=== PATIENT | female | born 1985 | race Caucasian/White ===

== ENCOUNTER 2022-01-31 08:45 | Emergency (ER) | payer BC, SELFPAY ==
[2022-01-31 08:49] VITALS: BP 120/82; PULSE 72; RESP 18; TEMP 36.4; O2SAT 99; BMI 32.9
--- NOTE | 2022-01-31 09:10 | CRLHL7_ITS ---
For Patients: As a result of the Century Cures Act, medical imaging exams and procedure reports are released immediately into your electronic medical record. You may view this report before your referring provider. If you have questions, please contact your health care provider. INDICATION: Chest pain no MV TECHNIQUE: Two view chest. FINDINGS: The lungs are clear. The heart, mediastinum and pulmonary vessels are of normal size. There is no evidence of pleural disease. IMPRESSION: Negative chest. Dictated by Prabha Trinidad MD @ 01/31/2022 10:35:56 AM (Electronically Signed)
--- OUTSIDE RECORDS SUMMARY | 2022-01-31 09:17 | XMS_ITS ---
:1985 Author Care Team Providers Name Role Phone MARGUERITE GONZALEZ Primary Care Provider [phone] Allergies Code Code System Name Reaction Severity Status Onset NKDA ? Medications Name Status Start Date Stop Date ? ? amitriptyline 25 mg tablet Active ? Not a vailable TAKE ONE TABLET BY MOUTH AT BEDTIME amoxicillin 875 mg tablet Active ? Not av ailable TAKE ONE TABLET BY MOUTH TWICE DAILY azithromycin 250 mg tablet Active ? Not a vailable TAKE 2 TABLETS BY MOUTH ON DAY 1, THEN TAKE 1 TABLET ONCE DAILY ON DAYS 2 THROUGH 5 azithromycin 500 mg tablet Completed ? 07/07 cefuroxime axetil 250 mg tablet Active ? Not available TAKE ONE TABLET BY MOUTH TWICE DAILY clobetasol 0.05 % topical cream Active ? Not available APPLY SMALL AMOUNT TOPICALLY TO AFFECTE D AREA TWICE DAILY FOR 2 WEEKS NEEDED. doxycycline monohydrate 100 mg capsule Completed ? 07/07/2020 TAKE 1 CAPSULE BY MOUTH TWICE DAILY FOR 14 DAYS fluconazole 100 mg tablet Completed ? 2020 TAKE 1 TABLET BY MOUTH DAILY. fluconazole 150 mg tablet Active ? Not av ailable TAKE 1 TABLET BY MOUTH, MAY REPEAT IN 3-4 DAYS fluticasone propionate 50 mcg/actuation nasal spray,suspension A ctive ? Not available instill 2 SPRAYs into EACH NOSTR DAILY hydrocortisone 2.5 % topical ointment Completed ? 07/07/2020 APPLY TO AFFECTED AREA(S) topically twice daily levofloxacin 500 mg tablet Completed ? 07/07 TAKE 1 TABLET BY MOUTH DAILY for 7 days metronidazole 0.75 % (37.5 mg/5 gram) vaginal gel Active ? Not available Insert 1 applicatorful vaginally at bedtime for 5 nights. nitrofurantoin monohydrate/macrocrystals 100 mg capsule Complete d ? 07/07/2020 TAKE ONE CAPSULE BY MOUTH TWICE DAILY oseltamivir 75 mg capsule Active ? Not av ailable TAKE 1 CAPSULE BY MOUTH TWICE DAILY FOR 5 DAYS phenazopyridine 200 mg tablet Completed ? TAKE ONE TABLET BY MOUTH TWICE DAILY prednisone 20 mg tablet Active ? Not avai lable TAKE ONE TABLET BY MOUTH TWICE DAILY sucralfate 1 gram tablet Active ? Not alyssa ilable take 1 tablet by mouth 4 times daily tamsulosin 0.4 mg capsule Active ? Not av ailable TAKE ONE CAPSULE BY MOUTH DAILY terbinafine HCl 250 mg tablet Completed ? TAKE ONE TABLET BY MOUTH DAILY triamcinolone acetonide 0.1 % topical cream Active ? Not available APPLY TO AFFECTED AREA(S) TOPICALLY TWICE A DAY valacyclovir 500 mg tablet Active ? Not a vailable TAKE 1 TABLET BY MOUTH TWICE DAILY Problems None recorded. Procedures Date Name Performed by ? 06/13/2020 CT, Urogram Information not avai lable Notes: NONE Results Lab Results Date Name Specimen Result Interpretation Description Value Range Status Address ? 07/07/2020 Urinalysis, Dipstick Urine ? Color-Status Yellow ? Urine ? Glucose-Status Negative ? Urine ? Bilirubin-Status Negative ? Urine ? Ketones-Status Negative ? Urine ? Nitrates-Status negative ? Urine ? Blood-Status Moderate ? Urine ? Leuko-Status Negative ? ? 07/07/2020 Urinalysis, Dipstick ? No observation ? ? ? recorded. 07/07/2020 Urinalysis, Dipstick ? No observation ? ? ? recorded. 06/16/2020 Bladder Scan (PROC) ? No observation ? ? ? recorded. 06/16/2020 Urinalysis, Dipstick ? No observation ? ? ? recorded. 06/13/2020 Urinalysis, Dipstick ? No observation ? ? ? recorded. Past Encounters None recorded. Social History Tobacco Smoking Status Never Smoker Vaccine List Notes: NONE Plan of Care Reminders Provider Appointments None recorded. ? ? Lab None recorded. ? ? Referral None recorded. ? ? Procedures None recorded. ? ? Surgeries None recorded. ? ? Imaging None recorded. ? ? Vitals 07/07/2020 01:30PM ESTABLISHED 10 Height Weight BMI 5 ft 2 in 170 lbs 31.1 kg/m2 06/13/2020 01:00PM NEW PATIENT 20 Height Weight BMI 5 ft 2 in 170 lbs 31.1 kg/m2
[2022-01-31] MEDS: 0.9 % SODIUM CHLORIDE 1000 ml 1,000 ML IV (09:50)
[2022-01-31 10:01] LABS: Basophils Absolute Auto 0.02 K/uL (0.00-0.30); Basophils Percent Auto 0.4 % (0.0-3.0); Eosinophils Absolute Auto 0.12 K/uL (0.00-0.50); Eosinophils Percent Auto 2.2 % (0.0-7.0); Hematocrit 38.3 % (33.0-51.0); Hemoglobin* 12.7 gm/dL (12.0-16.0); Immature Granulocytes Abs Auto 0.02 K/uL (0.00-0.30); Lymphocytes Absolute Auto 1.83 K/uL (0.90-2.90); Lymphocytes Percent Auto 32.9 % (20-44); Mean Corpuscular HGB Conc 33 gm/dL (32-36); Mean Corpuscular Hemoglobin 31 pg (26-34); Mean Corpuscular Volume 93 fL (80-100); Monocytes Percent Auto 6.7 % (0.0-11.0); Neutrophils Percent Auto 57.4 % (42.0-72.0); Platelet Count* 290 K/uL (140-440); Red Blood Count 4.11 m/uL (4.00-5.20); White Blood Count* 5.56 K/uL (4.50-11.00)
[2022-01-31] MEDS: GI COCKTAIL (VISC LIDO/ANTACID) 30 ML PO (10:07)
[2022-01-31] MEDS: ASPIRIN 81 MG TAB.CHEW 162 MG PO (10:07)
[2022-01-31] MEDS: KETOROLAC 30 MG/ML inj IVP (10:08)
[2022-01-31] MEDS: PANTOPRAZOLE SODIUM 40 MG INJ IVP (10:09)
[2022-01-31 10:13] LABS: Slide Review Reflex No
[2022-01-31 10:15] LABS: Chloride* 106 mmol/L (96-114); Potassium* 3.9 mmol/L (3.6-5.1); Sodium* 139 mmol/L (135-149)
[2022-01-31 10:18] LABS: Blood Urea Nitrogen* 11 mg/dL (5-24); Carbon Dioxide* 26 mmol/L (20-32); Creatinine* 0.6 mg/dL (0.5-1.5); D Dimer Quantitative* 0.67 ug/ml (0.00-0.50); Est. Creatinine Clearance* 102.52; Estimated Glomerular Filt Rate 119 ml/min; Glucose* 81 mg/dL (60-115)
[2022-01-31 10:19] LABS: Calcium* 8.8 mg/dL (8.4-10.6)
[2022-01-31 10:28] LABS: NT Pro B Type NatriureticPept* 123 PG/mL (0-125)
[2022-01-31 10:35] LABS: C Reactive Protein* < 0.5 mg/dL (0.5-1.0)
--- NOTE | 2022-01-31 10:53 | CRLHL7_ITS ---
For Patients: As a result of the Century Cures Act, medical imaging exams and procedure reports are released immediately into your electronic medical record. You may view this report before your referring provider. If you have questions, please contact your health care provider. Indication: Shortness of breath Technique: Contrast CT PE Comparison: No comparison Findings: Normal caliber thoracic aorta. No pulmonary emboli. No pericardial effusion. Heart size is normal. Lungs appear clear. Impression: 1. No pulmonary emboli. Lungs appear clear. Please note that all CT scans at this facility use dose modulation, iterative reconstruction, and/or weight-based dosing when appropriate to reduce radiation dose to as low as reasonably achievable. Dictated by Prabha Trinidad MD @ 01/31/2022 12:16:08 PM (Electronically Signed)
[2022-01-31 11:00] VITALS: BP 112/84; PULSE 61; RESP 12; O2SAT 100
--- NOTE | 2022-01-31 11:18 | ED_ITS ---
HPI - Chest Pain General Date Seen: 01/31/22 Chief Complaint: Chest Pain Stated Complaint: Chest pain Time Seen by Provider: 01/31/22 08:56 Source: patient Mode of arrival: ambulatory Limitations: no limitations History of Present Illness HPI narrative: 36-year-old female presents here with chest pain she has had now for 3-4 days. She describes pain in the center of her chest radiating across more of a burning (like she smoked 2000 cigarettes) there is no radiation to her back, neck, shoulders, associated with this. She describes it at rest as well as movement. Maybe a little bit more with pressure over her chest region. Denies any rashes associated with this, no burping, no relation to foods, and has not tried anything at home. She does have a history of SVTs in the past, since she was really on but this is different, she does not have a rapid heart rate. This worried her, and she want to come in and get checked. complaint: chest pain Onset (ago): day(s) Timing of current episode: episodic Prior episodes: No Onset: during rest Pain location: substernal and parasternal Pain radiation: none Severity: moderate Relieving factors: nothing Exacerbating factors: nothing Treatment prior to arrival: none Risk Factors Coronary artery disease risk factors: none Thoracic aortic dissection risk factors: none Related Data On Oral Contraceptives: Yes Home Medications Medication Instructions Recorded Confirmed levonorgestrel 20 mcg/24 hours (8 1 device intrauterine ONCE 10/13/21 01/31/22 yrs) 52 mg intrauterine device qyhutyonmbjq-Ed-bmqp-minerals 1 tab PO QDAY 10/13/21 01/31/22 tamsulosin 0.4 mg capsule 0.4 mg PO .Daily as needed PRN 10/13/21 11/12/21 triamcinolone acetonide 0.1 % 1 applic topical BID 10/13/21 01/31/22 topical cream valacyclovir 500 mg tablet 500 mg PO BID 10/14/21 11/12/21 Allergies Allergy/AdvReac Type Severity Reaction Status Date / Time No Known Allergies Allergy Unknown Verified 01/31/22 08:54 Review of Systems Status of ROS Reports: 10 or more systems reviewed and unremarkable except as noted in History and below [facility] Medical History (Updated 01/31/22 @ 12:25 by Stewart Pringle MD) Delivery normal Herpes simplex History of supraventricular tachycardia Supraventricular tachycardia Surgical History (Updated 10/12/21 @ 10:23 by Hardik Chavarria) History of colonoscopy Family History (Updated 10/12/21 @ 10:24 by Hardik Chavarria) Mother Breast cancer Diabetes Maternal Grandmother Breast cancer Father Stroke Social History (Updated 10/12/21 @ 10:24 by Hardik Chavarria) Narrative: does not use illicit drugs IUD (intrauterine device) in place nonsmoker Smoking Status: Never smoker Exam Narrative Exam Narrative: Patient is seen in room 3 in no apparent distress her pupils are equal round reactive to light there is no scleral icterus or redness or TMs are normal her oropharynx is normal, cranial nerves 3-12 are normal, JVP is flat, carotid upstrokes are equal, absence of meningismus is noted. Chest is good air entry bilaterally with absence of wheezes or crackles, easy respirations with no signs of respiratory distress, she is mildly tender over her chest on palpation, on the costochondral areas. S1-S2 is normal there is no S3-S4 clicks murmurs or gallops noted, abdomen is soft there is no guarding no hepato splenomegaly, bowel sounds are normal, extremities are all normal with no edema, moves all extremities independently and well. Neurologically intact in her upper lower extremities, Const Vital Signs, click to edit/add: Vital Signs - 24 hr 01/31/22 08:49 01/31/22 11:00 01/31/22 12:00 Temperature 97.5 F L Pulse Rate [Right Pulse Oximeter] 72 61 64 Respiratory Rate 18 12 12 Blood Pressure [Right Upper Arm] 120/82 112/84 130/95 H Pulse Oximetry 99 100 99 Oxygen Delivery Method Room Air 01/31/22 12:30 01/31/22 12:43 Temperature 97.5 F L Pulse Rate [Right Pulse Oximeter] 61 61 Respiratory Rate 12 12 Blood Pressure [Right Upper Arm] 123/88 123/88 Pulse Oximetry 99 Oxygen Delivery Method Course Course Hospital Course: I went back in and discussed with Radha, her CT scan shows no evidence of a blood clot, her EKG was normal her troponin is normal, her D-dimer was slightly elevated but that was the reason we did the CT scan, her pain is atypical for cardiac disease and I do not think this is related to a PE, I do not think she is having dissection I think this is more likely there mechanical from the chest wall or possibly GI. I think a little bit of prep result would be helpful. Vital Signs Vital signs: Initial Vital Signs Temperature 97.5 F L 01/31/22 08:49 Temperature Source Temporal Artery Scan 01/31/22 08:49 Pulse Rate 72 01/31/22 08:49 Respiratory Rate 18 01/31/22 08:49 Blood Pressure 120/82 01/31/22 08:49 Blood Pressure Mean 94 01/31/22 08:49 Blood Pressure Position Sitting 01/31/22 08:49 Pulse Oximetry 99 01/31/22 08:49 Oxygen Delivery Method 01/31/22 08:49 Vital Signs Temperature 97.5 F L 01/31/22 08:49 Pulse Rate 72 01/31/22 08:49 Respiratory Rate 18 01/31/22 08:49 Blood Pressure 120/82 01/31/22 08:49 Pulse Oximetry 99 01/31/22 08:49 Oxygen Delivery Method 01/31/22 08:49 Temperature 97.5 F L 01/31/22 12:43 Pulse Rate 61 01/31/22 12:43 Respiratory Rate 12 01/31/22 12:43 Blood Pressure 123/88 01/31/22 12:43 Pulse Oximetry 99 01/31/22 12:30 Oxygen Delivery Method 01/31/22 08:49 MDM - Chest Pain MDM Narrative Medical decision making narrative: During the evaluation of this patient I considered multiple differential diagnosis is. The life-threatening differential diagnosis include coronary disease/MA, pulmonary embolism, pneumothorax, pneumonia, and aortic dissection. Other differential diagnosis included but were not limited to pericarditis, myocarditis, chest wall pain, GERD, esophageal rupture, rib fracture contusion, pleurisy, as well as other etiologies. Medical Records Data Attestation: I reviewed the patient's medical records. Lab Data Attestation: I reviewed the patient's lab results. Lab results narrative: Review of her lab test did show her D-dimer was elevated, in the setting of chest pain along with her use of oral contraceptives I discussed with her getting a CT of her chest, which she agreed too. We will go ahead and get this done. To rule out pulmonary embolism. Labs: Lab Results 10/30/22 10/30/22 10/30/22 Range/Units 09:50 09:50 09:50 WBC 5.56 (4.50-11.00) K/uL RBC 4.11 (4.00-5.20) m/uL Hgb 12.7 (12.0-16.0) gm/dL Hct 38.3 (33.0-51.0) % MCV 93 (80-100) fL MCH 31 (26-34) pg MCHC 33 (32-36) gm/dL RDW Coeff of Larry 12.0 (11.5-15.5) % Plt Count 290 (140-440) K/uL Neut % (Auto) 57.4 (42.0-72.0) % Lymph % (Auto) 32.9 (20-44) % Thomas % (Auto) 6.7 (0.0-11.0) % Eos % (Auto) 2.2 (0.0-7.0) % Baso % (Auto) 0.4 (0.0-3.0) % Neut # (Auto) 3.20 (1.7-7.0) K/uL Lymph # (Auto) 1.83 (0.90-2.90) K/uL Thomas # (Auto) 0.40 (0.00-0.90) K/UL Eos # (Auto) 0.12 (0.00-0.50) K/uL Baso # (Auto) 0.02 (0.00-0.30) K/uL Abs Immat Gran (auto) 0.02 (0.00-0.30) K/uL D-Dimer Quant (PE/DVT) 0.67 H (0.00-0.50) ug/ml Sodium 139 (135-149) mmol/L Potassium 3.9 (3.6-5.1) mmol/L Chloride 106 (96-114) mmol/L Carbon Dioxide 26 (20-32) mmol/L BUN 11 (5-24) mg/dL Creatinine 0.6 (0.5-1.5) mg/dL Estimated Creat Clear 102.52 Estimated GFR 119 ml/min Glucose 81 (60-115) mg/dL Calcium 8.8 (8.4-10.6) mg/dL C-Reactive Protein < 0.5 L (0.5-1.0) mg/dL NT-Pro-B Natriuret Pep 123 (0-125) PG/mL POC Troponin I (0.01-0.04) ng/ml 01/31/22 Range/Units 09:50 WBC (4.50-11.00) K/uL RBC (4.00-5.20) m/uL Hgb (12.0-16.0) gm/dL Hct (33.0-51.0) % MCV (80-100) fL MCH (26-34) pg MCHC (32-36) gm/dL RDW Coeff of Larry (11.5-15.5) % Plt Count (140-440) K/uL Neut % (Auto) (42.0-72.0) % Lymph % (Auto) (20-44) % Thomas % (Auto) (0.0-11.0) % Eos % (Auto) (0.0-7.0) % Baso % (Auto) (0.0-3.0) % Neut # (Auto) (1.7-7.0) K/uL Lymph # (Auto) (0.90-2.90) K/uL Thomas # (Auto) (0.00-0.90) K/UL Eos # (Auto) (0.00-0.50) K/uL Baso # (Auto) (0.00-0.30) K/uL Abs Immat Gran (auto) (0.00-0.30) K/uL D-Dimer Quant (PE/DVT) (0.00-0.50) ug/ml Sodium (135-149) mmol/L Potassium (3.6-5.1) mmol/L Chloride (96-114) mmol/L Carbon Dioxide (20-32) mmol/L BUN (5-24) mg/dL Creatinine (0.5-1.5) mg/dL Estimated Creat Clear Estimated GFR ml/min Glucose (60-115) mg/dL Calcium (8.4-10.6) mg/dL C-Reactive Protein (0.5-1.0) mg/dL NT-Pro-B Natriuret Pep (0-125) PG/mL POC Troponin I 0.00 L (0.01-0.04) ng/ml ECG Data Attestation: I personally reviewed and interpreted this ECG as follows: ECG interpretation date: 01/31/22 Prior ECG tracings: available for review Interpretation: EKG shows normal sinus rhythm, with mild sinus arrhythmia, with the ventricular rate is 63, no acute ST wave changes. Discharge Plan Discharge Clinical Impression: Chest pain Patient Disposition: Home, Self-Care Condition: Stable Instructions: Chest Pain (DC) Additional Instructions: Home, rest. use of Tylenol for the discomfort in her chest, I would also suggest using Prilosec 20 mg a day for the next 3-4 weeks, this is best purchased at [employer] or [employer] as it is the cheapest there. Follow-up with primary care if ongoing signs and symptoms, consideration of other testing such as upper endoscopy if this continues and the Prilosec does not help. The good news is the heart and lungs all tested out normal. Prescriptions: No Action tamsulosin 0.4 mg capsule 0.4 mg PO .Daily as needed PRN pqsbtyjoraoc-Gh-ygmh-minerals Tablet 1 tab PO QDAY levonorgestrel 20 mcg/24 hours (7 yrs) 52 mg intrauterine device 1 device intrauterine ONCE Rx Instructions: as a single dose triamcinolone acetonide 0.1 % cream 1 applic topical BID valacyclovir 500 mg tablet 500 mg PO BID Follow Up/Referrals: Malena Aguayo PA-C [Primary Care Provider] - Stand Alone Forms: [employer] Info Instructions
[2022-01-31] MEDS: ACETAMINOPHEN 500 MG TABLET 1000 MG PO (11:54)
[2022-01-31 12:00] VITALS: BP 130/95; PULSE 64; RESP 12; O2SAT 99
[2022-01-31 12:30] VITALS: BP 123/88; PULSE 61; RESP 12; O2SAT 99
[2022-01-31 12:43] VITALS: BP 123/88; PULSE 61; RESP 12; TEMP 36.4
== END 2022-01-31 12:44 | disposition home or self-care (01) ==
PROVIDERS: Emergency Provider Family Medicine; PCP Physician Assistant Medical
DX: R07.9 Chest pain, unspecified (principal)
CPT/HCPCS: 36415; 71046; 71260; 80048; 83880; 85025; 85379; 86140; 93005; 96374; 96375; 99284; 99285; A9270; C9113; J1885; J7030; Q9967

== ENCOUNTER 2022-06-30 14:20 | Outpatient (CLI) | payer BC, SELFPAY | END 2022-06-30 14:21 | disposition home or self-care (01) | PROVIDERS: PCP Physician Assistant Medical; Visit Provider Physician Assistant Medical | DX: R10.9 Unspecified abdominal pain (principal) | CPT/HCPCS: 80076; 83690 ==

== ENCOUNTER 2023-01-26 09:36 | Emergency (ER) | payer BC, SELFPAY ==
[2023-01-26 09:58] VITALS: BP 142/86; PULSE 77; RESP 18; TEMP 36.1; O2SAT 98; BMI 32.0
[2023-01-26 10:31] VITALS: O2SAT 99
--- NOTE | 2023-01-26 10:32 | ED_ITS ---
HPI - General Adult General Chief complaint: Arrhythmia/Palpitations Stated complaint: irregular heartbeat Time Seen by Provider: 01/26/23 10:27 History of Present Illness HPI narrative: Patient is a 37 year white female has had history of ?tachycardia?, but for the last 3 days has had regular pounding-type heart rate. She has not been sick has not had a fever chills cough. She has not had any bleeding or clotting problems. Her chart was reviewed she has a history of alcohol use although denies that anxiety GE reflux pleuradynia. Patient reports she has had occasional transient shortness of breath from the heart palpitation. She has worn a hot heart monitor recently and no evidence was found of any arrhythmia. Denies any history of chest pain or cardiac procedures. Not on any home meds, no allergies Related Data Home Medications Medication Instructions Recorded Confirmed levonorgestrel 21 mcg/24 hours (8 1 device intrauterine ONCE 10/13/21 12/16/22 yrs) 52 mg intrauterine device ymqmuahpblue-Te-zpnj-minerals 1 tab PO QDAY 10/13/21 12/16/22 valacyclovir 500 mg tablet 500 mg PO QDAY PRN 12/16/22 12/16/22 Allergies Allergy/AdvReac Type Severity Reaction Status Date / Time No Known Allergies Allergy Unknown Verified 12/16/22 13:37 Review of Systems Status of ROS: Reports: 10 or more systems reviewed and unremarkable except as noted in History and below PFSH [facility] Medical History Urinary tract infection ?N39.0 - Urinary tract infection, site not specified (ICD-10) Herpes simplex ?B00.9 - Herpesviral infection, unspecified (ICD-10) Supraventricular tachycardia ?I47.1 - Supraventricular tachycardia (ICD-10) History of supraventricular tachycardia ?Z86.79 - Personal history of other diseases of the circulatory system (ICD-10) Delivery normal ?O80 - Encounter for full-term uncomplicated delivery (ICD-10) Surgical History History of colonoscopy ?Z98.890 - Other specified postprocedural states (ICD-10) Family History Mother Breast cancer Diabetes Maternal Grandmother Breast cancer Father Stroke Social History Narrative: does not use illicit drugs IUD (intrauterine device) in place nonsmoker Smoking Status: Never smoker Exam Narrative: Exam Narrative: Objective: Vital signs are unremarkable, pulse is 77 and regular HEENT is unremarkable, patient is alert oriented Neck is supple Chest is clear Heart rhythm regular with occasional ectopic beat noted, no murmur Extremities are no edema, neurologic nonfocal Const: Vital Signs, click to edit/add: Vital Signs - 24 hr 01/26/23 09:58 01/26/23 10:31 01/26/23 11:35 Temperature 97.0 F L Pulse Rate 73 Pulse Rate [Right Pulse Oximeter] 77 Respiratory Rate 18 18 Blood Pressure 123/90 H Blood Pressure [Ri ght Upper Arm] 142/86 H Pulse Oximetry 98 99 Oxygen Delivery Me thod Room Air Course Vital Signs Vital signs: Initial Vital Signs Temperature 97.0 F L 01/26/23 09:58 Temperature Source Temporal Artery Scan 01/26/23 09:58 Pulse Rate 77 01/26/23 09:58 Respiratory Rate 18 01/26/23 09:58 Blood Pressure 142/86 H 01/26/23 09:58 Blood Pressure Mean 104 01/26/23 09:58 Blood Pressure Position Sitting 01/26/23 09:58 Pulse Oximetry 98 01/26/23 09:58 Oxygen Delivery Method Room Air 01/26/23 09:58 Vital Signs Temperature 97.0 F L 01/26/23 09:58 Pulse Rate 77 01/26/23 09:58 Respiratory Rate 18 01/26/23 09:58 Blood Pressure 142/86 H 01/26/23 09:58 Pulse Oximetry 98 01/26/23 09:58 Oxygen Delivery Method Room Air 01/26/23 09:58 Temperature 97.0 F L 01/26/23 09:58 Pulse Rate 73 01/26/23 11:35 Respiratory Rate 18 01/26/23 11:35 Blood Pressure 123/90 H 01/26/23 11:35 Pulse Oximetry 99 01/26/23 10:31 Oxygen Delivery Method Room Air 01/26/23 09:58 Medical Decision Making [facility] Narrative Medical decision making narrative: 37-year-old female with history of palpitations, history of ?tachycardia?, with now episodes of hard heartbeats intermittently or 3 days. Think be appropriate to do lab studies thyroid profile, point of care troponin, electrolytes, IV fluid to be given, patient will leave with a Holter monitor. She did describe what looked like a hard heart beat and a transient paused and looked like a PAC on her telemetry. Will make sure electrolytes are normal. She denies any illicit drug use or medications that she has taken recently Addendum 1:28 p.m.: Patient's white count hemoglobin are normal, D-dimer was elevated 0.[address] angiogram of the chest is negative for PE or pneumonia. She has 2 very small pulmonary nodules that by definition and risk stratification look like they do not need follow-up, would have her talk about this with regular doctor, some people repeat a CT in about 12 months. ER profile is unremarkable CRP is negative point of care troponin is negative, EKG looks unremarkable. At this point I think a Holter be a good idea and follow up with primary care to discuss both her CT findings and her Holter monitor results. She could schedule this within the next 4-5 days. Return sooner as needed. Lab Data Labs: Lab Results 01/26/23 01/26/23 Range/Units 10:32 10:45 WBC 6.78 (4.50-11.00) K/uL RBC 4.36 (4.00-5.20) m/uL Hgb 13.7 (12.0-16.0) gm/dL Hct 42.1 (33.0-51.0) % MCV 97 (80-100) fL MCH 31 (26-34) pg MCHC 33 (32-36) gm/dL RDW Coeff of Larry 11.8 (11.5-15.5) % Plt Count 373 (140-440) K/uL Neut % (Auto) 57.7 (42.0-72.0) % Lymph % (Auto) 33.9 (20-44) % Williams % (Auto) 5.9 (0.0-11.0) % Eos % (Auto) 1.8 (0.0-7.0) % Baso % (Auto) 0.4 (0.0-3.0) % Neut # (Auto) 3.91 (1.7-7.0) K/uL Lymph # (Auto) 2.30 (0.90-2.90) K/uL Williams # (Auto) 0.40 (0.00-0.90) K/UL Eos # (Auto) 0.12 (0.00-0.50) K/uL Baso # (Auto) 0.03 (0.00-0.30) K/uL Abs Immat Gran (auto) 0.02 (0.00-0.30) K/uL Imm/Tot Granulo (auto) 0.3 % D-Dimer Quant (PE/DVT) 0.60 H (0.00-0.50) ug/ml Sodium 139 (135-149) mmol/L Potassium 4.1 (3.6-5.1) mmol/L Chloride 106 (96-114) mmol/L Carbon Dioxide 23 (20-32) mmol/L Anion Gap 10 (7-15) mEq/L BUN 14 (5-24) mg/dL Creatinine 0.6 (0.5-1.5) mg/dL Estimated Creat Clear 101.53 Estimated GFR 118 ml/min Glucose 75 (60-115) mg/dL Calcium 9.1 (8.4-10.6) mg/dL C-Reactive Protein < 0.5 L (0.5-1.0) mg/dL TSH 1.420 (0.270-4.20) uIU/mL HCG, Qual Negative (Negative) POC Troponin I 0.00 L (0.01-0.04) ng/ml Discharge Plan Discharge Clinical Impression: Heart palpitations Patient Disposition: Home, Self-Care Condition: Stable Additional Instructions: With a Holter monitor, you have 2 very tiny lung nodules that basically probably do not need recheck but you could talk about this with her regular doctor. Would recommend normal activity and avoid caffeine, recommend discussing with in the next 4-5 days with your regular doctor your CT report as well as your Holter monitor results. Return to ED sooner problems or concerns. Activity Level: No Restrictions Discharge Diet: Regular Prescriptions: No Action valacyclovir 500 mg tablet 500 mg PO QDAY PRN vqogrxgrcjju-Wg-vcly-minerals Tablet 1 tab PO QDAY levonorgestrel 20 mcg/24 hours (7 yrs) 52 mg intrauterine device 1 device intrauterine ONCE Rx Instructions: as a single dose Follow Up/Referrals: Malena Aguayo PA-C [Primary Care Provider] - Stand Alone Forms: [employer] Info Instructions
[2023-01-26] MEDS: 0.9 % SODIUM CHLORIDE 1000 ml 1,000 ML 6000 ML IV (10:54)
[2023-01-26 10:59] LABS: Basophils Absolute Auto 0.03 K/uL (0.00-0.30); Basophils Percent Auto 0.4 % (0.0-3.0); Eosinophils Absolute Auto 0.12 K/uL (0.00-0.50); Eosinophils Percent Auto 1.8 % (0.0-7.0); Hematocrit 42.1 % (33.0-51.0); Hemoglobin* 13.7 gm/dL (12.0-16.0); Immature Granulocytes Abs Auto 0.02 K/uL (0.00-0.30); Immature Granulocytes Pct Auto 0.3 %; Lymphocytes Percent Auto 33.9 % (20-44); Mean Corpuscular HGB Conc 33 gm/dL (32-36); Mean Corpuscular Hemoglobin 31 pg (26-34); Mean Corpuscular Volume 97 fL (80-100); Monocytes Percent Auto 5.9 % (0.0-11.0); Neutrophils Absolute Auto 3.91 K/uL (1.7-7.0); Neutrophils Percent Auto 57.7 % (42.0-72.0); Platelet Count* 373 K/uL (140-440); RDW Coefficient of Variation % 11.8 % (11.5-15.5); Red Blood Count 4.36 m/uL (4.00-5.20); White Blood Count* 6.78 K/uL (4.50-11.00)
[2023-01-26 11:14] LABS: Chloride* 106 mmol/L (96-114); Slide Review Reflex No
[2023-01-26 11:15] LABS: Potassium* 4.1 mmol/L (3.6-5.1); Sodium* 139 mmol/L (135-149)
[2023-01-26 11:17] LABS: Anion Gap 10 mEq/L (7-15); Carbon Dioxide* 23 mmol/L (20-32); Creatinine* 0.6 mg/dL (0.5-1.5); Est. Creatinine Clearance* 101.53; Estimated Glomerular Filt Rate 118 ml/min
[2023-01-26 11:18] LABS: Blood Urea Nitrogen* 14 mg/dL (5-24); Calcium* 9.1 mg/dL (8.4-10.6); Glucose* 75 mg/dL (60-115)
[2023-01-26 11:21] LABS: C Reactive Protein* < 0.5 mg/dL (0.5-1.0)
[2023-01-26 11:35] VITALS: BP 123/90; PULSE 73; RESP 18
--- NOTE | 2023-01-26 11:35 | CRLHL7_ITS ---
For Patients: As a result of the Century Cures Act, medical imaging exams and procedure reports are released immediately into your electronic medical record. You may view this report before your referring provider. If you have questions, please contact your health care provider. INDICATION: Shortness of breath, chest pain. COMPARISON: CT chest 01/31/2022. TECHNIQUE: CT chest angiogram PE protocol acquired with 95 cc of Isovue 370 IV contrast. Coronal and sagittal reconstructions. 2D and 3D MIP images for post processing were performed and interpreted on an independent workstation, and 3D images were permanently archived. FINDINGS: Normal heart size. Normal caliber thoracic aorta and central pulmonary arteries. No acute pulmonary embolism identified. No pericardial effusion. No thoracic lymphadenopathy. The imaged thyroid gland is normal in appearance. No focal consolidation, pleural effusion, or pneumothorax. Minimal bibasilar atelectasis. Stable 4 mm noncalcified pulmonary nodule in the right middle lobe (series 5, image 101). Stable 5 mm noncalcified pulmonary nodule along the left major fissure (image 75). No central endobronchial lesion or significant bronchial wall thickening. The visualized upper abdomen is unremarkable. The bones are within normal limits. IMPRESSION: 1. Negative for acute pulmonary embolism. No other acute findings in the chest. 2. Two stable noncalcified pulmonary nodules measuring up to 5 mm. Please see follow-up guidelines below. [employer] GUID[employer] - SOLID NODULES: : MULTIPLE LOW RISK - nodule less than 6 mm: No routine follow-up. - nodule 6-8 mm: CT at 3-6 months, then consider CT at 18-24 months. - nodule greater than 8 mm: CT at 3-6 months, then consider CT at 18-24 months. MULTIPLE HIGH RISK - nodule less than 6 mm: Optional CT at 12 months. - nodule 6-8 mm: CT at 3-6 months, then at 18-24 months. - nodule greater than 8 mm: CT at 3-6 months, then at 18-24 months. Please note that all CT scans at this facility use dose modulation, iterative reconstruction, and/or weight-based dosing when appropriate to reduce radiation dose to as low as reasonably achievable. Dictated by Rita Bush MD @ 01/26/2023 1:08:41 PM (Electronically Signed)
[2023-01-26 12:36] LABS: HCG Qualitative Serum* Negative (Negative)
== END 2023-01-26 13:44 | disposition home or self-care (01) ==
PROVIDERS: Emergency Provider Family Medicine; PCP Physician Assistant Medical
DX: R00.2 Palpitations (principal)
CPT/HCPCS: 36415; 71275; 80048; 84443; 84484; 84703; 85025; 85379; 86140; 93005; 93225; 93226; 94761; 99284; 99285; J7030; Q9967

== ENCOUNTER 2023-03-11 13:53 | Outpatient (CLI) | payer BC, SELFPAY | END 2023-03-11 13:54 | disposition home or self-care (01) | LOC: RAD 13:55 | PROVIDERS: PCP Physician Assistant Medical; Visit Provider Physician Assistant Medical | DX: R00.2 Palpitations (principal) | CPT/HCPCS: 93306 ==

== ENCOUNTER 2023-05-12 07:32 | Emergency (ER) | payer MEDICAID, SELFPAY ==
[2023-05-12 07:37] VITALS: BP 125/82; PULSE 78; RESP 16; TEMP 36.4; O2SAT 98; BMI 32.9
[2023-05-12 07:55] LABS: Appearance Urine Clear (Clear); Bilirubin Urine Negative (Negative); Blood Urine 3+ (Negative); Color Urine Yellow (Yellow); Glucose Urine Negative (Negative); Ketones Urine Negative (Negative); Leukocyte Esterase Urine Negative (Negative); Nitrite Urine Negative (Negative); Protein Urine Negative (Negative); Specific Gravity Urine >= 1.030 (1.000-1.030); Urobilinogen Urine 0.2 (0.2-1.0)
[2023-05-12 08:25] LABS: Basophils Absolute Auto 0.03 K/uL (0.00-0.30); Basophils Percent Auto 0.4 % (0.0-3.0); Eosinophils Percent Auto 1.3 % (0.0-7.0); Hematocrit 39.9 % (33.0-51.0); Hemoglobin* 13.1 gm/dL (12.0-16.0); Immature Granulocytes Abs Auto 0.03 K/uL (0.00-0.30); Immature Granulocytes Pct Auto 0.4 %; Lymphocytes Absolute Auto 1.57 K/uL (0.90-2.90); Lymphocytes Percent Auto 21.2 % (20-44); Mean Corpuscular HGB Conc 33 gm/dL (32-36); Mean Corpuscular Hemoglobin 31 pg (26-34); Mean Corpuscular Volume 95 fL (80-100); Monocytes Percent Auto 6.5 % (0.0-11.0); Neutrophils Percent Auto 70.2 % (42.0-72.0); Platelet Count* 327 K/uL (140-440); RDW Coefficient of Variation % 12.3 % (11.5-15.5); White Blood Count* 7.41 K/uL (4.50-11.00)
[2023-05-12 08:26] LABS: Bacteria Urine Few; RBC Urine 0-2 (0-2); Squamous Epithelial Cell Urine Few (None-Few); WBC Urine 0-2 (0-5)
--- NOTE | 2023-05-12 08:26 | ED_ITS ---
HPI - General Adult General Chief complaint: Abdominal Pain Stated complaint: abdominal pain Time Seen by Provider: 05/12/23 07:54 Source: patient Mode of arrival: ambulatory Limitations: no limitations History of Present Illness HPI narrative: 37-year-old female coming in today complaining of abdominal pain for 1 week. Pain started on the left upper quadrant then radiated down the left side of the abdomen into the left lower quadrant where it remained for a couple of days. Then it radiated across the lower abdomen into the right lower quadrant, followed by radiation into the right upper quadrant. The pain on the left side is now completely gone. The right upper quadrant remains, and now she feels it in the epigastric region. She describes it as a burning sensation over the last 1 day. No nausea or vomiting. Normal appetite. No diarrhea or constipation, states that she has been going regularly. No urinary symptoms such as frequency, urgency or dysuria. No fevers or chills. She denies any increased or new physical activity. Patient is on control, partner has had a vasectomy. Patient is wondering if there are any blood test that can be done to rule out cancer. Related Data Home Medications Medication Instructions Recorded Confirmed levonorgestrel 21 mcg/24 hours (8 1 device intrauterine ONCE 10/13/21 05/12/23 yrs) 52 mg intrauterine device khbqqatrmaoi-De-vfwf-minerals 1 tab PO QDAY 10/13/21 05/12/23 valacyclovir 500 mg tablet 500 mg PO QDAY PRN 12/16/22 05/12/23 Previous Rx's Medication Instructions Recorded metoprolol succinate 25 mg 50 mg (2 x 25 mg) PO QDAY #180 tabs 04/11/23 tablet,extended release 24 hr Allergies Allergy/AdvReac Type Severity Reaction Status Date / Time No Known Allergies Allergy Unknown Verified 05/12/23 07:44 Review of Systems Status of ROS: Reports: 10 or more systems reviewed and unremarkable except as noted in History and below [facility] Medical History Normal echocardiogram (~03/11/23) 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 Alert and oriented. Answers questions appropriately. Mood and affect are appropriate. Thoughts are goal oriented and rational. No tangential or magical thinking noted. Patient speaks in full sentences without needing to catch her breath. HEENT: Normocephalic atraumatic. Pupils are equally round reactive to light. Extraocular muscles are intact. Conjunctivae are moist without any icterus noted. Moist mucous membranes. Neck is soft. Cardiovascular: Heart is regular rate and rhythm S1 and S2 are present without any murmurs. Lungs: Clear to auscultation bilaterally no wheezes rhonchi or rales are appreciated. Patient takes deep breaths without any discomfort. Abdomen: Soft and nontender nondistended with normal bowel sounds. No guarding or rebound. No masses or organomegaly appreciated. Extremities: Bilateral lower extremities are without edema. Normal DP and PT pulses. Skin: Well perfused without any obvious rashes. Const: Vital Signs, click to edit/add: Vital Signs - 24 hr 05/12/23 07:37 Temperature 97.6 F Pulse Rate [Pulse Oximeter] 78 Respiratory Rate 16 Blood Pressure [Ri ght Upper Arm] 125/82 Pulse Oximetry 98 Oxygen Delivery Me thod Room Air Course Course ED Course: Differential diagnosis at this times include musculoskeletal pain, excess gas, constipation. Given the description of her pain and her exam today, I do not feel that she has any life-threatening intra-abdominal pathology going on including cholecystitis, pancreatitis, ischemic bowel, appendicitis, aortic aneurysm, pyelonephritis or ectopic . We discussed that there are no blood test specific for generalized cancer. Patient would like to proceed with blood test to rule out infection, inflammation and organ function. CBCs entirely normal. UA does state 3+ blood, however, only 0-2 RBCs. Patient states that blood in her urine is not new. Chemistries, LFTs, CRP, lipase all normal. Urine test is negative. Vital Signs Vital signs: Initial Vital Signs Temperature 97.6 F 05/12/23 07:37 Temperature Source Temporal Artery Scan 05/12/23 07:37 Pulse Rate 78 05/12/23 07:37 Respiratory Rate 16 05/12/23 07:37 Blood Pressure 125/82 05/12/23 07:37 Blood Pressure Mean 96 05/12/23 07:37 Blood Pressure Position Sitting 05/12/23 07:37 Pulse Oximetry 98 05/12/23 07:37 Oxygen Delivery Method Room Air 05/12/23 07:37 Vital Signs Temperature 97.6 F 05/12/23 07:37 Pulse Rate 78 05/12/23 07:37 Respiratory Rate 16 05/12/23 07:37 Blood Pressure 125/82 05/12/23 07:37 Pulse Oximetry 98 05/12/23 07:37 Oxygen Delivery Method Room Air 05/12/23 07:37 Temperature 97.6 F 05/12/23 07:37 Pulse Rate 78 05/12/23 07:37 Respiratory Rate 16 05/12/23 07:37 Blood Pressure 125/82 05/12/23 07:37 Pulse Oximetry 98 05/12/23 07:37 Oxygen Delivery Method Room Air 05/12/23 07:37 Medical Decision Making MDM Narrative Medical decision making narrative: 37-year-old female with nonspecific abdominal pain. Workup unremarkable. Patient reassured. We discussed increased fluids, MiraLax and reasons for follow-up. Medical Records Medical records reviewed: Yes I reviewed the patient's medical records Lab Data Lab results reviewed: Yes I reviewed the patient's lab results Labs: Lab Results 05/12/23 05/12/23 05/12/23 Range/Units 07:45 08:15 08:15 WBC 7.41 (4.50-11.00) K/uL RBC 4.20 (4.00-5.20) m/uL Hgb 13.1 (12.0-16.0) gm/dL Hct 39.9 (33.0-51.0) % MCV 95 (80-100) fL MCH 31 (26-34) pg MCHC 33 (32-36) gm/dL RDW Coeff of Larry 12.3 (11.5-15.5) % Plt Count 327 (140-440) K/uL Neut % (Auto) 70.2 (42.0-72.0) % Lymph % (Auto) 21.2 (20-44) % [place] % (Auto) 6.5 (0.0-11.0) % Eos % (Auto) 1.3 (0.0-7.0) % Baso % (Auto) 0.4 (0.0-3.0) % Neut # (Auto) 5.20 (1.7-7.0) K/uL Lymph # (Auto) 1.57 (0.90-2.90) K/uL [place] # (Auto) 0.50 (0.00-0.90) K/UL Eos # (Auto) 0.10 (0.00-0.50) K/uL Baso # (Auto) 0.03 (0.00-0.30) K/uL Abs Immat Gran (auto) 0.03 (0.00-0.30) K/uL Imm/Tot Granulo (auto) 0.4 % Sodium Cancelled 141 Potassium Cancelled Chloride Carbon Dioxide Anion Gap BUN Creatinine Estimated Creat Clear Estimated GFR Glucose Calcium Total Bilirubin (0.1-1.5) mg/dL Direct Bilirubin (0.0-0.5) mg/dL AST (12-35) U/L ALT (4-35) U/L Alkaline Phosphatase (40-150) U/L C-Reactive Protein (0.5-1.0) mg/dL Total Protein (6.0-8.3) g/dL Albumin (3.3-5.0) g/dL Lipase (23-300) U/L Urine Color Yellow (Yellow) Urine Appearance Clear (Clear) Urine pH 6.0 (5.0-8.5) Ur Specific [place] >= 1.030 (1.000-1.030) Urine Protein Negative (Negative) Urine Glucose (UA) Negative (Negative) Urine Ketones Negative (Negative) Urine Blood 3+ A (Negative) Urine Nitrite Negative (Negative) Urine Bilirubin Negative (Negative) Urine Urobilinogen 0.2 (0.2-1.0) Ur Leukocyte Esterase Negative (Negative) Urine RBC 0-2 (0-2) Urine WBC 0-2 (0-5) Ur Squamous Epith Cells Few (None-Few) Urine Bacteria Few A (None) Urine Mucus Few A (None) 05/12/23 05/12/23 05/12/23 Range/Units 08:15 08:15 08:15 WBC (4.50-11.00) K/uL RBC (4.00-5.20) m/uL Hgb (12.0-16.0) gm/dL Hct (33.0-51.0) % MCV (80-100) fL MCH (26-34) pg MCHC (32-36) gm/dL RDW Coeff of Larry (11.5-15.5) % Plt Count (140-440) K/uL Neut % (Auto) (42.0-72.0) % Lymph % (Auto) (20-44) % [place] % (Auto) (0.0-11.0) % Eos % (Auto) (0.0-7.0) % Baso % (Auto) (0.0-3.0) % Neut # (Auto) (1.7-7.0) K/uL Lymph # (Auto) (0.90-2.90) K/uL [place] # (Auto) (0.00-0.90) K/UL Eos # (Auto) (0.00-0.50) K/uL Baso # (Auto) (0.00-0.30) K/uL Abs Immat Gran (auto) (0.00-0.30) K/uL Imm/Tot Granulo (auto) % Sodium Potassium 4.3 Chloride Cancelled 107 Carbon Dioxide Cancelled 25 Anion Gap Cancelled BUN Creatinine Estimated Creat Clear Estimated GFR Glucose Calcium Total Bilirubin (0.1-1.5) mg/dL Direct Bilirubin (0.0-0.5) mg/dL AST (12-35) U/L ALT (4-35) U/L Alkaline Phosphatase (40-150) U/L C-Reactive Protein (0.5-1.0) mg/dL Total Protein (6.0-8.3) g/dL Albumin (3.3-5.0) g/dL Lipase (23-300) U/L Urine Color (Yellow) Urine Appearance (Clear) Urine pH (5.0-8.5) Ur Specific [place] (1.000-1.030) Urine Protein (Negative) Urine Glucose (UA) (Negative) Urine Ketones (Negative) Urine Blood (Negative) Urine Nitrite (Negative) Urine Bilirubin (Negative) Urine Urobilinogen (0.2-1.0) Ur Leukocyte Esterase (Negative) Urine RBC (0-2) Urine WBC (0-5) Ur Squamous Epith Cells (None-Few) Urine Bacteria (None) Urine Mucus (None) 05/12/23 05/12/23 05/12/23 Range/Units 08:15 08:15 08:15 WBC (4.50-11.00) K/uL RBC (4.00-5.20) m/uL Hgb (12.0-16.0) gm/dL Hct (33.0-51.0) % MCV (80-100) fL MCH (26-34) pg MCHC (32-36) gm/dL RDW Coeff of Larry (11.5-15.5) % Plt Count (140-440) K/uL Neut % (Auto) (42.0-72.0) % Lymph % (Auto) (20-44) % [place] % (Auto) (0.0-11.0) % Eos % (Auto) (0.0-7.0) % Baso % (Auto) (0.0-3.0) % Neut # (Auto) (1.7-7.0) K/uL Lymph # (Auto) (0.90-2.90) K/uL [place] # (Auto) (0.00-0.90) K/UL Eos # (Auto) (0.00-0.50) K/uL Baso # (Auto) (0.00-0.30) K/uL Abs Immat Gran (auto) (0.00-0.30) K/uL Imm/Tot Granulo (auto) % Sodium Potassium Chloride Carbon Dioxide Anion Gap 9 BUN Cancelled 11 Creatinine Cancelled 0.6 Estimated Creat Clear Cancelled Estimated GFR Glucose Calcium Total Bilirubin (0.1-1.5) mg/dL Direct Bilirubin (0.0-0.5) mg/dL AST (12-35) U/L ALT (4-35) U/L Alkaline Phosphatase (40-150) U/L C-Reactive Protein (0.5-1.0) mg/dL Total Protein (6.0-8.3) g/dL Albumin (3.3-5.0) g/dL Lipase (23-300) U/L Urine Color (Yellow) Urine Appearance (Clear) Urine pH (5.0-8.5) Ur Specific [place] (1.000-1.030) Urine Protein (Negative) Urine Glucose (UA) (Negative) Urine Ketones (Negative) Urine Blood (Negative) Urine Nitrite (Negative) Urine Bilirubin (Negative) Urine Urobilinogen (0.2-1.0) Ur Leukocyte Esterase (Negative) Urine RBC (0-2) Urine WBC (0-5) Ur Squamous Epith Cells (None-Few) Urine Bacteria (None) Urine Mucus (None) 05/12/23 05/12/23 05/12/23 Range/Units 08:15 08:15 08:15 WBC (4.50-11.00) K/uL RBC (4.00-5.20) m/uL Hgb (12.0-16.0) gm/dL Hct (33.0-51.0) % MCV (80-100) fL MCH (26-34) pg MCHC (32-36) gm/dL RDW Coeff of Larry (11.5-15.5) % Plt Count (140-440) K/uL Neut % (Auto) (42.0-72.0) % Lymph % (Auto) (20-44) % [place] % (Auto) (0.0-11.0) % Eos % (Auto) (0.0-7.0) % Baso % (Auto) (0.0-3.0) % Neut # (Auto) (1.7-7.0) K/uL Lymph # (Auto) (0.90-2.90) K/uL [place] # (Auto) (0.00-0.90) K/UL Eos # (Auto) (0.00-0.50) K/uL Baso # (Auto) (0.00-0.30) K/uL Abs Immat Gran (auto) (0.00-0.30) K/uL Imm/Tot Granulo (auto) % Sodium Potassium Chloride Carbon Dioxide Anion Gap BUN Creatinine Estimated Creat Clear 101.53 Estimated GFR Cancelled 118 Glucose Cancelled 104 Calcium Cancelled Total Bilirubin (0.1-1.5) mg/dL Direct Bilirubin (0.0-0.5) mg/dL AST (12-35) U/L ALT (4-35) U/L Alkaline Phosphatase (40-150) U/L C-Reactive Protein (0.5-1.0) mg/dL Total Protein (6.0-8.3) g/dL Albumin (3.3-5.0) g/dL Lipase (23-300) U/L Urine Color (Yellow) Urine Appearance (Clear) Urine pH (5.0-8.5) Ur Specific [place] (1.000-1.030) Urine Protein (Negative) Urine Glucose (UA) (Negative) Urine Ketones (Negative) Urine Blood (Negative) Urine Nitrite (Negative) Urine Bilirubin (Negative) Urine Urobilinogen (0.2-1.0) Ur Leukocyte Esterase (Negative) Urine RBC (0-2) Urine WBC (0-5) Ur Squamous Epith Cells (None-Few) Urine Bacteria (None) Urine Mucus (None) 05/12/23 Range/Units 08:15 WBC (4.50-11.00) K/uL RBC (4.00-5.20) m/uL Hgb (12.0-16.0) gm/dL Hct (33.0-51.0) % MCV (80-100) fL MCH (26-34) pg MCHC (32-36) gm/dL RDW Coeff of [place] (11.5-15.5) % Plt Count (140-440) K/uL Neut % (Auto) (42.0-72.0) % Lymph % (Auto) (20-44) % [place] % (Auto) (0.0-11.0) % Eos % (Auto) (0.0-7.0) % Baso % (Auto) (0.0-3.0) % Neut # (Auto) (1.7-7.0) K/uL Lymph # (Auto) (0.90-2.90) K/uL [place] # (Auto) (0.00-0.90) K/UL Eos # (Auto) (0.00-0.50) K/uL Baso # (Auto) (0.00-0.30) K/uL Abs Immat Gran (auto) (0.00-0.30) K/uL Imm/Tot Granulo (auto) % Sodium Potassium Chloride Carbon Dioxide Anion Gap BUN Creatinine Estimated Creat Clear Estimated GFR Glucose Calcium 9.2 Total Bilirubin 0.7 (0.1-1.5) mg/dL Direct Bilirubin 0.1 (0.0-0.5) mg/dL AST 22 (12-35) U/L ALT 17 (4-35) U/L Alkaline Phosphatase 66 (40-150) U/L C-Reactive Protein 0.7 (0.5-1.0) mg/dL Total Protein 7.6 (6.0-8.3) g/dL Albumin 4.6 (3.3-5.0) g/dL Lipase 101 (23-300) U/L Urine Color (Yellow) Urine Appearance (Clear) Urine pH (5.0-8.5) Ur Specific [place] (1.000-1.030) Urine Protein (Negative) Urine Glucose (UA) (Negative) Urine Ketones (Negative) Urine Blood (Negative) Urine Nitrite (Negative) Urine Bilirubin (Negative) Urine Urobilinogen (0.2-1.0) Ur Leukocyte Esterase (Negative) Urine RBC (0-2) Urine WBC (0-5) Ur Squamous Epith Cells (None-Few) Urine Bacteria (None) Urine Mucus (None) Discharge Plan Discharge Clinical Impression: Abdominal pain Patient Disposition: Home, Self-Care Condition: Stable Additional Instructions: Nothing specific was found as the reason for your abdominal pain today. Potential causes of discomfort include mild constipation, increased gas or muscle pain. Recommend you increase your daily fluid intake, can start taking daily MiraLax to see if this helps symptoms. Follow-up with your primary care provider as needed. Prescriptions: No Action valacyclovir 500 mg tablet 500 mg PO QDAY PRN qazorgfcwafw-Vu-jvqr-minerals Tablet 1 tab PO QDAY levonorgestrel 20 mcg/24 hours (7 yrs) 52 mg intrauterine device 1 device intrauterine ONCE Rx Instructions: as a single dose metoprolol succinate 25 mg tablet extended release 24 hr 50 mg PO QDAY Qty: 180 1RF Rx Instructions: 2 tablets daily for palpitations and Blood pressure Follow Up/Referrals: Malena Aguayo PA-C [Primary Care Provider] - Stand Alone Forms: [employer] Info Instructions
[2023-05-12 08:27] LABS: Mucus Urine Few
[2023-05-12 08:27] LABS: Slide Review Reflex No
--- OUTSIDE RECORDS SUMMARY | 2023-05-12 08:31 | XMS_ITS | Clinical Summary ---
Author Name Unknown Organization [facility] Address [place], [place] [address] Care Team Providers Care Dosimetrist Name Role Phone Malena Serrano PA-C Primary Care Provider Allergies No known active allergies Medications Medication Sig Dispensed Refills Start Date End Date Status metoprolol succinate (TOPROL XL) 25 mg Sustained-Release tablet TAKE ONE TABLET BY MOUTH DAILY for palpitations and blood pressure* 0 02/02/2023 Active Encounters Date Type Department Care Team Description 03/11/2023 2:00 PM ROTARY DERRICK OPERATOR Orders Only [facility] [place] [facility] [address] [place] [address] 2 scans: (2-Ord) ECHO TTE COMPLETE WO CONTRAST ([id number]) from Last 3 Months Social History Tobacco Use Types Packs/Day Years Used Date Smoking Tobacco: Never Smokeless Tobacco: Never Tobacco Cessation:Counseling Given: Not Answered Alcohol Use Standard Drinks/Week Comments Yes 3 (1 standard drink = 0.6 oz pur e alcohol) Social Connections Answer Date Recorded Frequency of Communication with Friends and Fami ly Not on file 04/16/2022 Sex and Gender Information Value Date Recorded Sex Assigned at Not on file Gender Identity Not on file Sexual Orientation Not on file Obstetrics History Last Filed Vital Signs Vital Sign Reading Time Taken Comments Blood Pressure 104/60 02/08/2023 12:46 PM ROTARY DERRICK OPERATOR Pulse 77 02/08/2023 12:46 PM ROTARY DERRICK OPERATOR Temperature - - Respiratory Rate - - Oxygen Saturation 98% 02/08/2023 12:46 PM ROTARY DERRICK OPERATOR Inhaled Oxygen Concentration - - Weight 79.8 kg (176 lb) 02/08/2023 12:46 PM ROTARY DERRICK OPERATOR Height 157.5 cm (5' 2) 02/08/2023 12:46 PM ROTARY DERRICK OPERATOR Body Mass Index 32.19 02/08/2023 12:46 PM ROTARY DERRICK OPERATOR Plan of Treatment Health Maintenance Due Date Last Done Comments COVID-19 vaccine series (#1) 02/19/1986 Tdap 1996 Depression screening for age 12+ 1997 HIV for age 15-65 2000 Hepatitis C screening for age 18-79 08/20/2003 Tetanus booster 2005 Pap test for age 21-65 05/15/2022 , 05/15/2019, 10/13/2017, Additional history exists Influenza for age 9-49 12/03/2022 BMI (ht and wt on same day) for age 18+ 02/09/2024 02/08/2023 Pneumococcal series for age 6-64 Aged Out No longer eligible based on patient's age to complete this topic Procedures Procedure Name Priority Date/Time Associated Diagnosis Comments ECHO TTE COMPLETE WO CONTRAST Routine 03/11/2023 2:39 PM ROTARY DERRICK OPERATOR Palpitations from Last 3 Months Results * ECHO TTE COMPLETE WO CONTRAST (03/11/2023 2:39 PM ROTARY DERRICK OPERATOR) AORTIC VALVE MEAN PG 3 mmHg EJECTION FRACTION 59 % PEAK TR VELOCITY 2.1 m/s LVEDD 4.9 cm EJECTION FRACTION 55 - 60% Anatomical Region Laterality Modality Ultrasound 03/11/2023 2:10 PM ROTARY DERRICK OPERATOR Narrative 03/11/2023 3:09 PM ROTARY DERRICK OPERATOR ECHOCARDIOGRAM PAUL FITCH ? Accession#: ?? [id number] : ?1985 37 years Study Date: ?? 03/11/2023 2:10:08 PM Gender: F ?BP: ? 118/77 mmHg Height: 157.00 cm ?BSA: ?1.81 m? ? ? Weight: 80.00 kg ? Tech: ? MCK ? Referring MD: MALENA SERRANO Site: ? [facility] Reading Location: Mobile-OP Patient Location: Outpatient. Procedure: 2D, Color Doppler and Spectral Doppler. Indication for study: Palpitations Cardiac Rhythm: Regular.Study quality: Fair. Final Impressions: 1. Normal LV size, normal wall thickness, normal function with an estimated EF of 55 - 60%. 2. Right ventricular cavity size is normal, global systolic RV function is normal. 3. No significant valve disease detected. Comparison There are no prior studies on this patient for comparison purposes. Chamber Sizes and Function Normal left ventricular size, normal wall thickness, normal global systolic function with an estimated EF of 55 - 60%. Left atrial size is normal. Left atrial pressure is normal. Right ventricular cavity size is normal, global systolic RV function is normal. RV wall thickness is normal. The right atrium is normal. Right atrial volume index is 14 ml/m? ? ?. Right atrial area is 13 cm? ? ?. The pulmonary artery is of normal size and origin. The sinus of Valsalva is normal sized. The ascending aorta is normal sized. Valves, RV Pressures and Diastolic Function The aortic valve is normal in structure and trileaflet, no stenosis and no regurgitation. The mitral valve is normal in structure, no mitral regurgitation. Normal diastolic function. The tricuspid valve is normal in structure. Tricuspid regurgitation is trace regurgitation. The tricuspid regurgitant velocity is 2.1 m/s, the estimated right ventricular systolic pressure is 17 mmHg plus right atrial pressure. The pulmonic valve is normal. Trace pulmonary regurgitation. Pulmonary veins show a normal flow pattern. Masses, Effusion, Shunts There is no pericardial effusion. The inferior vena cava is normal sized, respiratory size variation greater than 50%. No left to right shunting was detected by limited color flow Doppler interrogation of the interatrial septum. No masses or clots seen. MEASUREMENTS AND CALCULATIONS 2-D Measurements and LV Function: LVID (d) 4.9 cm LV FS% (2D) ?? 29 % LVID (s) 3.5 cm LVOT diameter 2.2 cm IVS (d) ??0.9 cm HR ?59 bpm LVPW (d) 1.0 cm LA Vol index ??14 ml/m2 Ao Sinus 2.9 cm RA Vol index ??14 ml/m2 Asc Ao ?? 2.8 cm RA area ? 13 cm? ? ? LA ? 3.1 cm RV Max 4C (d) 3.8 cm Diastology: Mitral ?Tissue Doppler E Peak 0.8 m/s ??e', Septum ? 0.09 m/s A Peak 0.7 m/s ??e', Lateral ?0.12 m/s E/A ?1.1 ?E/e' Average ?? 7.66 DT ? 261 msec Aortic Valve: Vmax ? 1.3 m/s ??JUAN DIEGO (V) ?? 3.22 cm? ? ? VTI ?0.27 m ?? JUAN DIEGO (I) ?? 2.77 cm? ? ? LVOT V max 1.0 m/s ??Max PG ?6 mmHg LVOT VTI ?? 0.19 m ?? Mean PG ?? 3 mmHg SV ? 76 ml ?Dim Index 0.70 SV index ?? 42 ml/m? ? ? CO ?4.5 l/min ?CI ?2.5 l/min/m? ? ? Mitral Valve: MVA ?2.9 cm? ? ? MV P 1/2 76 msec Tricuspid Valve and estimated PA pressures: TR Vmax 2.1 m/s TAPSE 2.8 cm TR maxG 17 mmHg . This study was interpreted by an [facility] accredited facility. CC: HIM (med records) [facility]. ??Final ?? Procedure Note Bobby Murphy MD - 03/11/2023 ECHOCARDIOGRAM PAUL FITCH : 1985 37 years Study Date: 03/11/2023 2:10:08 PM Gender: F BP: 118/77 mmHg Height: 157.00 cm BSA: 1.81 m? ? ? Weight: 80.00 kg Tech: [facility] Referring MD: MALENA SERRANO Site: [facility] Reading Location: Mobile-OP Patient Location: Outpatient. Procedure: 2D, Color Doppler and Spectral Doppler. Indication for study: Palpitations Cardiac Rhythm: Regular.Study quality: Fair. Final Impressions: 1. Normal LV size, normal wall thickness, normal function with anestimated EF of 55 - 60%. 2. Right ventricular cavity size is normal, global systolic RV functionis normal. 3. No significant valve disease detected. Comparison There are no prior studies on this patient for comparison purposes. Chamber Sizes and Function Normal left ventricular size, normal wall thickness, normal globalsystolic function with an estimated EF of 55 - 60%. Left atrial size isnormal. Left atrial pressure is normal. Right ventricular cavity size isnormal, global systolic RV function is normal. RV wall thickness isnormal. The right atrium is normal. Right atrial volume index is 14ml/m? ? ?. Right atrial area is 13 cm? ? ?. The pulmonary artery is of normalsize and origin. The sinus of Valsalva is normal sized. The ascendingaorta is normal sized. Valves, RV Pressures and Diastolic Function The aortic valve is normal in structure and trileaflet, no stenosis and noregurgitation. The mitral valve is normal in structure, no mitralregurgitation. Normal diastolic function. The tricuspid valve is normal instructure. Tricuspid regurgitation is trace regurgitation. The tricuspidregurgitant velocity is 2.1 m/s, the estimated right ventricular systolicpressure is 17 mmHg plus right atrial pressure. The pulmonic valve isnormal. Trace pulmonary regurgitation. Pulmonary veins show a normal flowpattern. Masses, Effusion, Shunts There is no pericardial effusion. The inferior vena cava is normal sized,respiratory size variation greater than 50%. No left to right shunting wasdetected by limited color flow Doppler interrogation of the interatrialseptum. No masses or clots seen. MEASUREMENTS AND CALCULATIONS 2-D Measurements and LV Function: LVID (d) 4.9 cm LV FS% (2D) 29 % LVID (s) 3.5 cm LVOT diameter 2.2 cm IVS (d) 0.9 cm HR 59 bpm LVPW (d) 1.0 cm LA Vol index 14 ml/m2 Ao Sinus 2.9 cm RA Vol index 14 ml/m2 Asc Ao 2.8 cm RA area 13 cm? ? ? LA 3.1 cm RV Max 4C (d) 3.8 cm Diastology: Mitral Tissue Doppler E Peak 0.8 m/s e', Septum 0.09 m/s A Peak 0.7 m/s e', Lateral 0.12 m/s E/A 1.1 E/e' Average 7.66 DT 261 msec Aortic Valve: Vmax 1.3 m/s JUAN DIEGO (V) 3.22 cm? ? ? VTI 0.27 m JUAN DIEGO (I) 2.77 cm? ? ? LVOT V max 1.0 m/s Max PG 6 mmHg LVOT VTI 0.19 m Mean PG 3 mmHg SV 76 ml Dim Index 0.70 SV index 42 ml/m? ? ? CO 4.5 l/min CI 2.5 l/min/m? ? ? Mitral Valve: MVA 2.9 cm? ? ? MV P 1/2 76 msec Tricuspid Valve and estimated PA pressures: TR Vmax 2.1 m/s TAPSE 2.8 cm TR maxG 17 mmHg . This study was interpreted by an [facility] accredited facility. CC: [facility] ([facility]) [facility]. Final Malena Serrano PA-C ECHO ORD from Last 3 Months Care Teams Dosimetrist Relationship Specialty Start Date End Date Malena Serrano PA-C [address] [place] [address] PCP - General Emergency Medicine 04/09/22
--- OUTSIDE RECORDS SUMMARY | 2023-05-12 08:31 | XMS_ITS | Data Portability ---
Author Name Unknown Address [address] [place] [address] Phone [phone] Organization [facility] Address [address] [place] [address] Care Team Providers Care Sales Account Coordinator Name Role Phone MARGUERITE GONZALEZ Primary Care Provider [phone] Assessment No assessment recorded. Plan of Treatment Reminders Order Date Submit Date Provider Last Modified By Organization Details Last Modified Time Details Appointments None recorded. Lab urinalysis , dipstick 2020 021 [email or web address] Not available 14:46:28 urinalysis , dipstick 2020 021 CLAUDE Not available 09:37:36 Referral None recorded. Procedures bladder scan (PROC) 2020 021 CLAUDE Not available 09:37:11 Surgeries None recorded. Imaging None recorded. Medication Orders tamsulosin 0.4 mg capsule 2020 021 INTERFACE [id number], [id number], [place], [address], 14:32:49 Patient TargetsNo targets recorded. Patient Instructions Encounter Date Encounter Id Patient Instructions Last Modified By Organization Details Last Modified Time 07/07/2020 [id number] doing well with tamsulosin, will continue on this until refills gone, rtc if still sx's at that point. [email or web address] Not available 07/07/2020 15:10:27 06/13/2020 [id number] will send urine for pathnostic, try tamsulosin for the urethral sx's.plan recheck in one month/ with CT urogram [email or web address] Not available 06/13/2020 14:35:06 Reason for Referral None Reported. Results Created Date Observation Date Name Description Value Unit Range Abnormal Flag LastModifiedBy Organization Detail LastModifiedTime 07/08/19 21 07/07/2020 urina lysis , dipst ick Color-Status Yellow Not Available [facility] [address], [place], [address], 07/07/2020 14:45:09 07/08/19 21 07/07/2020 urina lysis , dipst ick Glucose-Stat us Negati ve Not Available [facility] [address], [place], [address], 07/07/2020 14:45:09 07/08/19 21 07/07/2020 urina lysis , dipst ick Bilirubin-St atus Negati ve Not Available [facility] [address], [place], [address], 07/07/2020 14:45:09 07/08/19 21 07/07/2020 urina lysis , dipst ick Ketones-Stat us Negati ve Not Available [facility] [address], [place], [address], 07/07/2020 14:45:09 07/08/19 21 07/07/2020 urina lysis , dipst ick Nitrates-Sta tus negati ve Not Available [facility] [address], [place], [address], 07/07/2020 14:45:09 07/08/19 21 07/07/2020 urina lysis , dipst ick Blood-Status Modera te Not Available [facility] [address], [place], [address], 07/07/2020 14:45:09 07/08/19 21 07/07/2020 urina lysis , dipst ick Leuko-Status Negati ve Not Available [facility] [address], [place], [address], 07/07/2020 14:45:09 06/18/19 21 06/13/2020 bladd er scan (PROC ) No observ ation record ed. BARCODE Not Available 06/17/2020 10:21:32 07/08/19 21 07/07/2020 bladd er scan (PROC ) No observ ation record ed. BARCODE Not Available 07/07/2020 17:56:51 07/09/19 21 07/07/2020 bladd er scan (PROC ) No observ ation record ed. BARCODE Not Available 07/08/2020 14:28:33 07/10/19 21 07/07/2020 CT, urogr am No observ ation record ed. [email or web address] Not Available 07/09/2020 16:07:42 Result Notes None recorded. Procedures Surgical History Date Name Laterality Status Provider Name and Address Organization Details Recorded Time Bladder Scan completed [facility] 07/07/2020 14:45:03 Imaging Results Imaging Date Name Status LastModified by Organiz ation Details LastModified Time 06/13/2020 bladder scan (PROC) completed BARCODE Information not available 06/17/2020 10:21:32 07/07/2020 bladder scan (PROC) completed BARCODE Information not available 07/07/2020 17:56:51 07/07/2020 bladder scan (PROC) completed BARCODE Information not available 07/08/2020 14:28:33 07/07/2020 CT, urogram completed [email or web address] Information n ot available 07/09/2020 16:07:42 Procedure Notes None recorded. Medical Equipment None Reported. Allergies No known drug allergies Medications Name Sig Start Date Stop Date Status Note LastModified by Organization Details LastModified Time fluconazole 100 mg tablet TAKE 1 TABLET BY MOUTH DAILY. 07/07 completed Not Available Not Available Not Available cefuroxime axetil 250 mg tablet TAKE ONE TABLET BY MOUTH TWICE DAILY active Not Available Not Available No t Available azithromyci n 250 mg tablet TAKE 2 TABLETS BY MOUTH ON DAY 1, THEN TAKE 1 TABLET ONCE DAILY ON DAYS 2 THROUGH 5 active Not Available Not Available No t Available fluconazole 150 mg tablet TAKE 1 TABLET BY MOUTH, MAY REPEAT IN 3-4 DAYS active Not Available Not Available No t Available sucralfate 1 gram tablet take 1 tablet by mouth 4 times daily active Not Available Not Available No t Available phenazopyri dine 200 mg tablet TAKE ONE TABLET BY MOUTH TWICE DAILY 07/07 completed Not Available Not Available Not Available metronidazo le 0.75 % (37.5 mg/5 gram) vaginal gel Insert 1 applicato rful vaginally at bedtime for 5 nights. active Not Available Not Available No t Available prednisone 20 mg tablet TAKE ONE TABLET BY MOUTH TWICE DAILY active Not Available Not Available No t Available clobetasol 0.05 % topical cream APPLY SMALL AMOUNT TOPICALLY TO AFFECTED AREA TWICE DAILY FOR 2 WEEKS NEEDED. active Not Available Not Available No t Available valacyclovi r 500 mg tablet TAKE 1 TABLET BY MOUTH TWICE DAILY active Not Available Not Available No t Available triamcinolo ne acetonide 0.1 % topical cream APPLY TO AFFECTED AREA(S) TOPICALLY TWICE A DAY active Not Available Not Available No t Available terbinafine HCl 250 mg tablet TAKE ONE TABLET BY MOUTH DAILY 07/07 completed Not Available Not Available Not Available amoxicillin 875 mg tablet TAKE ONE TABLET BY MOUTH TWICE DAILY active Not Available Not Available No t Available amitriptyli ne 25 mg tablet TAKE ONE TABLET BY MOUTH AT BEDTIME active Not Available Not Available No t Available tamsulosin 0.4 mg capsule TAKE ONE CAPSULE BY MOUTH DAILY active Not Available Not Available No t Available doxycycline monohydrate 100 mg capsule TAKE 1 CAPSULE BY MOUTH TWICE DAILY FOR 14 DAYS 07/07 completed Not Available Not Available Not Available oseltamivir 75 mg capsule TAKE 1 CAPSULE BY MOUTH TWICE DAILY FOR 5 DAYS active Not Available Not Available No t Available levofloxaci n 500 mg tablet TAKE 1 TABLET BY MOUTH DAILY for 7 days 07/07 completed Not Available Not Available Not Available hydrocortis one 2.5 % topical ointment APPLY TO AFFECTED AREA(S) topically twice daily 07/07 completed Not Available Not Available Not Available fluticasone propionate 50 mcg/actuati on nasal spray,suspe nsion instill 2 SPRAYs into EACH NOSTR DAILY active Not Available Not Available No t Available azithromyci n 500 mg tablet TAKE 2 TABLETS BY MOUTH DAILY 07/07 completed Not Available Not Available Not Available nitrofurant oin monohydrate /macrocryst als 100 mg capsule TAKE ONE CAPSULE BY MOUTH TWICE DAILY 07/07 completed Not Available Not Available Not Available Vitals Date Recorded Body height Body mass index (BMI) Body weight Provider Name and Address Organization Details Last Updated DateTime 06/13/2020 157.48 cm 31.1 kg/m2 86476.7 g [facility] 06/13/2020 14:02:26 Date Recorded Body height Body mass index (BMI) Body weight Provider Name and Address Organization Details Last Updated DateTime 07/07/2020 157.48 cm 31.1 kg/m2 89787.7 g Margarito Phelps [facility] 07/07/2020 14:35:32 Social History Question Answer Notes LastModified by Organizat ion Details LastModified Time Tobacco Smoking Status Never Smoker [facility] 06/13/2020 14:03:50 What Is Your Level Of Alcohol Consumption? None [email or web address] Information not available 06/13/2020 What Is Your Level Of Caffeine Consumption? None Information not available 06/13/2020 How Much Tobacco Do You Chew? None [email or web address] Information not available 07/07/2020 Recreational Drug Use No Information not available 06/13/2020 Marital Status Single [email or web address] Informatio n not available 06/13/2020 What Was The Date Of Your Most Recent Tobacco Screening? 06/13/2020 [email or web address] Information not available 06/13/2020 Are You Sexually Active? No Information not available 06/13/2020 Sex: Female Functional Status None recorded. Mental Status None recorded. Family History Relationship Description Onset Age of this Age Resolved Age Notes Father No current problems or disability Mother No current problems or disability Medical History Condition Response Sexually Transmitted Infection N Diabetes N Other N Bleeding Disorder N High Blood Pressure N Kidney Stones N High Cholesterol N GERD/Acid Reflux N Heart Disease N Cancer N Lung Disease N Depression N Gynecological History Statement/Question Response Irregular periods N Leaking urine with intercourse N Hormone Therapy N Heavy periods N Pain with intercourse N Sexually Active? N Obstetrics History GPAL:G 3 P 0 0 0 3 Type Value Living 3 Total 3 Past Encounters Encounter ID Performer Location Encounter Start Date Encounter Closed Date Diagnosis/Indication [id number] Sebastián Clayton MD [facility] [address] [place] [address] 06/13/2020 13:45:12 06/16/2020 09:45:32 Microscopic hematuria Recurrent urinary tract infection Urinary tract infectious disease [id number] Sebastián Clayton MD [facility] [address] [place] [address] 07/07/2020 14:22:53 07/08/2020 14:53:32 Recurrent urinary tract infection Polypoid urethritis Health Concerns Section Related Observation LastModified by Organization Detai ls LastModified Time None Recorded Concern Status LastModified by Organization Details LastModified Time None Recorded Advance Directives Directive None Recorded Payers Encounter Date Sequence Insurance Name Policy Number Policy Rojas Covered Member ID Rojas Member ID Guarantor Name 07/07/2020 1 [facility] (MEDICAID REPLACEMENT - HMO) [facility] Hanna L Leubner [id number] Hanna L Leubner 06/13/2020 1 [facility] (MEDICAID REPLACEMENT - HMO) [facility] Hanna L Leubner [id number] Hanna L Leubner Notes Date Note Type Note Provider Name and Address Organization Details Recorded Time 06/13/2020 text/html HPI Notes: sent for eval of microhematuria, UTI, UTI like sx's, recently finished doxycycline and sx's persisting so started amitriptylline and that has helped some. still felling lot of urethral discomfort, post void cramping. . PVR 24ml today. had CT last fall with no stones/obstruction. mom has kidney stones. Sebastián Clayton MD [address], [place], [address], [facility] 06/13/2020 15:37:29 07/07/2020 text/html HPI Notes: follo w up UTI and urethritis. taking tamsulosin and tolerates it well, helping a lot with her voiding sx's. Had CT urogram today. looks OK on first view, will review formal read when available. Sebastián Clayton MD [address] [place] [address],[address], [place], [address], [facility] 07/07/2020 15:10:50 OBGyn Episode No OBEpisode recorded.
[2023-05-12 08:50] LABS: Albumin* 4.6 g/dL (3.3-5.0); Chloride* 107 mmol/L (96-114); Sodium* 141 mmol/L (135-149)
[2023-05-12 08:51] LABS: Potassium* 4.3 mmol/L (3.6-5.1)
[2023-05-12 08:52] LABS: Creatinine* 0.6 mg/dL (0.5-1.5); Est. Creatinine Clearance* 101.53; Estimated Glomerular Filt Rate 118 ml/min
[2023-05-12 08:53] LABS: Alkaline Phosphatase* 66 U/L (40-150); Anion Gap 9 mEq/L (7-15); Aspartate Amino Transferase* 22 U/L (12-35); Bilirubin Direct* 0.1 mg/dL (0.0-0.5); Bilirubin Total* 0.7 mg/dL (0.1-1.5); Blood Urea Nitrogen* 11 mg/dL (5-24); Calcium* 9.2 mg/dL (8.4-10.6); Carbon Dioxide* 25 mmol/L (20-32); Glucose* 104 mg/dL (60-115); Lipase* 101 U/L (23-300); Total Protein* 7.6 g/dL (6.0-8.3)
[2023-05-12 08:54] LABS: Alanine Aminotransferase* 17 U/L (4-35)
[2023-05-12 08:56] LABS: C Reactive Protein* 0.7 mg/dL (0.5-1.0)
[2023-05-12 09:12] LABS: Ur HCG Qualitative* Negative (Negative)
== END 2023-05-12 09:15 | disposition home or self-care (01) ==
PROVIDERS: Emergency Provider Family Medicine; PCP Physician Assistant Medical
DX: R10.9 Unspecified abdominal pain (principal)
CPT/HCPCS: 36415; 80048; 80076; 81001; 81003; 81015; 81025; 83690; 85025; 86140; 87086; 99283; 99284

== ENCOUNTER 2023-09-10 00:51 | Emergency (ER) | payer BC, SELFPAY ==
[2023-09-10 00:57] VITALS: BP 145/84; PULSE 75; RESP 18; TEMP 36.7; O2SAT 99; BMI 32.0
--- NOTE | 2023-09-10 01:00 | ED_ITS ---
HPI - General Adult General Chief complaint: Chest Pain Stated complaint: Sharp shooting pain in chest Time Seen by Provider: 09/10/23 01:00 History of Present Illness HPI narrative: CC: Left Chest Pain pt. with left chests pain for over 1 week. worse tonight. some shortness of breath associated with it. denies n/ v, diarrhea, fevers. 38-year-old woman presenting to the emergency department with complaint of left- sided chest pain. Has been ongoing over the last week or so but escalating tonight. Feels a sense of shortness of breath with it. No rashes. No fevers. No cough. No trauma. Does not smoke. Related Data Home Medications ?Medication ?Instructions ?Recorded ?Confirmed levonorgestrel 21 mcg/24 hr (up to 1 device intrauterine ONCE 10/13/21 09/10/23 8 years) 52 mg intrauterine device guaygewvjpez-Oo-lykz-minerals 1 tab PO QDAY 10/13/21 09/10/23 valacyclovir 500 mg tablet 500 mg PO QDAY PRN 12/16/22 09/10/23 Previous Rx's ?Medication ?Instructions ?Recorded metoprolol succinate 25 mg 50 mg (2 x 25 mg) PO QDAY #180 tabs 04/11/23 tablet,extended release 24 hr Allergies Allergy/AdvReac Type Severity Reaction Status Date / Time No Known Allergies Allergy Unknown Verified 09/10/23 00:59 Review of Systems Status of ROS: Reports: 6 or more systems reviewed and unremarkable except as noted in History and below [facility] Medical History Normal echocardiogram (~03/11/23) 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 - Generalized skin eruption due to drugs and medicaments taken internally (ICD-10) History of supraventricular tachycardia ?Z86.79 - Personal history of other diseases of the circulatory system (ICD- 10) Surgical History History of colonoscopy ?Z98.890 - Other specified postprocedural states (ICD-10) Family History Mother Breast cancer Diabetes Maternal Grandmother Breast cancer Father Stroke Social History Narrative: does not use illicit drugs IUD (intrauterine device) in place nonsmoker Smoking Status: Never smoker Second hand tobacco smoke exposure: No How often do you have a drink containing alcohol: never AUDIT-C Alcohol total score: 0 Non-prescribed substance use: denies use Exam Narrative: Exam Narrative: Pleasant. NAD though appears a little worried. Skin is warm and dry. Mild erythema in area where she has been rubbing her chest. Having difficulty reproducing the pain exactly but is somewhat reproducibly sore on the chest wall. Worse when lying down? Heart in regular rate and rhythm. No murmur rub or gallop. Lungs are clear. Equal expansion excursion. There is no supraclavicular crepitus. Neck is supple. Const: Vital Signs, click to edit/add: Vital Signs - 24 hr 09/10/23 00:57 09/10/23 02:16 09/10/23 02:16 Temperature 98.0 F 98.0 F 98.0 F Pulse Rate [Right Pulse Oximeter] 75 79 79 Respiratory Rate 18 18 18 Blood Pressure [Ri t Upper Arm] 145/84 H 135/78 135/78 Pulse Oximetry 99 99 Oxygen Delivery Me thod Room Air Room Air Documenting provider has reviewed patient's vital signs: yes Course Vital Signs Vital signs: Initial Vital Signs Temperature 98.0 F 09/10/23 00:57 Temperature Source Temporal Artery Scan 09/10/23 00:57 Pulse Rate 75 09/10/23 00:57 Pulse Rhythm Regular 09/10/23 00:57 Pulse Strength 3+ Normal 09/10/23 00:57 Respiratory Rate 18 09/10/23 00:57 Blood Pressure 145/84 H 09/10/23 00:57 Blood Pressure Mean 104 09/10/23 00:57 Blood Pressure Position Sitting 09/10/23 00:57 Pulse Oximetry 99 09/10/23 00:57 Oxygen Delivery Method Room Air 09/10/23 00:57 Vital Signs Temperature 98.0 F 09/10/23 00:57 Pulse Rate 75 09/10/23 00:57 Respiratory Rate 18 09/10/23 00:57 Blood Pressure 145/84 H 09/10/23 00:57 Pulse Oximetry 99 09/10/23 00:57 Oxygen Delivery Method Room Air 09/10/23 00:57 Temperature 98.0 F 09/10/23 02:16 Pulse Rate 79 09/10/23 02:16 Respiratory Rate 18 09/10/23 02:16 Blood Pressure 135/78 09/10/23 02:16 Pulse Oximetry 99 09/10/23 02:16 Oxygen Delivery Method Room Air 09/10/23 02:16 Medications Administered Medications: Discontinued Medications Generic Name Dose Route Start Last Admin Trade Name Freq PRN Reason Stop Dose Admin Promethazine HCl 12.5 mg 09/10/23 01:03 09/10/23 01:13 Promethazine 25 Mg/Ml Inj IVP 09/10/23 01:04 Not Given ONCE ONE Medical Decision Making MDM Narrative Medical decision making narrative: Differential includes atypical angina, pneumothorax, costochondritis, discomfort referred from the back perhaps, pneumonia, atypical chest pain, pericarditis Chest x-ray reviewed by me looks unremarkable. Labs are reassuring. No evidence of pericarditis on EKG. See below. Unclear etiology discomfort. Overall well otherwise during time in the emergency department. Given the reproducibility, pleuritic somewhat in nature and may be palpable, this may be benefiting from some NSAIDs. See patient discharge plan for further discussion Lab Data Lab results reviewed: Yes I reviewed the patient's lab results Labs: Lab Results 09/10/23 Range/Units 01:15 WBC 10.88 (4.50-11.00) K/uL RBC 4.30 (4.00-5.20) m/uL Hgb 13.2 (12.0-16.0) gm/dL Hct 40.2 (33.0-51.0) % MCV 94 (80-100) fL MCH 31 (26-34) pg MCHC 33 (32-36) gm/dL RDW Coeff of Larry 12.1 (11.5-15.5) % Plt Count 320 (140-440) K/uL Neut % (Auto) 58.4 (42.0-72.0) % Lymph % (Auto) 31.0 (20-44) % Charlotte % (Auto) 8.2 (0.0-11.0) % Eos % (Auto) 1.7 (0.0-7.0) % Baso % (Auto) 0.3 (0.0-3.0) % Neut # (Auto) 6.37 (1.7-7.0) K/uL Lymph # (Auto) 3.37 H (0.90-2.90) K/uL Charlotte # (Auto) 0.90 (0.00-0.90) K/UL Eos # (Auto) 0.18 (0.00-0.50) K/uL Baso # (Auto) 0.03 (0.00-0.30) K/uL Abs Immat Gran (auto) 0.04 (0.00-0.30) K/uL Imm/Tot Granulo (auto) 0.4 % D-Dimer Quant (PE/DVT) 0.44 (0.00-0.50) ug/ml Sodium 139 (135-149) mmol/L Potassium 3.7 (3.6-5.1) mmol/L Chloride 104 (96-114) mmol/L Carbon Dioxide 28 (20-32) mmol/L Anion Gap 7 (7-15) mEq/L BUN 18 (5-24) mg/dL Creatinine 0.7 (0.5-1.5) mg/dL Estimated Creat Clear 86.18 Estimated GFR 113 ml/min Glucose 89 (60-115) mg/dL Calcium 8.7 (8.4-10.6) mg/dL C-Reactive Protein < 0.5 L (0.5-1.0) mg/dL ECG Data Attestation: I personally reviewed and interpreted this ECG as follows: (Normal sinus rhythm at a rate of 69. No ischemic changes ) Discharge Plan Discharge Clinical Impression: Atypical chest pain Patient Disposition: Home w/ Parent or Adult Condition: Stable Additional Instructions: Just to say that this does not appear to be cardiac. Everything is reassuring in the testing particularly in that regard. Stay well-hydrated Consider taking 400-600 mg of ibuprofen 3 times daily over the next 4-5 days or maybe 375 mg of naproxen 2 times daily over the next 5 days. Return for marked increase in pain, particularly accompanied by shortness of breath, nausea. Prescriptions: No Action valacyclovir 500 mg tablet 500 mg PO QDAY PRN mmijpgmvjgcg-Yz-udle-minerals Tablet 1 tab PO QDAY levonorgestrel 20 mcg/24 hours (7 yrs) 52 mg intrauterine device 1 device intrauterine ONCE Rx Instructions: as a single dose metoprolol succinate 25 mg tablet extended release 24 hr 50 mg PO QDAY Qty: 180 1RF Rx Instructions: 2 tablets daily for palpitations and Blood pressure Follow Up/Referrals: Malena Aguayo PA-C [Primary Care Provider] - Stand Alone Forms: [employer] Info Instructions
--- NOTE | 2023-09-10 01:09 | CRLHL7_ITS ---
For Patients: As a result of the Century Cures Act, medical imaging exams and procedure reports are released immediately into your electronic medical record. You may view this report before your referring provider. If you have questions, please contact your health care provider. INDICATION: Chest pain. TECHNIQUE: Chest 1 view. COMPARISON: None. FINDINGS: Cardiovascular and mediastinum: Heart size and vasculature are normal in caliber and appearance. Lungs and pleural spaces: Lungs are clear. No sign of infiltrate or mass. No sign of pleural effusion. No pneumothorax. Bones and soft tissues: Unremarkable for age. IMPRESSION: No evidence of an acute pulmonary process. Dictated by Rafy Ponce MD @ 09/10/2023 1:32:48 AM (Electronically Signed)
[2023-09-10 01:24] LABS: Basophils Absolute Auto 0.03 K/uL (0.00-0.30); Basophils Percent Auto 0.3 % (0.0-3.0); Eosinophils Absolute Auto 0.18 K/uL (0.00-0.50); Eosinophils Percent Auto 1.7 % (0.0-7.0); Hematocrit 40.2 % (33.0-51.0); Hemoglobin* 13.2 gm/dL (12.0-16.0); Immature Granulocytes Abs Auto 0.04 K/uL (0.00-0.30); Immature Granulocytes Pct Auto 0.4 %; Lymphocytes Absolute Auto 3.37 K/uL (0.90-2.90); Mean Corpuscular HGB Conc 33 gm/dL (32-36); Mean Corpuscular Hemoglobin 31 pg (26-34); Mean Corpuscular Volume 94 fL (80-100); Monocytes Percent Auto 8.2 % (0.0-11.0); Neutrophils Absolute Auto 6.37 K/uL (1.7-7.0); Neutrophils Percent Auto 58.4 % (42.0-72.0); Platelet Count* 320 K/uL (140-440); RDW Coefficient of Variation % 12.1 % (11.5-15.5); White Blood Count* 10.88 K/uL (4.50-11.00)
[2023-09-10 01:28] LABS: Slide Review Reflex No
--- OUTSIDE RECORDS SUMMARY | 2023-09-10 01:33 | XMS_ITS | Clinical Summary ---
Author Organization [facility] Address [place], [place] [address] Care Team Providers Care Social Work Msw Name Role Phone Malena Aguayo PA-C Primary Care Provider [phone] Allergies No known active allergies Medications Medication Sig Dispensed Refills Start Date End Date Status metoprolol succinate (TOPROL XL) 25 mg Sustained-Release tablet TAKE ONE TABLET BY MOUTH DAILY for palpitations and blood pressure* 02/02/2023 Active Social History Tobacco Use Types Packs/Day Years [...] Comments Blood Pressure 104/60 02/08/2023 12:46 PM PREPARATION SUPERVISOR Pulse 77 02/08/2023 12:46 PM PREPARATION SUPERVISOR Temperature - - Respiratory Rate - - Oxygen Saturation 98% 02/08/2023 12:46 PM PREPARATION SUPERVISOR Inhaled Oxygen Concentration - - Weight 79.8 kg (176 lb) 02/08/2023 12:46 PM PREPARATION SUPERVISOR Height 157.5 cm (5' 2) 02/08/2023 12:46 PM PREPARATION SUPERVISOR Body Mass Index 32.19 02/08/2023 12:46 PM PREPARATION SUPERVISOR Plan of Treatment Health Maintenance Due Date Last Done Comments Tdap 1996 Depression screening for age 12+ 1997 HIV for age 15-65 2000 Hepatitis C screening for age 18-79 08/20/2003 Tetanus booster 2005 Pap test for age 21-65 05/15/2022 0, 05/15/2019, 10/13/2017, Additional history exists COVID-19 vaccine series ( season) 2022 Influenza for age 9-49 12/04/2023 BMI (ht and wt on same day) for age 18+ 02/09/2024 02/08/2023 Pneumococcal series for age 6-64 Aged Out No longer eligible based on patient's age to complete this topic Procedures Procedure Name Priority Date/Time Associated Diagnosis Comments BAG MACHINE TENDER THIN PREP PAP SCREEN IMAGED Routine 05/15/2019 3:00 PM PREPARATION SUPERVISOR from Last 3 Months or Most Recently Relevant to Health Maintenance Results * BAG MACHINE TENDER THIN PREP PAP SCREEN IMAGED (05/15/2019 3:00 PM PREPARATION SUPERVISOR) Case Report Gynecologic Cytology Report ? Case: [id number] ? Authorizing Provider: ??Unknown, Doctor ?Collected: ? 05/15/2019 1500 ? Ordering Location: ? [facility] ?Received: ?05/16/2019 1638 ? First Screen: ?Cate Suarez ? Specimen: ?BAG MACHINE TENDER ThinPrep Vial Screening, Cervical/Vaginal ? 05/29/2019 12:38 PM [facility] INTERPRETATION/ RESULT NEGATIVE FOR INTRAEPITHELIAL LESION OR MALIGNANCY (NIL) (none) 05/29/2019 12:38 PM [facility] IMEN ADEQUACY Satisfactory for evaluation Endocervical component present Scant cellularity 05/29/2019 12:38 PM [facility] HPV REQUEST HPV and PAP 05/29/2019 12:38 PM [facility] Date of LMP 05/29/2019 12:38 PM [facility] Comment:unknown Last Pap Date 10/13/2017 05/29/2019 12:38 PM [facility] Last Pap Result NIL 0 12:38 PM [facility] Additional Information 05/29/2019 12:38 PM [facility] Comment: Interpreted at [facility], Central Laboratory - [address] [address] Automated Review Successful 05/29/2019 12:38 PM [facility] Comment:Specimen processed s uccessfully by automated rn er device, ThinPrep Imaging System, [employer] ANCILLARY TESTING BAG MACHINE TENDER HPV Ordered, Please see separate report 05/29/2019 12:38 PM [facility] Note The pap test is a screening technique, not a diagnostic procedure. It is used primarily to screen for squamous cancers and precursor lesions. Published studies have shown that it is subject to both false negative and false positive results. The pap test should not be used as the sole means to diagnose or exclude pre-malignant and malignant lesions. 05/29/2019 12:38 PM [facility] Other (Cervical/Vagina l) 05/15/2019 3:00 PM PREPARATION SUPERVISOR 05/16/2019 4:38 PM PREPARATION SUPERVISOR Doctor Unknown PATHOLOGY/CYTOLOGY [facility] [address] [place] [address], from Last 3 Months or Most Recently Relevant to Health Maintenance Care Teams Social Work Msw Relationship Specialty Start Date End Date Malena Aguayo PA-C [address] [place] [address] PCP - General Emergency Medicine 04/09/22
--- OUTSIDE RECORDS SUMMARY | 2023-09-10 01:33 | XMS_ITS | Data Portability ---
Author Organization [facility], [facility] Address [address] [place] [address] Care Team Providers Care Barrel Turner Name Role Phone MARGUERITE GONZALEZ Primary Care Provider [phone] Assessment No assessment recorded. Plan of Treatment [...] tamsulosin 0.4 mg capsule 2020 021 INTERFACE [id number], [id number], [place], [address], 14:32:49 Patient TargetsNo targets recorded. Patient Instructions Encounter Date Encounter Id Patient Instructions Last Modified By Organization Details Last Modified Time 07/07/2020 [id number] doing well with tamsulosin, will continue on this until refills gone, rtc if still sx's at that point. [email or web address] Not available 07/07/2020 15:10:27 06/13/2020 [id number] will send urine for pathnostic, try tamsulosin for the urethral sx's.plan recheck in one month/ with CT urogram [email or web address] Not available 06/13/2020 14:35:06 Reason for Referral None Reported. Results Created Date Observation Date Name Description Value Unit Range Abnormal Flag LastModifiedBy Organization Detail LastModifiedTime 07/08/19 21 07/07/2020 urina lysis , dipst ick Color-Status Yellow Not Available [facility] [address], [place], [address], 07/07/2020 14:45:09 07/08/19 21 07/07/2020 urina lysis , dipst ick Glucose-Stat us Negati ve Not Available [facility] [address], [place], [address], 07/07/2020 14:45:09 07/08/19 21 07/07/2020 urina lysis , dipst ick Bilirubin-St atus Negati ve Not Available [facility] [address], [place], [address], 07/07/2020 14:45:09 07/08/19 21 07/07/2020 urina lysis , dipst ick Ketones-Stat us Negati ve Not Available [facility] [address], [place], [address], 07/07/2020 14:45:09 07/08/19 21 07/07/2020 urina lysis , dipst ick Nitrates-Sta tus negati ve Not Available [facility] [address], [place], [address], 07/07/2020 14:45:09 07/08/19 21 07/07/2020 urina lysis , dipst ick Blood-Status Modera te Not Available [facility] [address], [place], [address], 07/07/2020 14:45:09 07/08/19 07/07/2020 urina lysis , dipst ick Leuko-Status Negati ve Not Available [facility] [address], [place], [address], 07/07/2020 14:45:09 06/18/19 21 06/13/2020 bladd er [...] [email or web address] am No observ ation record ed. Not Available 07/09/2020 16:07:42 Result Notes None recorded. Procedures Surgical History Date Name Laterality Status Provider Name and Address Organization Details Recorded Time Bladder Scan completed Lam Le[facility] 07/07/2020 14:45:03 Imaging Results Imaging Date Name Status LastModified by Organiz ation Details LastModified Time 06/13/2020 bladder scan (PROC) completed [facility] Information not available 06/17/2020 10:21:32 07/07/2020 bladder scan (PROC) completed [facility] Information not available 07/07/2020 17:56:51 07/07/2020 bladder scan (PROC) completed [facility] Information not available 07/08/2020 14:28:33 07/07/2020 CT, urogram completed [email or web address] Information n ot available 07/09/2020 16:07:42 Procedure [...] Updated DateTime 06/13/2020 157.48 cm 31.1 kg/m2 91549.7 g Alec Woo [facility] 06/13/2020 14:02:26 Date Recorded Body height Body mass index (BMI) Body weight Provider Name and Address Organization Details Last Updated DateTime 07/07/2020 157.48 cm 31.1 kg/m2 45963.7 g Margarito Phelps [facility] 07/07/2020 14:35:32 Social History Question Answer Notes LastModified by Organizat ion Details LastModified Time Tobacco Smoking Status [facility]oker [facility] 06/13/2020 14:03:50 What Is Your Level Of Alcohol Consumption? None [email or web address] Information not available 06/13/2020 What Is Your Level Of Caffeine Consumption? None [email or web address] Information not available 06/13/2020 How Much Tobacco Do You Chew? None [email or web address] Information not available 07/07/2020 Recreational Drug Use No Information not available 06/13/2020 Marital Status Single [email or web address] Informatio n not available 06/13/2020 What Was The Date Of Your Most Recent Tobacco Screening? 06/13/2020 [email or web address] Information not available 06/13/2020 Are You Sexually Active? No [email or web address] Information not available 06/13/2020 Sex: Female Functional Status None recorded. Mental Status None recorded. Family History Relationship Description Onset Age of this Age Resolved Age Notes Father No current problems or disability Mother No current problems or disability Medical History Condition Response Diabetes N Sexually Transmitted Infection N Other N Bleeding Disorder N High Blood Pressure N Kidney Stones N Cancer N Lung Disease N Depression N High Cholesterol N GERD/Acid Reflux N Heart Disease N Gynecological History Statement/Question Response Irregular periods N Leaking urine with intercourse N Hormone Therapy N Heavy periods N Pain with intercourse N Sexually Active? N Obstetrics History GPAL:G 3 P 0 0 0 3 Type Value Living 3 Total 3 Past Encounters Encounter ID Performer Location Encounter Start Date Encounter Closed Date Diagnosis/Indication Diagnosis SNOMED-CT Code [id number] MD GENET [facility] [address] [place] [address] 06/13/2020 13:45:12 06/16/2020 09:45:32 Microscopic hematuria Recurrent urinary tract infection Urinary tr act infectious disease [id number] MD GENET [facility] 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 [address] Health Concerns Section Related Observation LastModified by Organization Detai ls LastModified Time None Recorded Concern Status LastModified by Organization Details LastModified Time None Recorded Advance Directives Directive None Recorded Payers Encounter Date Sequence Insurance Name Policy Number Policy Rojas Covered Member ID Rojas Member ID Guarantor Name 07/07/2020 1 [facility] (MEDICAID REPLACEMENT - H[facility] Leub[facility] [id number] Hanna L Leubner 06/13/2020 1 [facility] (MEDICAID REPLACEMENT - HMO) [facility] Leub[facility] [id number] Hanna L Leubner Notes Date Note [...] has kidney stones. Sebastián Clayton MD [address], [place], [address], [facility] 06/13/2020 15:37:29 07/07/2020 text/html HPI Notes: follo w up UTI and urethritis. taking tamsulosin and tolerates it well, helping a lot with her voiding sx's. Had CT urogram today. looks OK on first view, will review formal read when available. Sebastián Clayton MD [address], [place], [address], [facility] 07/07/2020 15:10:50 OBGyn Episode No OBEpisode recorded.
[2023-09-10 01:37] LABS: Chloride* 104 mmol/L (96-114); Potassium* 3.7 mmol/L (3.6-5.1); Sodium* 139 mmol/L (135-149)
[2023-09-10 01:40] LABS: Creatinine* 0.7 mg/dL (0.5-1.5); Est. Creatinine Clearance* 86.18; Estimated Glomerular Filt Rate 113 ml/min
[2023-09-10 01:41] LABS: Anion Gap 7 mEq/L (7-15); Blood Urea Nitrogen* 18 mg/dL (5-24); Calcium* 8.7 mg/dL (8.4-10.6); Carbon Dioxide* 28 mmol/L (20-32); D Dimer Quantitative* 0.44 ug/ml (0.00-0.50); Glucose* 89 mg/dL (60-115)
[2023-09-10 01:44] LABS: C Reactive Protein* < 0.5 mg/dL (0.5-1.0)
[2023-09-10 02:16] VITALS: BP 135/78; PULSE 79; RESP 18; TEMP 36.7; O2SAT 99
== END 2023-09-10 02:17 | disposition home or self-care (01) ==
PROVIDERS: Emergency Provider Family Medicine; PCP Physician Assistant Medical
DX: R07.9 Chest pain, unspecified (principal)
CPT/HCPCS: 36415; 71045; 80048; 85025; 85379; 86140; 93005; 99284

== ENCOUNTER 2023-11-03 10:34 | Outpatient (CLI) | payer BC, SELFPAY ==
--- OUTSIDE RECORDS SUMMARY | 2023-11-03 10:36 | XMS_ITS | Clinical Summary ---
Author Organization [facility] Address [place], [place] [address] Care Team Providers Care Rn Telephonic Name Role Phone Malena Aguayo PA-C Primary Care Provider [phone] Allergies No known active allergies Medications Medication [...] Comments Blood Pressure 104/60 02/08/2023 12:46 PM NANOTECHNICIAN Pulse 77 02/08/2023 12:46 PM NANOTECHNICIAN Temperature - - Respiratory Rate - - Oxygen Saturation 98% 02/08/2023 12:46 PM NANOTECHNICIAN Inhaled Oxygen Concentration - - Weight 79.8 kg (176 lb) 02/08/2023 12:46 PM NANOTECHNICIAN Height 157.5 cm (5' 2) 02/08/2023 12:46 PM NANOTECHNICIAN Body Mass Index 32.19 02/08/2023 12:46 PM NANOTECHNICIAN Plan of Treatment Health Maintenance Due Date [...] Procedure Name Priority Date/Time Associated Diagnosis Comments CHIP SILO TENDER THIN PREP PAP SCREEN IMAGED Routine 05/15/2019 3:00 PM NANOTECHNICIAN from Last 3 Months or Most Recently Relevant to Health Maintenance Results * CHIP SILO TENDER THIN PREP PAP SCREEN IMAGED (05/15/2019 3:00 PM NANOTECHNICIAN) Case Report Gynecologic Cytology Report ? Case: [id number] ? Authorizing Provider: ??Unknown, Doctor ?Collected: ? 05/15/2019 1500 ? Ordering Location: ? [facility] ?Received: ?05/16/2019 1638 ? First Screen: ?Cate Suarez ? Specimen: ?CHIP SILO TENDER ThinPrep Vial Screening, Cervical/Vaginal ? 05/29/2019 12:38 PM [facility] INTERPRETATION/ RESULT NEGATIVE FOR INTRAEPITHELIAL LESION OR MALIGNANCY (NIL) (none) 05/29/2019 12:38 PM [facility] IMEN ADEQUACY Satisfactory for evaluation Endocervical component present Scant cellularity 05/29/2019 12:38 PM [facility] HPV REQUEST HPV and PAP 05/29/2019 12:38 PM [facility] Date of LMP 05/29/2019 12:38 PM [facility] Comment:unknown Last Pap Date 10/13/2017 05/29/2019 12:38 PM [facility] Last Pap Result NIL 0 12:38 PM [facility] Additional Information 05/29/2019 12:38 PM [facility] Comment: Interpreted at [facility], Central Laboratory - [address], [place] [address] Automated Review Successful 05/29/2019 12:38 PM [facility] Comment:Specimen processed s uccessfully by automated military logistics specialist device, ThinPrep Imaging System, [employer] ANCILLARY TESTING CHIP SILO TENDER HPV Ordered, Please see separate report 05/29/2019 12:38 PM [facility] Note The pap test is a screening technique, not a diagnostic procedure. It is used primarily to screen for squamous cancers and precursor lesions. Published studies have shown that it is subject to both false negative and false positive results. The pap test should not be used as the sole means to diagnose or exclude pre-malignant and malignant lesions. 05/29/2019 12:38 PM [facility] Other (Cervical/Vagina l) 05/15/2019 3:00 PM NANOTECHNICIAN 05/16/2019 4:38 PM NANOTECHNICIAN Doctor Unknown PATHOLOGY/CYTOLOGY [facility] [address] [place] [address], from Last 3 Months or Most Recently Relevant to Health Maintenance Care Teams Rn Telephonic Relationship Specialty Start Date End Date Malena Aguayo PA-C [address] [place] [address] PCP - General Emergency Medicine 04/09/22
--- OUTSIDE RECORDS SUMMARY | 2023-11-03 10:37 | XMS_ITS | Data Portability ---
Author Organization [facility], [facility] Address [address] [place] [address] Care Team Providers Care Stoker Erector Name Role Phone MARGUERITE GONZALEZ Primary Care Provider Assessment No assessment recorded. Plan of Treatment Reminders Order Date Submit Date Provider Last Modified By Organization Details Last Modified Time Details Appointments None recorded. Lab urinalysis , dipstick 2020 021 CLAUDE Not available 09:37:36 urinalysis , dipstick 2020 021 [email or web address] Not available 14:46:28 Referral None recorded. Procedures bladder scan (PROC) 2020 021 CLAUDE Not available 09:37:11 Surgeries None recorded. Imaging None recorded. Medication Orders tamsulosin 0.4 mg capsule 2020 021 INTERFACE [id number], [id number], [place], [address], 14:32:49 Patient TargetsNo targets recorded. Patient Instructions Encounter Date Encounter Id Patient Instructions Last Modified By Organization Details Last Modified Time 06/13/2020 [id number] will send urine for pathnostic, try tamsulosin for the urethral sx's.plan recheck in one month/ with CT urogram [email or web address] Not available 06/13/2020 14:35:06 07/07/2020 [id number] doing well with tamsulosin, will continue on this until refills gone, rtc if still sx's at that point. [email or web address] Not available 07/07/2020 15:10:27 Reason for Referral None Reported. Results Created Date Observation Date Name Description Value Unit Range Abnormal Flag LastModifiedBy Organization Detail LastModifiedTime 07/08/19 21 07/07/2020 urina lysis , dipst ick Color-Status Yellow Not Available [facility] [address], [place], [address], 07/07/2020 14:45:09 07/08/19 21 07/07/2020 urina lysis , dipst ick Glucose-Stat us Negati ve Not Available [facility] [address], [place], [address], 07/07/2020 14:45:09 07/08/19 21 07/07/2020 urina lysis , dipst ick Bilirubin-St atus Negati ve Not Available [facility] [address], [place], [address], 07/07/2020 14:45:09 07/08/19 21 07/07/2020 urina lysis , dipst ick Ketones-Stat us Negati ve Not Available [facility] [address], [place], [address], 07/07/2020 14:45:09 07/08/19 21 07/07/2020 urina lysis , dipst ick Nitrates-Sta tus negati ve Not Available [facility] [address], [place], [address], 07/07/2020 14:45:09 07/08/19 21 07/07/2020 urina lysis , dipst ick Blood-Status Modera te Not Available [facility] [address], [place], [address], 07/07/2020 14:45:09 07/08/19 07/07/2020 urina lysis , dipst ick Leuko-Status Negati ve Not Available [facility] [address], [place], [address], 07/07/2020 14:45:09 06/18/19 21 06/13/2020 bladd er [...] urogr am No observ ation record ed. [email or web address] Not Available 07/09/2020 16:07:42 Result Notes None recorded. Procedures Surgical History Date Name Laterality Status Provider Name and Address Organization Details Recorded Time Bladder Scan completed Lam Leal [facility] 07/07/2020 14:45:03 Imaging Results Imaging Date Name Status LastModified by Organiz ation Details LastModified Time 06/13/2020 bladder scan (PROC) completed BARCODE Information not available 06/17/2020 10:21:32 07/07/2020 bladder scan (PROC) completed BARCODE Information not available 07/07/2020 17:56:51 07/07/2020 bladder scan (PROC) completed BARCODE Information not available 07/08/2020 14:28:33 07/07/2020 CT, urogram completed [email or web address] Information n ot available 07/09/2020 16:07:42 Procedure [...] Updated DateTime 06/13/2020 157.48 cm 31.1 kg/m2 18356.7 g Alec Woo [facility] 06/13/2020 14:02:26 Date Recorded Body height Body mass index (BMI) Body weight Provider Name and Address Organization Details Last Updated DateTime 07/07/2020 157.48 cm 31.1 kg/m2 74368.7 g Margarito Phelps [facility] 07/07/2020 14:35:32 Social History Question Answer Notes LastModified by Organizat ion Details LastModified Time Tobacco Smoking Status [facility]2020 14:03:50 What Is Your Level Of Alcohol Consumption? None [email or web address] Information not available 06/13/2020 What Is Your Level Of Caffeine Consumption? None [email or web address] Information not available 06/13/2020 How Much Tobacco Do You Chew? None [email or web address] Information not available 07/07/2020 Recreational Drug Use No [email or web address] Information not available 06/13/2020 Marital Status Single [email or web address] Informatio n not available 06/13/2020 What Was The Date Of Your Most Recent Tobacco Screening? 06/13/2020 [email or web address] Information not available 06/13/2020 Are You Sexually Active? No [email or web address] Information not available 06/13/2020 Sex: Unknown Functional Status None recorded. Mental Status None [...] Encounter Closed Date Diagnosis/Indication Diagnosis SNOMED-CT Code [id number] MD GENET [facility] [address] [place] [id number] 06/13/2020 13:45:12 06/16/2020 09:45:32 Microscopic hematuria Recurrent urinary tract infection Urinary tr act infectious disease [id number] MD GENET [facility] 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 51186 Health Concerns Section Related Observation LastModified by Organization Detai ls LastModified Time None Recorded Concern Status LastModified by Organization Details LastModified Time None Recorded Advance Directives Directive None Recorded Payers Encounter Date Sequence Insurance Name Policy Number Policy Rojas Covered Member ID Rojas Member ID Guarantor Name 06/13/2020 1 [facility] (MEDICAID REPLACEMENT - H[facility]) [facility] Leubner [id number] Hanna L Leubner 07/07/2020 1 [facility] (MEDICAID REPLACEMENT - HMO) [facility] H[facility] L Leubner [id number] Hanna L Leubner Notes Date Note [...] has kidney stones. Sebastián Clayton MD [address], [place], [address], [facility] 06/13/2020 15:37:29 07/07/2020 text/html HPI Notes: follo w up UTI and urethritis. taking tamsulosin and tolerates it well, helping a lot with her voiding sx's. Had CT urogram today. looks OK on first view, will review formal read when available. Sebastián Clayton MD [address], [place], [address], [facility] 07/07/2020 15:10:50 OBGyn Episode No OBEpisode recorded.
[2023-11-03 23:08] LABS: Chlamydia DNA Amplified* NOT DETECTED (No Detected); GC DNA Amplified* NOT DETECTED (No Detected)
== END 2023-11-03 10:35 | disposition home or self-care (01) ==
LOC: LKVREF 10:35
PROVIDERS: PCP Physician Assistant Medical; Visit Provider Physician Assistant Medical
DX: Z00.00 Encounter for general adult medical examination without abnormal findings (principal); Z11.3 Encounter for screening for infections with a predominantly sexual mode of transmission
CPT/HCPCS: 87491; 87591

== ENCOUNTER 2023-11-24 10:36 | Outpatient (CLI) | payer BC, SELFPAY ==
--- OUTSIDE RECORDS SUMMARY | 2023-11-24 10:38 | XMS_ITS | Data Portability ---
Author Organization [facility], [facility] Address [address] [place] [address] Care Team Providers Care Dehairer Name Role Phone MARGUERITE GONZALEZ Primary Care Provider [phone] Assessment No assessment recorded. Plan of Treatment [...] tamsulosin 0.4 mg capsule 2020 021 INTERFACE [id number], [address], [place], [address], 14:32:49 Patient TargetsNo targets recorded. Patient Instructions Encounter Date Encounter Id Patient Instructions Last Modified By Organization Details Last Modified Time 06/13/2020 [id number] will send urine for pathnostic, try tamsulosin for the urethral sx's.plan recheck in one month/ with CT urogram [email or web address] Not available 06/13/2020 14:35:06 07/07/2020 [id number] doing well with tamsulosin, will continue on this until refills gone, rtc if still sx's at that point. [email or web address] Not available 07/07/2020 15:10:27 Reason for Referral None Reported. Results Created Date Observation Date Name Description Value Unit Range Abnormal Flag LastModifiedBy Organization Detail LastModifiedTime 07/08/19 21 07/07/2020 urina lysis , dipst ick Color-Status Yellow Not Available [facility] [address], [place], [address], 07/07/2020 14:45:09 07/08/19 21 07/07/2020 urina lysis , dipst ick Glucose-Stat us Negati ve Not Available [facility] [address], [place], [address], 07/07/2020 14:45:09 07/08/19 21 07/07/2020 urina lysis , dipst ick Bilirubin-St atus Negati ve Not Available [facility] [address], [place], [address], 07/07/2020 14:45:09 07/08/19 21 07/07/2020 urina lysis , dipst ick Ketones-Stat us Negati ve Not Available [facility] [address], [place], [address], 07/07/2020 14:45:09 07/08/19 21 07/07/2020 urina lysis , dipst ick Nitrates-Sta tus negati ve Not Available [facility] [address], [place], [address], 07/07/2020 14:45:09 07/08/19 21 07/07/2020 urina lysis , dipst ick Blood-Status Modera te Not Available [facility] [address], [place], [address], 07/07/2020 14:45:09 07/08/19 07/07/2020 urina lysis , dipst ick Leuko-Status Negati ve Not Available [facility] [address], [place], [address], 07/07/2020 14:45:09 06/18/19 21 06/13/2020 bladd er [...] Recorded Time Bladder Scan completed Lam Leal [facility] 07/07/2020 14:45:03 Imaging Results Imaging Date Name Status LastModified by Organiz ation Details LastModified Time 06/13/2020 bladder scan (PROC) completed [facility] Information not available 06/17/2020 10:21:32 07/07/2020 bladder scan (PROC) completed [facility] Information not available 07/07/2020 17:56:51 07/07/2020 bladder scan (PROC) completed [facility] Information not available 07/08/2020 14:28:33 07/07/2020 CT, urogram completed Information n ot available 07/09/2020 16:07:42 Procedure [...] Updated DateTime 06/13/2020 157.48 cm 31.1 kg/m2 12196.7 g Alec Woo [facility] 06/13/2020 14:02:26 Date Recorded Body height Body mass index (BMI) Body weight Provider Name and Address Organization Details Last Updated DateTime 07/07/2020 157.48 cm 31.1 kg/m2 84410.7 g Margarito Phelps [facility] 07/07/2020 14:35:32 Social History Question Answer Notes LastModified by Organizat ion Details LastModified Time Tobacco Smoking Status [facility]/13[facility]2020 14:03:50 What Is Your Level Of Alcohol Consumption? None [email or web address] Information not available 06/13/2020 What Is Your Level Of Caffeine Consumption? None [email or web address] Information not available 06/13/2020 How Much Tobacco Do You Chew? None [email or web address] Information not available 07/07/2020 Recreational Drug Use No [email or web address] Information not available 06/13/2020 Marital Status Single [email or web address] Informatio n not available 06/13/2020 What Was The Date Of Your Most Recent Tobacco Screening? 06/13/2020 [email or web address] Information not available 06/13/2020 Are You Sexually Active? No [email or web address] Information not available 06/13/2020 Sex: Unknown Functional Status None recorded. Mental Status None recorded. Family History Relationship Description Onset Age of this Age Resolved Age Notes Father No current problems or disability Mother No current problems or disability Medical History Condition Response Diabetes N Sexually Transmitted Infection N Bleeding Disorder N Other N High Blood Pressure N Kidney Stones [...] Encounter Closed Date Diagnosis/Indication Diagnosis SNOMED-CT Code [id number] MD GENET [facility] [address] [place] [address] 06/13/2020 13:45:12 06/16/2020 09:45:32 Microscopic hematuria Recurrent urinary tract infection Urinary tr act infectious disease [id number] MD GENET [facility] [address] [place] [address] 07/07/2020 14:22:53 07/08/2020 14:53:32 Recurrent urinary tract infection Polypoid urethritis 7071 40564 Health Concerns Section Related Observation LastModified by Organization Detai ls LastModified Time None Recorded Concern Status LastModified by Organization Details LastModified Time None Recorded Advance Directives Directive None Recorded Payers Encounter Date Sequence Insurance Name Policy Number Policy Rojas Covered Member ID Rojas Member ID Guarantor Name 06/13/2020 1 [facility] (MEDICAID REPLACEMENT - HMO) [facility] H[facility] L Leubner [id number] Hanna L Leubner 07/07/2020 1 [facility] (MEDICAID REPLACEMENT - HMO) [facility] Hanna L Leubner [id number] Hanna L Leubner Notes Date Note [...] has kidney stones. Sebastián Clayton MD [address], [place], [address], [facility] 06/13/2020 15:37:29 07/07/2020 text/html HPI Notes: follo w up UTI and urethritis. taking tamsulosin and tolerates it well, helping a lot with her voiding sx's. Had CT urogram today. looks OK on first view, will review formal read when available. Sebastián Clayton MD [address], [place], [address], [facility] 07/07/2020 15:10:50 OBGyn Episode No OBEpisode recorded.
--- OUTSIDE RECORDS SUMMARY | 2023-11-24 10:38 | XMS_ITS | Clinical Summary ---
Author Organization [facility] Address [place], [place] [address] Care Team Providers Care Door Captain Name Role Phone Malena Aguayo PA-C Primary Care Provider [phone] Allergies No known active allergies Medications Medication Sig Dispensed Refills Start Date End Date Status metoprolol succinate (TOPROL XL) 25 mg Sustained-Release tablet TAKE ONE TABLET BY MOUTH DAILY for palpitations and blood pressure* 02/02/2023 Active Encounters Date Type Department Care Team Description 11/03/2023 Lab Requisition [facility] [phone] Malena Aguayo PA-C from Last 3 Months Social History Tobacco [...] Comments Blood Pressure 104/60 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 Pulse 77 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 Temperature - - Respiratory Rate - - Oxygen Saturation 98% 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 Inhaled Oxygen Concentration - - Weight 79.8 kg (176 lb) 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 Height 157.5 cm (5' 2) 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 Body Mass Index 32.19 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 Plan of Treatment Health Maintenance Due Date Last Done Comments Tdap 1996 Depression screening for age 12+ 1997 HIV for age 15-65 2000 Hepatitis C screening for age 18-79 08/20/2003 Tetanus booster 2005 COVID-19 vaccine series ( season) 2022 Influenza for age 9-49 12/04/2023 BMI (ht and wt on same day) for age 18+ 02/09/2024 02/08/2023 Pap test for age 21-65 11/02/2026 , 11/03/2023, 05/15/2019, Additional history exists Pneumococcal series for age 6-64 Aged Out No longer eligible based on patient's age to complete this topic Procedures Procedure Name Priority Date/Time Associated Diagnosis Comments LAB TRACKING EVENT Routine 11/03/2023 10 :45 AM CDT COST CONSULTANT THIN PREP PAP SCREEN IMAGED Routine 11/03/2023 10:45 AM CDT HPV THIN PREP Routine 11/03/2023 10:45 AM CDT from Last 3 Months Results * LAB TRACKING EVENT (11/03/2023 10:45 AM CDT) Other (Other) Client Collect / Unknown 11/03/2023 10:45 AM CDT 11/03/2023 4:53 PM CDT Malena Aguayo PA-C LAB BILL ONLY [facility] [address] [place] [address], * (ABNORMAL) COST CONSULTANT THIN PREP PAP SCREEN IMAGED (11/03/2023 10:45 AM CDT) Case Report Gynecologic Cytology Report ? Case: [id number] ? Authorizing Provider: ??Malena Aguayo PA-C ?Collected: ? 11/03/2023 1045 ? Ordering Location: ? [facility] ?Received: ?11/04/2023 0954 ? First Screen: ?Tisha Birmingham ? Pathologist: ? Ruchi Marte ? MD Nica ? Specimen: ?COST CONSULTANT ThinPrep Vial Screening, Cervical ? 11/10/2023 4:44 PM CDT [facility] ENTRAL LABORATORY INTERPRETATION/ RESULT LOW GRADE SQUAMOUS INTRAEPITHELIAL LESION (LSIL)(A) (none) 11/10/2023 4:44 PM CDT [facility] IMEN ADEQUACY Satisfactory for evaluation Endocervical component present 11/10/2023 4:44 PM CDT [facility] HPV REQUEST HPV and PAP 11/10/2023 4:44 PM CDT [facility] Date of LMP 11/10/2023 4:44 PM CDT [facility] Comment:Unknown Last Pap Date 05/15/2019 11/10/2023 4:44 PM CDT [facility] Last Pap Result NIL 4:44 PM CDT [facility] Additional Information 11/10/2023 4:44 PM CDT [facility] Comment: Interpreted at [facility] - [address] [place] [id number] Automated Review Successful 11/10/2023 4:44 PM CDT [facility] Comment:Specimen processed s uccessfully by automated regional geodetic advisor device, ThinPrep Imaging System, [employer] ANCILLARY TESTING COST CONSULTANT HPV Ordered, Please see separate report 11/10/2023 4:44 PM CDT [facility] Note The pap test is a screening technique, not a diagnostic procedure. It is used primarily to screen for squamous cancers and precursor lesions. Published studies have shown that it is subject to both false negative and false positive results. The pap test should not be used as the sole means to diagnose or exclude pre-malignant and malignant lesions. 11/10/2023 4:44 PM CDT [facility] Other (Cervical) 11/03/2023 10:45 AM CDT 11/04/2023 9:54 AM CDT Malena Aguayo PA-C PATHOLOGY/CYTOLOGY [facility] [address] [place] [address], [place] * (ABNORMAL) HPV HIGH RISK (11/03/2023 10:45 AM CDT) TYPE 16 Negative Negative 11/07/2023 2:30 PM CDT [facility]ORAT[facility] TYPE 18 Negative Negative 11/07/2023 2:30 PM CDT [facility] OTHER HIGH RISK TYPES Positive(A) Negative 11/07/2023 2:30 PM CDT [facility] Other (Cervical) 11/03/2023 10:45 AM CDT 11/04/2023 9:54 AM CDT Narrative [facility] - 11/07/2023 2:30 PM CDT Specimen is positive for the DNA of any one of, or combination of, the following high risk HPV types: 31, 33, 35, 39, 45, 51, 52, 56, 58, 59, 66, 68. HPV types 16 and 18 DNA were undetectable or below the pre-set threshold. ? Methodology: Riki Lloyd 4800 HPV Test Malena Aguayo PA-C MICROBIOLOGY [facility] [address] [place] [address], [place] from Last 3 Months Care Teams Door Captain Relationship Specialty Start Date End Date Malena Aguayo PA-C [address] [place] [address] PCP - General Emergency Medicine 04/09/22
--- NOTE | 2023-11-24 11:42 | W.ANESCHARGE ---
Anesthesia Charges Start Date/Time Anesthesia Start Date: 11/24/23 Anesthesia Start Time: 11:10 Stop Date/Time Anesthesia Stop Date: 11/24/23 Anesthesia Stop Time: 11:54
--- NOTE | 2023-11-24 11:56 | W.ANESCHARGE ---
Anesthesia Charges Start Date/Time Anesthesia Start Date: 11/24/23 Anesthesia Start Time: 11:10 Stop Date/Time Anesthesia Stop Date: 11/24/23 Anesthesia Stop Time: 11:54
== END 2023-11-24 10:37 | disposition home or self-care (01) ==
LOC: OP CLINIC 10:37
PROVIDERS: PCP Physician Assistant Medical; Visit Provider Surgery
DX: K62.5 Hemorrhage of anus and rectum (principal); K63.5 Polyp of colon; K63.89 Other specified diseases of intestine; K64.8 Other hemorrhoids; K64.4 Residual hemorrhoidal skin tags
CPT/HCPCS: 00811; 45380; 45381; 45385; 88305; J2704

== ENCOUNTER 2023-11-26 17:05 | Emergency (ER) | payer BC, SELFPAY ==
[2023-11-26 17:11] VITALS: BP 127/91; PULSE 91; RESP 16; TEMP 36.1; O2SAT 98; BMI 32.0
--- NOTE | 2023-11-26 17:23 | ED_ITS ---
HPI - General Adult General Date Seen: 11/26/23 Chief complaint: GI Bleed Stated complaint: bleeding post colonoscopy Time Seen by Provider: 11/26/23 17:08 Source: patient, RN notes reviewed and old records reviewed Mode of arrival: ambulatory Limitations: no limitations History of Present Illness HPI narrative: Patient is a 38-year-old woman who is here noting bright red blood per rectum. She says she has had problems with rectal bleeding for a number of years, had a colonoscopy about 6 years ago and everything was normal so she has just put up with it since then. Recently the bleeding got more severe and she had another colonoscopy were polyps were found. These were removed, colonoscopy was done on November 23. Since then she has been having bowel movements with blood in the toilet. Yesterday she had 1 episode of just blood per rectum, otherwise it is been just with bowel movements. She had some bilateral abdominal pain which has resolved. She has not had fevers or vomiting. Denies anticoagulation. Related Data Home Medications ?Medication ?Instructions ?Recorded ?Confirmed levonorgestrel 21 mcg/24 hr (up to 1 device intrauterine ONCE 10/13/21 11/03/23 8 years) 52 mg intrauterine device bqjlgsxoukox-Mc-swfr-minerals 1 tab PO QDAY 10/13/21 11/03/23 Previous Rx's ?Medication ?Instructions ?Recorded metoprolol succinate 25 mg 50 mg (2 x 25 mg) PO QDAY #180 tabs 11/03/23 tablet,extended release 24 hr peg 3350-electrolytes 236 240 ml PO Q10M #4,000 mL 11/03/23 gram-22.74 gram-6.74 gram-5.86 gram solution (Golytely) valacyclovir 500 mg tablet 1,000 mg (2 x 500 mg) PO QDAY PRN 11/03/23 cold sores 5 days #30 tabs Allergies Allergy/AdvReac Type Severity Reaction Status Date / Time No Known Allergies Allergy Unknown Verified 11/03/23 10:12 Review of Systems Status of ROS: Reports: 10 or more systems reviewed and unremarkable except as noted in History and below 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 3 kids ( 21, 18. 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 does not use illicit drugs, recreational drugs IUD (intrauterine device) in place Never smoker Smoking Status: Never smoker Do you use any of these nicotine containing products: None Second hand tobacco smoke exposure: No How often do you have a drink containing alcohol: monthly or less AUDIT-C Alcohol total score: 1 Non-prescribed substance use: denies use Little interest or pleasure in doing things: several days Feeling down, depressed, or hopeless: not at all Exam Narrative: Exam Narrative: Vital signs as noted above. In general, an alert, well-appearing patient. Head: Normocephalic, atraumatic. Eyes: Pupils are equal reactive. Extraocular movements are full. Conjunctivae are normal. ENT: Mucous membranes are moist. Throat is normal. Neck: Supple without lymphadenopathy. Heart: Regular rate and rhythm. No murmur or rub. Lungs: Clear bilaterally. No increased work of breathing, crackles or wheezes. Abdomen: Soft and nontender. Extremities: Well perfused. No edema. No calf tenderness. Pulses intact. Neurologic: Patient is alert and oriented to person and place. Speech is fluent. Face is symmetric. Moves all extremities equally. Affect: Normal. Skin: Warm and dry. Well perfused. Const: Vital Signs, click to edit/add: Vital Signs - 24 hr 11/26/23 17:11 Temperature 97 F L Pulse Rate [Right Radial] 91 Respiratory Rate 16 Blood Pressure [Le ft Upper Arm] 127/91 H Pulse Oximetry 98 Oxygen Delivery Me thod Room Air Documenting provider has reviewed patient's vital signs: yes Course Course ED Course: Will check a hemoglobin, coags. Vital signs are normal, abdominal exam is benign. Discuss with General surgery following labs. Hemoglobin is 12.6, it was 13.2 last time it was checked at the beginning of September. Coags are normal. Care discussed with Dr. Norman, options of admission for observation and serial hemoglobins versus discharge home with outpatient follow-up discussed with patient. She would prefer to go home. Given normal vital signs and normal hemoglobin I certainly think that is reasonable, she did ask if there was anything we could use to slow the bleeding, and I think would be reasonable to try giving her TXA, discussed that it may not help sig nificantly but I do not think it will hurt. Will place an IV, give TXA 1000 mg. She has an appointment next week with Malena Aguayo, follow-up in clinic, would recommend repeat hemoglobin at that time. Certainly if she has a dramatic increase in bleeding or pain, return to the ER at any time. Vital Signs Vital signs: Initial Vital Signs Temperature 97 F L 11/26/23 17:11 Temperature Source Temporal Artery Scan 11/26/23 17:11 Pulse Rate 91 11/26/23 17:11 Pulse Rhythm Regular 11/26/23 17:11 Respiratory Rate 16 11/26/23 17:11 Blood Pressure 127/91 H 11/26/23 17:11 Blood Pressure Mean 103 11/26/23 17:11 Pulse Oximetry 98 11/26/23 17:11 Oxygen Delivery Method Room Air 11/26/23 17:11 Vital Signs Temperature 97 F L 11/26/23 17:11 Pulse Rate 91 11/26/23 17:11 Respiratory Rate 16 11/26/23 17:11 Blood Pressure 127/91 H 11/26/23 17:11 Pulse Oximetry 98 11/26/23 17:11 Oxygen Delivery Method Room Air 11/26/23 17:11 Temperature 97 F L 11/26/23 17:11 Pulse Rate 91 11/26/23 17:11 Respiratory Rate 16 11/26/23 17:11 Blood Pressure 127/91 H 11/26/23 17:11 Pulse Oximetry 98 11/26/23 17:11 Oxygen Delivery Method Room Air 11/26/23 17:11 Medications Administered Medications: Discontinued Medications Generic Name Dose Route Start Last Admin Trade Name Zoya PRN Reason Stop Dose Admin Tranexamic Acid 1,000 mg 11/26/23 18:20 11/26/23 18:40 Tranexamic Acid 100 Mg/Ml Inj IV 11/26/23 18:21 1,000 mg ONCE ONE Administration Medical Decision Making Lab Data Labs: Lab Results 11/26/23 Range/Units 17:55 WBC 8.98 (4.50-11.00) K/uL RBC 4.13 (4.00-5.20) m/uL Hgb 12.6 (12.0-16.0) gm/dL Hct 38.9 (33.0-51.0) % MCV 94 (80-100) fL MCH 31 (26-34) pg MCHC 32 (32-36) gm/dL RDW Coeff of Larry 12.5 (11.5-15.5) % Plt Count 312 (140-440) K/uL Neut % (Auto) 63.3 (42.0-72.0) % Lymph % (Auto) 28.2 (20-44) % Johnson % (Auto) 6.0 (0.0-11.0) % Eos % (Auto) 1.8 (0.0-7.0) % Baso % (Auto) 0.3 (0.0-3.0) % Neut # (Auto) 5.68 (1.7-7.0) K/uL Lymph # (Auto) 2.53 (0.90-2.90) K/uL Johnson # (Auto) 0.50 (0.00-0.90) K/UL Eos # (Auto) 0.16 (0.00-0.50) K/uL Baso # (Auto) 0.03 (0.00-0.30) K/uL Abs Immat Gran (auto) 0.04 (0.00-0.30) K/uL Imm/Tot Granulo (auto) 0.4 % INR 1.02 (0.91-1.10) APTT 33 (23-33) Seconds Discharge Plan Discharge Clinical Impression: BRBPR (bright red blood per rectum), Status post colonoscopy with polypectomy Patient Disposition: Home, Self-Care Condition: Stable Instructions: Gastrointestinal Bleeding (ED) Additional Instructions: If you have significant increase in bleeding at any time, significant abdominal pain, vomiting of blood fevers etcetera return to the emergency department. Otherwise follow-up in clinic as planned next week, repeat hemoglobin at that time. Prescriptions: No Action metoprolol succinate 25 mg tablet extended release 24 hr 50 mg PO QDAY Qty: 180 3RF Rx Instructions: 2 tablets daily for palpitations and Blood pressure peg 3350-electrolytes [Golytely] 236-22.74-6.74 -5.86 gram recon soln 240 ml PO Q10M Qty: 4000 0RF Rx Instructions: until fecal effluent is clear jfosrkvbhzuy-Th-ygpy-minerals Tablet 1 tab PO QDAY levonorgestrel 20 mcg/24 hours (7 yrs) 52 mg intrauterine device 1 device intrauterine ONCE Rx Instructions: as a single dose valacyclovir 500 mg tablet 1,000 mg PO QDAY PRN (Reason: cold sores ) 5 Days Qty: 30 3RF Rx Instructions: two tablets daily x 5 days for cold sores PRN ( QTY= enough for 3 outbreaks) Follow Up/Referrals: Malena Aguayo PA-C [Primary Care Provider] - Stand Alone Forms: [employer] Info Instructions
[2023-11-26 17:59] LABS: Basophils Absolute Auto 0.03 K/uL (0.00-0.30); Basophils Percent Auto 0.3 % (0.0-3.0); Eosinophils Absolute Auto 0.16 K/uL (0.00-0.50); Eosinophils Percent Auto 1.8 % (0.0-7.0); Hematocrit 38.9 % (33.0-51.0); Hemoglobin* 12.6 gm/dL (12.0-16.0); Immature Granulocytes Abs Auto 0.04 K/uL (0.00-0.30); Immature Granulocytes Pct Auto 0.4 %; Lymphocytes Absolute Auto 2.53 K/uL (0.90-2.90); Lymphocytes Percent Auto 28.2 % (20-44); Mean Corpuscular HGB Conc 32 gm/dL (32-36); Mean Corpuscular Hemoglobin 31 pg (26-34); Mean Corpuscular Volume 94 fL (80-100); Neutrophils Absolute Auto 5.68 K/uL (1.7-7.0); Neutrophils Percent Auto 63.3 % (42.0-72.0); Platelet Count* 312 K/uL (140-440); RDW Coefficient of Variation % 12.5 % (11.5-15.5); Red Blood Count 4.13 m/uL (4.00-5.20); White Blood Count* 8.98 K/uL (4.50-11.00)
[2023-11-26 18:01] LABS: Slide Review Reflex No
--- OUTSIDE RECORDS SUMMARY | 2023-11-26 18:04 | XMS_ITS | Data Portability ---
Author Organization [facility] [place] Address [address] [place] [address] Care Team Providers Care Admitting Officer Name Role Phone MARGUERITE GONZALEZ Primary Care [...] tamsulosin 0.4 mg capsule 2020 021 INTERFACE [id number], [address], [place], [address], 14:32:49 Patient TargetsNo targets recorded. Patient Instructions Encounter Date Encounter Id Patient Instructions Last Modified By Organization Details Last Modified Time 06/13/2020 [id number] will send urine for pathnostic, try tamsulosin for the urethral sx's.plan recheck in one month/ with CT urogram [email or web address] Not available 06/13/2020 14:35:06 07/07/2020 [id number] doing well with tamsulosin, will continue on this until refills gone, rtc if still sx's at that point. [email or web address] Not available 07/07/2020 15:10:27 Reason for Referral None Reported. Results Created Date Observation Date Name Description Value Unit Range Abnormal Flag LastModifiedBy Organization Detail LastModifiedTime 07/08/19 21 07/07/2020 urina lysis , dipst ick Color-Status Yellow Not Available [facility] [address], [place], [address], 07/07/2020 14:45:09 07/08/19 21 07/07/2020 urina lysis , dipst ick Glucose-Stat us Negati ve Not Available [facility] [address], [place], [address], 07/07/2020 14:45:09 07/08/19 21 07/07/2020 urina lysis , dipst ick Bilirubin-St atus Negati ve Not Available [facility] [address], [place], [address], 07/07/2020 14:45:09 07/08/19 21 07/07/2020 urina lysis , dipst ick Ketones-Stat us Negati ve Not Available [facility] [address], [place], [address], 07/07/2020 14:45:09 07/08/19 21 07/07/2020 urina lysis , dipst ick Nitrates-Sta tus negati ve Not Available [facility] [address], [place], [address], 07/07/2020 14:45:09 07/08/19 21 07/07/2020 urina lysis , dipst ick Blood-Status Modera te Not Available [facility] [address], [place], [address], 07/07/2020 14:45:09 07/08/19 07/07/2020 urina lysis , dipst ick Leuko-Status Negati ve Not Available [facility] [address], [place], [address], 07/07/2020 14:45:09 06/18/19 21 06/13/2020 bladd er [...] urogr am No observ ation record ed. [email or web address] Not Available 07/09/2020 16:07:42 Result Notes None recorded. Procedures Surgical History Date Name Laterality Status Provider Name and Address Organization Details Recorded Time Bladder Scan completed Lam Leal [facility] 07/07/2020 14:45:03 Imaging Results Imaging Date Name Status LastModified by Organiz ation Details LastModified Time 06/13/2020 bladder scan (PROC) completed [facility] Information not available 06/17/2020 10:21:32 07/07/2020 bladder scan (PROC) completed [facility] Information not available 07/07/2020 17:56:51 07/07/2020 bladder scan (PROC) completed [facility] Information not available 07/08/2020 14:28:33 07/07/2020 CT, urogram completed [email or web address] Information n ot available 07/09/2020 16:07:42 Procedure [...] Updated DateTime 06/13/2020 157.48 cm 31.1 kg/m2 96919.7 g Alec Woo [facility] 06/13/2020 14:02:26 Date Recorded Body height Body mass index (BMI) Body weight Provider Name and Address Organization Details Last Updated DateTime 07/07/2020 157.48 cm 31.1 kg/m2 55538.[address] [facility] 07/07/2020 14:35:32 Social History Question Answer Notes LastModified by Organizat ion Details LastModified Time Tobacco Smoking Status Never Smoker [facility] 06/13/2020 14:03:50 What Is Your Level Of Alcohol Consumption? None [email or web address] Information not available 06/13/2020 What Is Your Level Of Caffeine Consumption? None Information not available 06/13/2020 How Much Tobacco Do You Chew? None [email or web address] Information not available 07/07/2020 Recreational Drug Use No [email or web address] Information not available 06/13/2020 Marital Status Single [email or web address] Informatio n not available 06/13/2020 What Was The Date Of Your Most Recent Tobacco Screening? 06/13/2020 [email or web address] Information not available 06/13/2020 Are You Sexually Active? No [email or web address] Information not available 06/13/2020 Sex: Unknown Functional Status None recorded. Mental Status None recorded. Family History Relationship Description Onset Age of this Age Resolved Age Notes Father No current problems or disability Mother No current problems or disability Medical History Condition Response Other N High Blood Pressure N Kidney Stones N Lung Disease N Depression N GERD/Acid Reflux N Diabetes N Sexually Transmitted Infection N Bleeding Disorder N Cancer N High Cholesterol N Heart Disease N Gynecological History Statement/Question Response Irregular periods N Leaking urine with intercourse N Hormone Therapy N Heavy periods N Pain with intercourse N Sexually Active? N Obstetrics History GPAL:G 3 P 0 0 0 3 Type Value Living 3 Total 3 Past Encounters Encounter ID Performer Location Encounter Start Date Encounter Closed Date Diagnosis/Indication Diagnosis SNOMED-CT Code [id number] MD GENET [facility] [address] [place] [id number] 06/13/2020 13:45:12 06/16/2020 09:45:32 Microscopic hematuria Recurrent urinary tract infection Urinary tr act infectious disease [id number] MD GENET [facility] 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 Health Concerns Section Related Observation LastModified by Organization Detai ls LastModified Time None Recorded Concern Status LastModified by Organization Details LastModified Time None Recorded Advance Directives Directive None Recorded Payers Encounter Date Sequence Insurance Name Policy Number Policy Rojas Covered Member ID Rojas Member ID Guarantor Name 06/13/2020 1 [facility] (MEDICAID REPLACEMENT - HMO) [facility] Leub[facility] [id number] Hanna L Leubner 07/07/2020 1 [facility] (MEDICAID REPLACEMENT - HMO) [facility] H[facility] L Leubner [id number] Hanna L Leubner Notes Date Note [...] has kidney stones. Sebastián Clayton MD [address], [place], [address], [facility] 06/13/2020 15:37:29 07/07/2020 text/html HPI Notes: follo w up UTI and urethritis. taking tamsulosin and tolerates it well, helping a lot with her voiding sx's. Had CT urogram today. looks OK on first view, will review formal read when available. Sebastián Clayton MD [address], [place], [address], [facility] 07/07/2020 15:10:50 OBGyn Episode No OBEpisode recorded.
--- OUTSIDE RECORDS SUMMARY | 2023-11-26 18:04 | XMS_ITS | Clinical Summary ---
Author Organization [facility] Address [place], [place] [address] Care Team Providers Care Flap Curer Name Role Phone Malena Aguayo PA-C Primary Care Provider [phone] Allergies No known active allergies Medications Medication Sig Dispensed Refills Start Date End Date Status metoprolol succinate (TOPROL XL) 25 mg Sustained-Release tablet TAKE ONE TABLET BY MOUTH DAILY for palpitations and blood pressure* 02/02/2023 Active Encounters Date Type Department Care Team Description 11/24/2023 Lab Requisition [facility] [phone] Lucio Ariza MD 11/03/2023 Lab Requisition [facility] [phone] Malena Aguayo PA-C from Last 3 Months [...] Comments Blood Pressure 104/60 02/08/2023 12:46 PM PRESENTATION TEAM MEMBER Pulse 77 02/08/2023 12:46 PM PRESENTATION TEAM MEMBER Temperature - - Respiratory Rate - - Oxygen Saturation 98% 02/08/2023 12:46 PM PRESENTATION TEAM MEMBER Inhaled Oxygen Concentration - - Weight 79.8 kg (176 lb) 02/08/2023 12:46 PM PRESENTATION TEAM MEMBER Height 157.5 cm (5' 2) 02/08/2023 12:46 PM PRESENTATION TEAM MEMBER Body Mass Index 32.19 02/08/2023 12:46 PM PRESENTATION TEAM MEMBER Plan of Treatment Health Maintenance Due Date Last Done Comments Tdap 1996 Depression screening for age 12+ 1997 HIV for age 15-65 2000 Hepatitis C screening for age 18-79 08/20/2003 Tetanus booster 2005 COVID-19 vaccine series (2022-24 season) 2022 Influenza for age 9-49 12/04/2023 [...] EVENT Routine 11/03/2023 10 :45 AM CDT [employer]W [employer] THIN PREP PAP SCREEN IMAGED Routine 11/03/2023 10:45 AM CDT HPV THIN PREP Routine 11/03/2023 10:45 AM CDT from Last 3 Months Results * LAB TRACKING EVENT (11/03/2023 10:45 AM CDT) Other (Other) Client Collect / Unknown 11/03/2023 10:45 AM CDT 11/03/2023 4:53 PM CDT Malena Aguayo PA-C LAB BILL ONLY [facility] [address] [place] [address], * (ABNORMAL) HEBREW TEACHER THIN PREP PAP SCREEN IMAGED (11/03/2023 10:45 AM CDT) Case Report Gynecologic Cytology Report ? Case: [id number] ? Authorizing Provider: ??Malena Aguayo PA-C ?Collected: ? 11/03/2023 1045 ? Ordering Location: ? [facility] ?Received: ?11/04/2023 0954 ? First Screen: ?Tisha Birmingham ? Pathologist: ? Estuardo, Ruchi ? MD Nica ? Specimen: ?HEBREW TE[employer]ER ThinPrep Vial Screening, Cervical ? 11/10/2023 4:44 PM CDT [facility] INTERPRETATION/ RESULT LOW GRADE SQUAMOUS INTRAEPITHELIAL LESION (LSIL)(A) (none) 11/10/2023 4:44 PM CDT [facility] IMEN ADEQUACY Satisfactory for evaluation Endocervical component present 11/10/2023 4:44 PM CDT [facility] HPV REQUEST HPV and PAP 11/10/2023 4:44 PM CDT [facility] Date of LMP 11/10/2023 4:44 PM CDT [facility] Comment:Unknown Last Pap Date 05/15/2019 11/10/2023 4:44 PM CDT [facility] Last Pap Result NIL 4:44 PM CDT [facility] Additional Information 11/10/2023 4:44 PM CDT [facility] Comment: Interpreted at [facility] - [address] [facility] [address], [place] [address] Automated Review Successful 11/10/2023 4:44 PM CDT [facility] Comment:Specimen processed s uccessfully by automated director of collections device, ThinPrep Imaging System, [email or web address] ANCILLARY TESTING HEBREW TEACHER HPV Ordered, Please see separate report 11/10/2023 4:44 PM CDT [facility] Note The pap test is [...] and malignant lesions. 11/10/2023 4:44 PM CDT [facility] Other (Cervical) 11/03/2023 10:45 AM CDT 11/04/2023 9:54 AM CDT Malena Aguayo PA-C PATHOLOGY/CYTOLOGY [facility] [address] [place] [address], * (ABNORMAL) HPV HIGH RISK (11/03/2023 10:45 AM CDT) TYPE 16 Negative Negative 11/07/2023 2:30 PM CDT [facility] TYPE 18 Negative Negative 11/07/2023 2:30 PM CDT [facility] OTHER HIGH RISK TYPES Positive(A) Negative 11/07/2023 2:30 PM CDT [facility] Other (Cervical) 11/03/2023 10:45 AM CDT 11/04/2023 9:54 AM CDT Narrative [facility] - 11/07/2023 2:30 PM CDT Specimen is positive for the DNA of any one of, or combination of, the following high risk HPV types: 31, 33, 35, 39, 45, 51, 52, 56, 58, 59, 66, 68. HPV types 16 and 18 DNA were undetectable or below the pre-set threshold. ? Methodology: Riki Lloyd 4800 HPV Test Malena Aguayo PA-C MICROBIOLOGY [facility] [address] [place] [address], from Last 3 Months Care Teams Flap Curer Relationship Specialty Start Date End Date Malena Aguayo PA-C [address] [place] [address] PCP - General Emergency Medicine 04/09/22
[2023-11-26 18:16] LABS: INR 1.02 (0.91-1.10); Partial Thromboplastin Time* 33 Seconds (23-33)
[2023-11-26] MEDS: TRANEXAMIC ACID 100 MG/ML INJ 1000 MG IV (18:40)
== END 2023-11-26 18:55 | disposition home or self-care (01) ==
PROVIDERS: Emergency Provider Emergency Medicine; PCP Physician Assistant Medical
DX: K62.5 Hemorrhage of anus and rectum (principal); K91.840 Postprocedural hemorrhage of a digestive system organ or structure following a digestive system procedure
CPT/HCPCS: 36415; 85025; 85610; 85730; 96374; 99283; 99284

== ENCOUNTER 2023-12-20 07:20 | Outpatient (CLI) | payer BC, SELFPAY ==
--- OUTSIDE RECORDS SUMMARY | 2023-12-22 09:43 | XMS_ITS | Clinical Summary ---
Author Organization [facility] Address [place], [place] [address] Care Team Providers Care Web Production Manager Name Role Phone Malena Aguayo PA-C Primary Care Provider + [phone] Allergies No known active allergies Medications Medication Sig Dispensed Refills Start Date End Date Status metoprolol succinate (TOPROL XL) 25 mg Sustained-Release tablet TAKE ONE TABLET BY MOUTH DAILY for palpitations and blood pressure* 02/02/2023 Active lidocaine 5 % ointmentIndications :Anal fissure Apply to anal fissure 2-3 times per day as needed pain. 1 g 1 12/12/2023 Active Encounters Date Type Department Care Team Description 12/12/2023 2:45 PM CDT Office Visit [facility] [address] [place] [address] Lucio Ariza MD Consult (Hemorrhoids bleeding) 12/12/2023 Travel 12/01/2023 Telephone [facility] [address] [place] [address] Lucio Ariza MD Follow Up 12/01/2023 Lab Requisition [facility] [phone] Gabriella Duong MD 11/24/2023 Lab Requisition [facility] [phone] Lucio Ariza MD 11/03/2023 Lab Requisition [facility] [phone] Malena Aguayo PA-C from Last 3 Months [...] Sign Reading Time Taken Comments Blood Pressure 118/75 12/12/2023 2:53 PM CDT Pulse 92 12/12/2023 2:53 PM CDT Temperature - - Respiratory Rate - - Oxygen Saturation 98% 12/12/2023 2:53 PM CDT Inhaled Oxygen Concentration - - Weight 87.8 kg (193 lb 8 oz) 12/12/2023 2:53 PM CDT Height 157.5 cm (5' 2) 02/08/2023 12:46 PM HOME HEALTH REGISTERED NURSE Body Mass Index 35.39 02/08/2023 12:46 PM HOME HEALTH REGISTERED NURSE Plan of Treatment Health Maintenance Due Date Last Done Comments Tdap 1996 Depression screening for age 12+ 1997 HIV for age 15-65 2000 Hepatitis C screening for age 18-79 08/20/2003 Tetanus booster 2005 COVID-19 vaccine series (2022- season) 2023 Influenza for age 9-49 12/04/2023 BMI (ht and wt on same day) for age 18+ 02/09/2024 02/08/2023 Pap test for age 21-65 11/02/2026 , 11/03/2023, 05/15/2019, Additional history exists Pneumococcal series for age 6-64 Aged Out No longer eligible based on patient's age to complete this topic Procedures Procedure Name Priority Date/Time Associated Diagnosis Comments LAB TRACKING EVENT Routine 11/30/2023 1: 44 PM CDT PATH TISSUE EXAM Routine 11/30/2023 1:44 PM CDT LAB TRACKING EVENT Routine 11/24/2023 11 :25 AM CDT PATH TISSUE EXAM Routine 11/24/2023 11:2 5 AM CDT LAB TRACKING EVENT Routine 11/03/2023 10 :45 AM CDT GARMENT SEWER HAND THIN PREP PAP SCREEN IMAGED Routine 11/03/2023 10:45 AM CDT HPV HIGH RISK Routine 11/03/2023 10:45 AM CDT from Last 3 Months Results * LAB TRACKING EVENT (11/30/2023 1:44 PM CDT) Only the most recent of3 resultswithin the time period is included. Other (Other) Client Collect / Unknown 11/30/2023 1:44 PM CDT 12/01/2023 3:23 PM CDT Gabriella Duong MD LAB BILL ONLY [facility] [address] [place] [address], * PATH TISSUE EXAM (11/30/2023 1:44 PM CDT) Only the most recent of2 resultswithin the time period is included. Case Report Pathology Report ?Case: [id number] ? Authorizing Provider: ??Gabriella Duong MD ??Collected: ? 11/30/2023 1344 ? Ordering Location: ? [facility] ?Received: ?12/01/2023 1933 ? Pathologist: ? Isiah Benson MD ? Specimens: ?? A) - Cervical Biopsy, 5 o'clock ? B) - Cervical Biopsy, 7 o'clock ? C) - Cervical Biopsy, 12 o'clock ? D) - Endocervical Curettings ? 12/06/2023 3:47 PM CDT [facility] Final Diagnosis A) CERVIX, 5:00, BIOPSY: 1. Benign cervical mucosa ?? a. Sampling: Ectocervix and endocervix ?? b. Transformation zone: Present 2. Negative for glandular neoplasia, squamous intraepithelial lesion, and malignancy B) CERVIX, 7:00, BIOPSY: 1. Benign cervical mucosa ?? a. Sampling: Ectocervix and endocervix ?? b. Transformation zone: Present 2. Negative for glandular neoplasia, squamous intraepithelial lesion, and malignancy C) CERVIX, 12:00, BIOPSY: 1. Low grade squamous intraepithelial lesion (JUDY 1) ?? a. Sampling: Ectocervix and endocervix ?? b. Transformation zone: Present 2. Negative for high grade JUDY and invasive carcinoma D) ENDOCERVIX, CURETTAGE: 1. Fragments of benign endocervical and ectocervical tissues 2. Negative for glandular neoplasia, squamous intraepithelial lesion, and malignancy 12/06/2023 3:47 PM T [facility] [employer] [facility] Comment The patient's prior Pap test ( [id number];11/03/23) was diagnosed as low grade squamous intraepithelial lesion (LSIL). Concurrent HR-HPV testing was positive for HR-HPV other (non-16/18) subtype(s). The atypical cells seen on the prior cervical Pap test are explained by the current biopsy 12/06/2023 3:47 PM T [facility] Clinical Information History of low grade squamous intraepithelial lesion (LSIL) Pap, concurrent HPV testing positive, Non-16/18. 12/06/2023 3:47 PM T [facility] Gross Description A) Received in formalin, labeled with the patient's name and cervical biopsy at 5:00, is a single cornejo mucosal fragment measuring 0.6 cm. The specimen is submitted in toto in one cassette. B) Received in formalin, labeled with the patient's name and cervical biopsy at 7:00, is a single cornejo mucosal fragment measuring 0.6 cm. The specimen is submitted in toto in one cassette. C) Received in formalin, labeled with the patient's name and cervical biopsy at 12:00, is a single cornejo mucosal fragment measuring 0.6 cm. The specimen is submitted in toto in one cassette. D) Received in formalin, labeled with the patient's name and ECC, is a 3.0 x 1.5 x 0.2 cm aggregate of blood tinged mucous. The specimen is entirely submitted in one cassette. TLF 12/01/2023 12/06/2023 3:47 PM CDT [facility] [employer] [facility] Microscopic Description The final diagnosis is based on microscopic examination of appropriate sections of all specimens. 12/06/2023 3:47 PM CDT [facility] [employer] [facility] Additional Information Interpreted at [facility], Central Laboratory - [address] [address] 12/06/2023 3:47 PM CDT [facility] Other (Cervical Biopsy) 11/30/2023 1:44 PM CDT 12/01/2023 7:33 PM CDT Specimen (specimen) (Cervical Biopsy) 11/30/2023 1:45 PM CDT 12/01/2023 7:33 PM CDT Specimen (specimen) (Cervical Biopsy) 11/30/2023 1:46 PM CDT 12/01/2023 7:33 PM CDT Specimen (specimen) (Endocervical Curettings) 11/30/2023 1:47 PM CDT 12/01/2023 7:33 PM CDT Gabriella Duong MD PATHOLOGY/CYTOLO GY [facility] [address] [place] [address], * (ABNORMAL) GARMENT SEWER HAND THIN PREP PAP SCREEN IMAGED (11/03/2023 10:45 AM CDT) Case Report Gynecologic Cytology Report ? Case: [id number] ? Authorizing Provider: ??Malena Aguayo PA-C ?Collected: ? 11/03/2023 1045 ? Ordering Location: ? [facility] ?Received: ?11/04/2023 0954 ? First Screen: ?Tisha Birmingham ? Pathologist: ? Ruchi Marte ? MD Nica ? Specimen: ?GARMENT SEWER HAND ThinPrep Vial Screening, Cervical ? 11/10/2023 4:44 PM CDT [facility] INTERPRETATION/ RESULT LOW GRADE SQUAMOUS INTRAEPITHELIAL LESION (LSIL)(A) (none) 11/10/2023 4:44 PM CDT [facility] IMEN ADEQUACY Satisfactory for evaluation Endocervical component present 11/10/2023 4:44 PM CDT [facility] HPV REQUEST HPV and PAP 11/10/2023 4:44 PM CDT [facility] Date of LMP 11/10/2023 4:44 PM CDT [facility] Comment:Unknown Last Pap Date 05/15/2019 11/10/2023 4:44 PM CDT [facility] Last Pap Result NIL 4:44 PM CDT [facility] Additional Information 11/10/2023 4:44 PM CDT [facility] Comment: Interpreted at [facility], Central Laboratory - [address] [place] [address] [address] [address] Automated Review Successful 11/10/2023 4:44 PM CDT [facility] Comment:Specimen processed s uccessfully by automated beading machine operator device, ThinPrep Imaging System, [employer] ANCILLARY TESTING GARMENT SEWER HAND HPV Ordered, Please see separate report 11/10/2023 4:44 PM CDT [facility] Note The pap test [...] and malignant lesions. 11/10/2023 4:44 PM CDT [facility] Other (Cervical) 11/03/2023 10:45 AM CDT 11/04/2023 9:54 AM CDT Malena Aguayo PA-C PATHOLOGY/CYTOLOGY [facility] [address] [place] [address], * (ABNORMAL) HPV HIGH RISK (11/03/2023 10:45 AM CDT) TYPE 16 Negative Negative 11/07/2023 2:30 PM CDT [facility] TYPE 18 Negative Negative 11/07/2023 2:30 PM CDT [facility] OTHER HIGH RISK TYPES Positive(A) Negative 11/07/2023 2:30 PM CDT [facility] Other (Cervical) 11/03/2023 10:45 AM CDT 11/04/2023 9:54 AM CDT Narrative [facility] - 11/07/2023 2:30 PM CDT Specimen is positive for the DNA of any one of, or combination of, the following high risk HPV types: 31, 33, 35, 39, 45, 51, 52, 56, 58, 59, 66, 68. HPV types 16 and 18 DNA were undetectable or below the pre-set threshold. ? Methodology: Riki Lloyd 4800 HPV Test Malena Aguayo PA-C MICROBIOLOGY [facility] [address] [place] [address], from Last 3 Months Care Teams Web Production Manager Relationship Specialty Start Date End Date Malena Aguayo PA-C [address] [place] [address] PCP - General Emergency Medicine 04/09/22
== END 2023-12-20 07:21 | disposition home or self-care (01) ==
LOC: NFLDREF 12-22 09:41
PROVIDERS: PCP Physician Assistant Medical; Referring Provider Physician Assistant Medical; Visit Provider Physician Assistant Medical
DX: N30.01 Acute cystitis with hematuria (principal); N39.0 Urinary tract infection, site not specified; B37.2 Candidiasis of skin and nail
CPT/HCPCS: 87086; 87186

== ENCOUNTER 2024-01-25 14:52 | Outpatient (CLI) | payer BC, SELFPAY ==
--- OUTSIDE RECORDS SUMMARY | 2024-01-25 14:55 | XMS_ITS | Data Portability ---
[facility] Address [address] [place] [address] Care Team Providers Care Quality Assurance Engineer Name Role Phone MARGUERITE GONZALEZ Primary Care [...] tamsulosin 0.4 mg capsule 2020 021 INTERFACE [id number], [address], [place], [address], 14:32:49 Patient TargetsNo targets recorded. Patient Instructions Encounter Date Encounter Id Patient Instructions Last Modified By Organization Details Last Modified Time 06/13/2020 [id number] will send urine for pathnostic, try tamsulosin for the urethral sx's.plan recheck in one month/ with CT urogram [email or web address] Not available 06/13/2020 14:35:06 07/07/2020 [id number] doing well with tamsulosin, will continue on this until refills gone, rtc if still sx's at that point. [email or web address] Not available 07/07/2020 15:10:27 Reason for Referral None Reported. Results Created Date Observation Date Name Description Value Unit Range Abnormal Flag Note LastModifiedBy Organization Detail LastModifiedTime 07/08/19 21 07/07/2020 urina lysis , dipst ick Color-Status Yellow Not Available [facility] [address], [place], [address], 07/07/2020 14:45:09 07/08/19 21 07/07/2020 urina lysis , dipst ick Glucose-Stat us Negati ve Not Available [facility] [address], [place], [address], 07/07/2020 14:45:09 07/08/19 21 07/07/2020 urina lysis , dipst ick Bilirubin-St atus Negati ve Not Available [facility] [address], [place], [address], 07/07/2020 14:45:09 07/08/19 21 07/07/2020 urina lysis , dipst ick Ketones-Stat us Negati ve Not Available [facility] [address], [place], [address], 07/07/2020 14:45:09 07/08/19 21 07/07/2020 urina lysis , dipst ick Nitrates-Sta tus negati ve Not Available [facility] [address], [place], [address], 07/07/2020 14:45:09 07/08/19 21 07/07/2020 urina lysis , dipst ick Blood-Status Modera te Not Available [facility] [address], [place], [address], 07/07/2020 14:45:09 07/08/19 21 07/07/2020 urina lysis , dipst ick Leuko-Status Negati ve Not Available [facility] [address], [place], [address], 07/07/2020 14:45:09 06/18/19 21 06/13/2020 bladd er scan (PROC ) No observ ation record ed. BARCODE Not Available 2020 10:21:32 07/08/19 21 07/07/2020 bladd er scan (PROC ) No observ ation record ed. BARCODE Not Available 2020 17:56:51 07/09/19 21 07/07/2020 bladd er scan (PROC ) No observ ation record ed. BARCODE Not Available 2020 14:28:33 07/10/19 21 07/07/2020 CT, urogr am No observ ation record ed. [email or web address] Not Available 07/09 16:07:42 Result Notes None recorded. Procedures Surgical History Date Name Laterality Status Provider Name and Address Organization Details Recorded Time Bladder Scan completed Lam Leal [facility] 07/07/2020 14:45:03 Imaging Results Imaging Date Name Status LastModified by Organiz ation Details LastModified Time 06/13/2020 bladder scan (PROC) completed BARCODE Information not available 06/17/2020 10:21:32 07/07/2020 bladder scan (PROC) completed BARCODE Information not available 07/07/2020 17:56:51 07/07/2020 bladder scan (PROC) completed BARCODE Information not available 07/08/2020 14:28:33 07/07/2020 CT, urogram completed [email or web address] Information n ot available 07/09/2020 16:07:42 Procedure [...] Updated DateTime 06/13/2020 157.48 cm 31.1 kg/m2 50764.7 g Alec Woo [facility] 06/13/2020 14:02:26 Date Recorded Body height Body mass index (BMI) Body weight Provider Name and Address Organization Details Last Updated DateTime 07/07/2020 157.48 cm 31.1 kg/m2 52447.[address] [facility] 07/07/2020 14:35:32 Social History Question Answer Notes LastModified by Organizat ion Details LastModified Time Tobacco Smoking Status Never Smoker Alec edouard [facility] 06/13/2020 14:03:50 What Is Your Level Of Alcohol Consumption? None [email or web address] Information not available 06/13/2020 What Is Your Level Of Caffeine Consumption? None Information not available 06/13/2020 How Much Tobacco Do You Chew? None [email or web address] Information not available 07/07/2020 Recreational Drug Use No Information not available 06/13/2020 Marital Status Single [email or web address] Informatio n not available 06/13/2020 What Was The Date Of Your Most Recent Tobacco Screening? 06/13/2020 [email or web address] Information not available 06/13/2020 Are You Sexually Active? No [email or web address] Information not available 06/13/2020 Sex: Unknown Functional Status None recorded. Mental Status None recorded. Family History Relationship Description Onset Age of this Age Resolved Age Notes LastModified by Organization Details LastModified Time Father No current problems or disability [email or web address] Not available 06/13 14:03:39 Mother No current problems or disability [email or web address] Not available 06/13 14:03:39 Medical History Condition Response Other N High Blood Pressure N Kidney Stones N Depression N Lung Disease N GERD/Acid Reflux N Sexually Transmitted Infection N Cancer N High Cholesterol N Diabetes N Bleeding Disorder N Heart Disease N Gynecological History Statement/Question Response Irregular periods N Leaking urine with intercourse N Hormone Therapy N Heavy periods N Pain with intercourse N Sexually Active? N Obstetrics History GPAL:G 3 P 0 0 0 3 Type Value Living 3 Total 3 Past Encounters Encounter ID Performer Location Encounter Start Date Encounter Closed Date Diagnosis/Indication Diagnosis SNOMED-CT Code Diagnosis ICD10 Code [id number] Sebastián Clayton MD [facility] [address] [place] [address] 06/13/2020 13:45:12 06/16/2020 09:45:32 Microscopic hematuria 099116604 R31.29 Recurrent urinary tract infection 916398253 N39.0 Urinary tr act infectious disease 21615184 N39.0 [id number] Sebastián Clayton MD [facility] [address] 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 Health Concerns Section Related Observation LastModified by Organization Detai ls LastModified Time None Recorded Concern Status LastModified by Organization Details LastModified Time None Recorded Advance Directives Directive None Recorded Payers Encounter Date Sequence Insurance Name Policy Number Policy Rojas Covered Member ID Rojas Member ID Guarantor Name 06/13/2020 1 [facility] (MEDICAID REPLACEMENT - HMO) [facility] [id number] Hanna House 07/07/2020 1 [facility] (MEDICAID REPLACEMENT - HMO) [facility] [id number] Hanna House Notes Date Note Type Note Provider Name [...] Sebastián Clayton MD [address], [place], [address], [facility] 06/13/2020 15:37:29 07/07/2020 text/html HPI Notes: july w up UTI and urethritis. taking tamsulosin and tolerates it well, helping a lot with her voiding sx's. Had CT urogram today. looks OK on first view, will review formal read when available. Sebastián Clayton MD [address], [place], [address], [facility] 07/07/2020 15:10:50 OBGyn Episode No OBEpisode recorded.
--- OUTSIDE RECORDS SUMMARY | 2024-01-25 14:55 | XMS_ITS | Clinical Summary ---
Author Organization [facility] Address [place], [place] [address] Care Team Providers Care Logging Engineer Name Role Phone Malena Aguayo PA-C Primary Care Provider + [phone] Allergies No known active allergies Medications Medication [...] Description 12/12/2023 2:45 PM CDT Office Visit [facility] [address] [place] [address] Lucio Ariza MD Consult (Hemorrhoids bleeding) 12/12/2023 Travel 12/01/[address] [facility] [address] [place] [address] Lucio Ariza MD Follow Up 12/01/2023 Lab Requisition [facility] [phone] Gabriella Duong MD 11/24/2023 Lab Requisition [facility] [phone] Lucio Ariza MD 11/03/2023 Lab Requisition [facility] [phone] Malena Aguayo PA-C from Last 3 Months [...] 157.5 cm (5' 2) 02/08/2023 12:46 PM COATING MACHINE HELPER Body Mass Index 35.39 02/08/2023 12:46 PM COATING MACHINE HELPER Plan of Treatment Health Maintenance Due Date Last Done Comments Tdap 1996 Depression screening for age 12+ 1997 HIV for age 15-65 2000 Hepatitis C screening for age 18-79 08/20/2003 Tetanus booster 2005 COVID-19 vaccine series ( season) 2023 Influenza for age 9-49 12/04/2023 [...] EVENT Routine 11/03/2023 10 :45 AM CDT MUD ANALYSIS OPERATOR THIN PREP PAP SCREEN IMAGED Routine 11/03/2023 10:45 AM CDT HPV HIGH RISK Routine 11/03/2023 10:45 AM CDT from Last 3 Months Results * LAB TRACKING EVENT (11/30/2023 1:44 PM CDT) Only the most recent of3 resultswithin the time period is included. Other (Other) Client Collect / Unknown 11/30/2023 1:44 PM CDT 12/01/2023 3:23 PM CDT Gabriella Duong MD LAB BILL ONLY [facility] [address] [place] [address], * PATH TISSUE EXAM (11/30/2023 1:44 PM CDT) Only the most recent of2 resultswithin the time period is included. Case Report Pathology Report ?Case: [id number] ? Authorizing Provider: ??Gabriella Duong MD ??Collected: ? 11/30/2023 1344 ? Ordering Location: ? [facility] ?Received: ?12/01/2023 1933 ? Pathologist: ? Isiah Benson MD ? Specimens: ?? A) - Cervical Biopsy, 5 o'clock ? B) - Cervical Biopsy, 7 o'clock ? C) - Cervical Biopsy, 12 o'clock ? D) - Endocervical Curettings ? 12/06/2023 3:47 PM CDT [facility] Final Diagnosis A) CERVIX, 5:00, BIOPSY: [...] lesion, and malignancy 12/06/2023 3:47 PM T [facility] [employer] [facility] Comment The patient's prior Pap test ( [id number];11/03/23) was diagnosed as low grade squamous intraepithelial lesion (LSIL). Concurrent HR-HPV testing was positive for HR-HPV other (non-16/18) subtype(s). The atypical cells seen on the prior cervical Pap test are explained by the current biopsy 12/06/2023 3:47 PM T [facility] Clinical Information History of low grade squamous intraepithelial lesion (LSIL) Pap, concurrent HPV testing positive, Non-16/18. 12/06/2023 3:47 PM T [facility] Gross Description A) Received in formalin, [...] cassette. TLF 12/01/2023 12/06/2023 3:47 PM CDT [facility] [employer] [facility] Microscopic Description The final diagnosis is based on microscopic examination of appropriate sections of all specimens. 12/06/2023 3:47 PM CDT [facility] [employer] [facility] Additional Information Interpreted at [facility], [facility] Laboratory - [address] [address] 12/06/2023 3:47 PM CDT [facility] Other (Cervical Biopsy) 11/30/2023 1:44 PM CDT 12/01/2023 7:33 PM CDT Specimen (specimen) (Cervical Biopsy) 11/30/2023 1:45 PM CDT 12/01/2023 7:33 PM CDT Specimen (specimen) (Cervical Biopsy) 11/30/2023 1:46 PM CDT 12/01/2023 7:33 PM CDT Specimen (specimen) (Endocervical Curettings) 11/30/2023 1:47 PM CDT 12/01/2023 7:33 PM CDT Gabriella Duong MD PATHOLOGY/CYTOLO GY [facility] [address] [place] [address], * (ABNORMAL) MUD ANALYSIS OPERATOR THIN PREP PAP SCREEN IMAGED (11/03/2023 10:45 AM CDT) Case Report Gynecologic Cytology Report ? Case: [id number] ? Authorizing Provider: ??Malena Aguayo PA-C ?Collected: ? 11/03/2023 1045 ? Ordering Location: ? [facility] ?Received: ?11/04/2023 0954 ? First Screen: ?Tisha Birmingham ? Pathologist: ? Ruchi Marte ? MD Nica ? Specimen: ?MUD ANALYSIS OPERATOR ThinPrep Vial Screening, Cervical ? 11/10/2023 4:44 PM CDT [facility] INTERPRETATION/ RESULT LOW GRADE SQUAMOUS INTRAEPITHELIAL LESION (LSIL)(A) (none) 11/10/2023 4:44 PM CDT [facility] IMEN ADEQUACY Satisfactory for evaluation Endocervical component present 11/10/2023 4:44 PM CDT [facility] HPV REQUEST HPV and PAP 11/10/2023 4:44 PM CDT [facility] Date of LMP 11/10/2023 4:44 PM CDT [facility] Comment:Unknown Last Pap Date 05/15/2019 11/10/2023 4:44 PM CDT [facility] Last Pap Result NIL 4:44 PM CDT [facility] Additional Information 11/10/2023 4:44 PM CDT [facility] Comment: Interpreted at [facility], [facility] Laboratory - [address] [place] [address] [address] [address] Automated Review Successful 11/10/2023 4:44 PM CDT [facility] Comment:Specimen processed s uccessfully by automated ged teacher device, ThinPrep Imaging System, [employer] ANCILLARY TESTING MUD ANALYSIS OPERATOR HPV Ordered, Please see separate report 11/10/2023 4:44 PM CDT [facility] Note The pap test is a [...] and malignant lesions. 11/10/2023 4:44 PM CDT [facility] Other (Cervical) 11/03/2023 10:45 AM CDT 11/04/2023 9:54 AM CDT Malena Aguayo PA-C PATHOLOGY/CYTOLOGY [facility] [address] [place] [address], * (ABNORMAL) HPV HIGH RISK (11/03/2023 10:45 AM CDT) TYPE 16 Negative Negative 11/07/2023 2:30 PM CDT [facility] TYPE 18 Negative Negative 11/07/2023 2:30 PM CDT [facility] OTHER HIGH RISK TYPES Positive(A) Negative 11/07/2023 2:30 PM CDT [facility] Other (Cervical) 11/03/2023 10:45 AM CDT 11/04/2023 9:54 AM CDT Narrative [facility] - 11/07/2023 2:30 PM CDT Specimen is positive for the DNA of any one of, or combination of, the following high risk HPV types: 31, 33, 35, 39, 45, 51, 52, 56, 58, 59, 66, 68. HPV types 16 and 18 DNA were undetectable or below the pre-set threshold. ? Methodology: Riki Lloyd 4800 HPV Test Malena Aguayo PA-C MICROBIOLOGY [facility] [address] [place] [address], from Last 3 Months Care Teams Logging Engineer Relationship Specialty Start Date End Date Malena Aguayo PA-C [address] [place] [address] PCP - General Emergency Medicine 04/09/22
--- NOTE | 2024-01-25 15:00 | CRLHL7_ITS ---
For Patients: As a result of the Century Cures Act, medical imaging exams and procedure reports are released immediately into your electronic medical record. You may view this report before your referring provider. If you have questions, please contact your health care provider. INDICATION: Follow-up pulmonary nodules. COMPARISON: CT chest with intravenous contrast January 26, 2023. TECHNIQUE: CT chest without intravenous contrast; coronal and sagittal reformats. FINDINGS: A 4 mm subpleural noncalcified nodule right middle lobe slice 53 series 3; stable. A 5 mm juxtapleural noncalcified nodular density lower lobe left lung slices 38 series 3; stable. No other abnormal intra pulmonary nodular densities identified. No evidence of pleural effusion or chest wall pathology. No abnormal mediastinal or hilar lymphadenopathy. Limited CT through the upper abdomen reveals mild diffuse fatty infiltration of the liver. IMPRESSION: 1. Stable appearing 4 mm nodule in the right middle lobe and 5 mm nodule in the left lower lobe; follow-up chest CT in 1 year duration suggested. 2. Mild diffuse fatty infiltration of the liver. Please note that all CT scans at this facility use dose modulation, iterative reconstruction, and/or weight-based dosing when appropriate to reduce radiation dose to as low as reasonably achievable. Dictated by Gaurang Lynn MD @ 01/27/2024 12:17:08 PM (Electronically Signed)
== END 2024-01-25 14:53 | disposition home or self-care (01) ==
LOC: CT 14:53
PROVIDERS: PCP Physician Assistant Medical; Visit Provider Physician Assistant Medical
DX: R91.1 Solitary pulmonary nodule (principal); K76.0 Fatty (change of) liver, not elsewhere classified
CPT/HCPCS: 71250

== ENCOUNTER 2024-02-29 07:30 | Outpatient (RCR) | payer BC, SELFPAY ==
--- NOTE | 2024-02-22 15:32 | OT.OPOE ---
OT Outpatient Ortho Eval OT Outpatient Ortho Eval* Start: 02/22/24 10:53 Freq: Status: Active Protocol: Document 02/22/24 10:53 CORNEL (Rec: 02/22/24 15:29 [email or web address] [id number]) E-signed By Marcia Rodgers, OTR/L, CLT OT OP Ortho Eval Details Complexity Complexity Low Insurance Information Insurance Information [employer] Outpatient History/Precautions Current Condition/Medical Diagnosis Referring Provider Dr. Khoa Lloyd Medical Diagnoses Lateral epicondylitis of elbow M77.10 Biceps tendonitis on left M75 .22 Treatment Diagnosis Pain in the L elbow, M25.522 Localized edema is R60.0 Date of Onset 01/10/2024 Other Precautions Provider wrote Continue restrictions for another month but didn't write what the restrictions were Patient states: 3.5 hours M-F (with lifting restrictions: nothing over 20 lbs). 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 Other Conditions Fatty liver (Acute) 01/27/2024- incidental mild diffuse fatty infiltration of the liver; CT chest K76.0 - Fatty (change of) liver, not elsewhere classified (ICD-10) Abnormal Pap smear of cervix ( Acute ~10/2023) LSIL + HPV R87.619 - Unspecified abnormal cytological findings in specimens from cervix uteri ( ICD-10) SVT (supraventricular tachycardia) (Acute) On metoprolol 02/08/2023-completed Holter monitor- sinus rhythm with intermittent first-degree AV block, average heart rate 85 beats per minute, intermittent sinus tachycardia, maximum heart rate 142 beats per minute. Rare premature ventricular complexes, singles . Two isolated premature supraventricular complexes. 03/11/2023-completed echocardiogram I47.10 - Supraventricular tachycardia, unspecified (ICD- 10) Pulmonary nodule (Acute ~2022) 01/27/2024- CT chest- stable appearing 4 mm nodule in the right middle lobe and 5 mm nodule in the left lower lobe; follow-up 1 year 01/26/2023 IMPRESSION: 1. Negative for acute pulmonary embolism. No other acute findings in the chest. 2. Two stable noncalcified pulmonary nodules measuring up to 5 mm. Please see follow-up guidelines below . Recheck in 12 months R91.1 - Solitary pulmonary nodule (ICD-10) Alcohol abuse (Acute) 06/30/2022-start Lexapro 10 mg daily - did not start 11/03/2023- working with therapist weekly; ( 10 beers per month currently) F10.10 - Alcohol abuse, uncomplicated (ICD-10) Anxiety (Acute) F41.9 - Anxiety disorder, unspecified (ICD-10) Herpes simplex (Acute) Mynor she knows Valtrex p.r.n. B00.9 - Herpesviral infection, unspecified (ICD-10) Microscopic hematuria (Acute) R31.29 - Other microscopic hematuria (ICD-10) Impaired glucose tolerance during (Acute ) O99.810 - Abnormal glucose complicating (ICD-10 ) Gastroesophageal reflux disease (Acute) K21.9 - Gastro-esophageal reflux disease without esophagitis (ICD-10) Medical/Functional History Medical History Reviewed Yes Prior Level of Function/Mobility . 3 kids ( 21, 18, 9) Alcohol- 10 beers every couple weeks; she was drinking daily . 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 She has been on diclofenac, has a elbow brace that she can wear work, she also has been doing her stretches for both tennis elbow and golfer's elbow and continues to have significant symptomatology. Date of injury : 01/10/2024, patient employer [employer] as a lunch lady. Pain Assessment Pain Pain Yes Pain Comments 5-10/10 with activity No activity 2-3/10 OT Problems Problems Problems Decreased Strength,Pain, Lifting,Gripping,Pinching Problems Comments 27.7 cm's around the L elbow crease, mild loose edema surrounding the elbow, forearm muscles are very tight 27 cm's around the R elbow crease Other Problems Sleeping Patient Potential Good Assessment Assessment Assessment 38 year old female patient since by provider on 01/26/24 and again on 02/13/24 for the same symptoms: left elbow medial and lateral epicondylitis, she also has biceps tendinitis. She has been on diclofenac, has a elbow brace that she can wear work, she also has been doing her stretches for both tennis elbow and golfer's elbow and continues to have significant symptomatology. Date of injury : 01/10/2024, patient employer [employer] as a lunch lady. Patient was pleasant, alert, orientated, asked great questions in session, was an active listener to information presented to her and showed signs of motivation/ willingness to follow the presented protocol in POC. PLAN: lateral epicondylitis protocol, use of Ultrasound, Ionto, Manual treatment ( LORI), development of an individualized home exercise program that progresses as patient is able to take on increased challenge and pain symptoms decrease with patient education on biomechanics/ ergonometric/activity modifications to decrease flare-ups. Occupational Therapy Treatment Plan - OP Potential Rehabilitation Potential Good Barriers Barriers to goal attainment BARRIERS: 1. With repetitive work tasks to the tendon(s)/tissue(s) there is no break/time to allow for healing to occur 2. No imaging was done at PCP- unknown amount of damage Set Goals Goals Set with Patient Yes Goals Goals 1. Patient will verbalize 3 activity modifications to decrease abusive/overloading of the tendons. -progressing, continue 2. 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 - progressing, continue 3. Through activity participation in skilled therapy sessions, and consistency in performing a customized HEP, patient will improve capacity of tendons and muscles to manage load in order to have less pain with ADLs, work, leisure activities and IADLs. -progressing, continue 4. From EVAL raw score (53 points) on The Disabilities of the Arm, Shoulder and Hand ( DASH) patient will have a decreased score by >9 points in order to show significant change in UE function to better her ADL, IADL, work and leisure performance. Target Date 12 weeks Treatment Plan Treatment Plan Evaluation,Edema Control, Iontophoresis,Joint Mobilization,Manual Therapy, Ultrasound,Therapeutic Exercise,Self Care/Home Management,Education Expected Frequency 1-2x Week Expected Duration 12 Comment Summary Quick DASH 53 points Home Program Home Program Home Program Initiated Home Program Specifics Access Code: [email or web address] URL: [email or web address] Prepared by: Marcia Rodgers Exercises - Seated Isometric Elbow Flexion - 1 x daily - 7 x weekly - 1 sets - 10-15 reps - 5 hold - Isometric Tricep Extension - 1 x daily - 7 x weekly - 1 sets - 10-15 reps - 5 hold - Isometric Wrist Extension Pronated - 1 x daily - 7 x weekly - 1 sets - 10-15 reps - 5 hold - Seated Isometric Wrist Flexion Supinated with Manual Resistance - 1 x daily - 7 x weekly - 1 sets - 10-15 reps - 5 hold - Seated Isometric Wrist Ulnar Deviation with Manual Resistance - 1 x daily - 7 x weekly - 1 sets - 10-15 reps - 5 hold - Seated Isometric Wrist Radial Deviation with Manual Resistance - 1 x daily - 7 x weekly - 1 sets - 10-15 reps - 5 hold - Serratus Activation at Wall with Foam Roll - 1 x daily - 7 x weekly - 1 sets - 10-15 reps - Supine Scapular Protraction in Flexion with Dumbbells - 1 x daily - 7 x weekly - 1 sets - 10-15 reps - Quadruped Scapular Protraction and Retraction - 1 x daily - 7 x weekly - 1 sets - 10-15 reps - Prone W Scapular Retraction - 1 x daily - 7 x weekly - 1 sets - 10-15 reps - 3 hold - Shoulder External Rotation and Scapular Retraction with Resistance - 1 x daily - 7 x weekly - 1 sets - 10-15 reps - 3 hold - Scapular Retraction with Resistance - 1 x daily - 7 x weekly - 1 sets - 10-15 reps - 3 hold - Seated Elbow Manual Massage Perpendicular - 1-3 x daily - 7 x weekly (Cross Friction Massage to the extensor carpi radialis (ECR)). Tennis Elbow Stretches to the forearm extensors and flexors (should be done frequently); & Ice cup massage after repetitive/heavy activities or when sore/painful (PRN) Certification Certification Statement I Certify That: Therapy Services Provided, Therapy Plan Established, Therapy Plan Reviewed Certification Information Clinic ID # [id number] Initial Certification Date 02/22/24 Recertification Due Date 05/22/24 Provider Signature Required Yes Provider Signature Shows Agreement With POC & Medical Necessity Physician NPI Number Write NPI# Here Physician Comment/Change Comment or Changes Physician Signature & Date Requested Please Sign/Date Here
== END 2024-06-05 10:13 | disposition home or self-care (01) ==
PROVIDERS: PCP Physician Assistant Medical; Visit Provider Family Medicine
DX: M77.12 Lateral epicondylitis, left elbow (principal); M75.22 Bicipital tendinitis, left shoulder; R60.0 Localized edema; Z51.89 Encounter for other specified aftercare
CPT/HCPCS: 97035; 97110; 97140; 97165; X5282

== ENCOUNTER 2024-04-01 22:34 | Emergency (ER) | payer BC, SELFPAY ==
--- OUTSIDE RECORDS SUMMARY | 2024-04-01 22:36 | XMS_ITS | Data Portability ---
Author Organization [facility], [facility] Address [address] [place] [address] Care Team Providers Care Coordinator Cardiopulmonary Services Name Role Phone MARGUERITE GONZALEZ Primary Care [...] tamsulosin 0.4 mg capsule 2020 021 INTERFACE [id number], [id number], [place], [address], 14:32:49 Patient TargetsNo targets recorded. Patient Instructions Encounter Date Encounter Id Patient Instructions Last Modified By Organization Details Last Modified Time 06/13/2020 [id number] will send urine for pathnostic, try tamsulosin for the urethral sx's.plan recheck in one month/ with CT urogram [email or web address] Not available 06/13/2020 14:35:06 07/07/2020 [id number] doing well with tamsulosin, will continue on this until refills gone, rtc if still sx's at that point. [email or web address] Not available 07/07/2020 15:10:27 Reason for Referral None Reported. Results Created Date Observation Date Name Description Value Unit Range Abnormal Flag Note LastModifiedBy Organization Detail LastModifiedTime 07/08/19 21 07/07/2020 urina lysis , dipst ick Color-Status Yellow Not Available [facility] [address], [place], [address], 07/07/2020 14:45:09 07/08/19 21 07/07/2020 urina lysis , dipst ick Glucose-Stat us Negati ve Not Available [facility] [address], [place], [address], 07/07/2020 14:45:09 07/08/19 21 07/07/2020 urina lysis , dipst ick Bilirubin-St atus Negati ve Not Available [facility] [address], [place], [address], 07/07/2020 14:45:09 07/08/19 21 07/07/2020 urina lysis , dipst ick Ketones-Stat us Negati ve Not Available [facility] [address], [place], [address], 07/07/2020 14:45:09 07/08/19 21 07/07/2020 urina lysis , dipst ick Nitrates-Sta tus negati ve Not Available [facility] [address], [place], [address], 07/07/2020 14:45:09 07/08/19 21 07/07/2020 urina lysis , dipst ick Blood-Status Modera te Not Available [facility] [address], [place], [address], 07/07/2020 14:45:09 07/08/19 21 07/07/2020 urina lysis , dipst ick Leuko-Status Negati ve Not Available [facility] [address], [place], [address], 07/07/2020 14:45:09 06/18/19 21 06/13/2020 bladd er [...] urogr am No observ ation record ed. [email or web address] Not Available 07/09 16:07:42 Result Notes None recorded. Procedures Surgical History Date Name Laterality Status Provider Name and Address Organization Details Recorded Time Bladder Scan completed Lam Leal [facility] 07/07/2020 14:45:03 Imaging Results Imaging Date Name Status LastModified by Organiz ation Details LastModified Time 06/13/2020 bladder scan (PROC) completed BARCODE Information not available 06/17/2020 10:21:32 07/07/2020 bladder scan (PROC) completed BARCODE Information not available 07/07/2020 17:56:51 07/07/2020 bladder scan (PROC) completed BARCODE Information not available 07/08/2020 14:28:33 07/07/2020 CT, urogram completed [email or web address] Information n ot available 07/09/2020 16:07:42 Procedure [...] Updated DateTime 06/13/2020 157.48 cm 31.1 kg/m2 30118.7 g Alec Woo [facility] 06/13/2020 14:02:26 Date Recorded Body height Body mass index (BMI) Body weight Provider Name and Address Organization Details Last Updated DateTime 07/07/2020 157.48 cm 31.1 kg/m2 98251.[address] [facility] 07/07/2020 14:35:32 Social History Question Answer Notes LastModified by Organizat ion Details LastModified Time Tobacco Smoking Status Never Smoker Alec edouard [facility] 06/13/2020 14:03:50 What Is Your Level Of Alcohol Consumption? None [email or web address] Information not available 06/13/2020 What Is Your Level Of Caffeine Consumption? None [email or web address] Information not available 06/13/2020 How Much Tobacco Do You Chew? None [email or web address] Information not available 07/07/2020 Recreational Drug Use No [email or web address] Information not available 06/13/2020 Marital Status Single [email or web address] Informatio n not available 06/13/2020 What Was The Date Of Your Most Recent Tobacco Screening? 06/13/2020 [email or web address] Information not available 06/13/2020 Are You Sexually Active? No [email or web address] Information not available 06/13/2020 Sex: Unknown Functional Status None recorded. Mental Status None recorded. Family History Relationship Description Onset Age of this Age Resolved Age Notes LastModified by Organization Details LastModified Time Father No current problems or disability [email or web address] Not available 06/13 14:03:39 Mother No current problems or disability [email or web address] Not available 06/13 14:03:39 Medical History Condition Response Diabetes N Sexually [...] Diagnosis/Indication Diagnosis SNOMED-CT Code Diagnosis ICD10 Code [id number] Sebastián Clayton MD [facility] [address] [place] [address] 06/13/2020 13:45:12 06/16/2020 09:45:32 Microscopic hematuria 809600736 R31.29 Recurrent urinary tract infection 404451156 N39.0 Urinary tr act infectious disease 80774478 N39.0 [id number] Sebastián Clayton MD [facility] [address] 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 Health Concerns Section Related Observation LastModified by Organization Detai ls LastModified Time None Recorded Concern Status LastModified by Organization Details LastModified Time None Recorded Advance Directives Directive None Recorded Payers Encounter Date Sequence Insurance Name Policy Number Policy Rojas Covered Member ID Rojas Member ID Guarantor Name 06/13/2020 1 [facility] (MEDICAID REPLACEMENT - HMO) [facility] Hanna House [id number] Hanna House 07/07/2020 1 [facility] (MEDICAID REPLACEMENT - HMO) [facility] Hanna House [id number] Hanna House Notes Date Note Type Note Provider Name and Address Organization Details Recorded Time 06/13/2020 text/html sent for eval of microhematuria, UTI, UTI like sx's, recently finished doxycycline and sx's persisting so started amitriptylline and that has helped some. still felling lot of urethral discomfort, post void cramping. . PVR 24ml today. had CT last fall with no stones/obstruction. mom has kidney stones. Sebastián Clayton MD [address] [facility] [address], [place], [address], [facility] 06/13/2020 15:37:29 07/07/2020 text/html follow up UTI an d urethritis. taking tamsulosin and tolerates it well, helping a lot with her voiding sx's. Had CT urogram today. looks OK on first view, will review formal read when available. Sebastián Clayton MD [address] [place] [address],[address], [place], [address], [facility] 07/07/2020 15:10:50 OBGyn Episode No OBEpisode recorded.
[2024-04-01 23:20] VITALS: BP 151/96; PULSE 108; RESP 18; TEMP 36.4; O2SAT 97
== END 2024-04-01 23:47 | disposition left against medical advice (07) ==
LOC: ED 23:42
PROVIDERS: PCP Physician Assistant Medical
DX: Z53.21 Procedure and treatment not carried out due to patient leaving prior to being seen by health care provider (principal)

== ENCOUNTER 2024-04-28 11:42 | Emergency (ER) | payer BC, SELFPAY ==
--- OUTSIDE RECORDS SUMMARY | 2024-04-28 11:45 | XMS_ITS | Clinical Summary ---
Author Organization [employer] [facility] Address [place], [place] [address] Care Team Providers Care Wood Flour Miller Name Role Phone Malena Aguayo PA-C Primary Care Provider + [phone] Allergies No known active allergies Medications metoprolol succinate (TOPROL XL) 25 mg Sustained-Relea se tablet TAKE ONE TABLET BY MOUTH DAILY for palpitations and blood pressure* 3 Active lidocaine 5 % ointmentIndicat ions:Anal fissure Apply to anal fissure 2-3 times per day as needed pain. 1 g 1 4 Active Social History Tobacco Use Types Packs/Day Years Used Date Smoking Tobacco: Never Smokeless Tobacco: Never Tobacco Cessation:Counseling Given: Not Answered Alcohol Use Standard Drinks/Week Comments Yes 3 (1 standard drink = 0.6 oz pur e alcohol) Social Connections Answer Date Recorded Frequency of Communication with Friends and Fami ly Not on file 04/16/2022 Comments Unknown Sex and Gender Information Value Date Recorded Sex Assigned at Not on file Legal Sex Female 5:25 AM REPAIR [employer]URE W[employer]ER Gender Identity Not on file Sexual Orientation [...] 157.5 cm (5' 2) 02/08/2023 12:46 PM 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 TYPE 18 Negative Negative 11/07/2023 2:30 PM CDT [facility] OTHER HIGH RISK TYPES Positive(A) Negative 11/07/2023 2:30 PM CDT [facility] Other (Cervical) 11/03/2023 10:45 AM CDT 11/04/2023 9:54 AM CDT [facility] - 11/07/2023 2:30 PM CDT Specimen is positive for the DNA of any one of, or combination of, the following high risk HPV types: 31, 33, 35, 39, 45, 51, 52, 56, 58, 59, 66, 68. HPV types 16 and 18 DNA were undetectable or below the pre-set threshold. Methodology: Riki Lloyd 4800 HPV Test Malena Aguayo PA-C MICROBIOLOGY Final Result [facility] [address] [place] [address], from Last 3 Months or Most Recently Relevant to Health Maintenance Insurance [employer]) [facility] Care Teams Wood Flour Miller Relationship Specialty Start Date End Date Malena Aguayo PA-C [address] [place] [address] PCP - General Emergency Medicine 04/09/22
--- OUTSIDE RECORDS SUMMARY | 2024-04-28 11:45 | XMS_ITS | Data Portability ---
Author Organization [facility], [facility] Address [address] [place] [address] Care Team Providers Care Talent Acquisition Consultant Name Role Phone MARGUERITE GONZALEZ Primary Care [...] tamsulosin 0.4 mg capsule 2020 021 INTERFACE [id number], [address], [place], [address], 14:32:49 Patient TargetsNo targets recorded. Patient Instructions Encounter Date Encounter Id Patient Instructions Last Modified By Organization Details Last Modified Time 06/13/2020 [id number] will send urine for pathnostic, try tamsulosin for the urethral sx's.plan recheck in one month/ with CT urogram [email or web address] Not available 06/13/2020 14:35:06 07/07/2020 [id number] doing well with tamsulosin, will continue on this until refills gone, rtc if still sx's at that point. [email or web address] Not available 07/07/2020 15:10:27 Reason for Referral None Reported. Results Created Date Observation Date Name Description Value Unit Range Abnormal Flag Note LastModifiedBy Organization Detail LastModifiedTime 07/08/19 21 07/07/2020 urina lysis , dipst ick Color-Status Yellow Not Available [facility] [address], [place], [address], 07/07/2020 14:45:09 07/08/19 21 07/07/2020 urina lysis , dipst ick Glucose-Stat us Negati ve Not Available [facility] [address], [place], [address], 07/07/2020 14:45:09 07/08/19 21 07/07/2020 urina lysis , dipst ick Bilirubin-St atus Negati ve Not Available [facility] [address], [place], [address], 07/07/2020 14:45:09 07/08/19 21 07/07/2020 urina lysis , dipst ick Ketones-Stat us Negati ve Not Available [facility] [address], [place], [address], 07/07/2020 14:45:09 07/08/19 21 07/07/2020 urina lysis , dipst ick Nitrates-Sta tus negati ve Not Available [facility] [address], [place], [address], 07/07/2020 14:45:09 07/08/19 21 07/07/2020 urina lysis , dipst ick Blood-Status Modera te Not Available [facility] [address], [place], [address], 07/07/2020 14:45:09 07/08/19 21 07/07/2020 urina lysis , dipst ick Leuko-Status Negati ve Not Available [facility] [address], [place], [address], 07/07/2020 14:45:09 06/18/19 21 06/13/2020 bladd er [...] urogr am No observ ation record ed. [email or web address] Not Available 07/09 16:07:42 Result Notes None recorded. Procedures Surgical History Date Name Laterality Status Provider Name and Address Organization Details Recorded Time Bladder Scan completed Lam Leal [facility] 07/07/2020 14:45:03 Imaging Results Imaging Date Name Status LastModified by Organiz ation Details LastModified Time 06/13/2020 bladder scan (PROC) completed BARCODE Information not available 06/17/2020 10:21:32 07/07/2020 bladder scan (PROC) completed BARCODE Information not available 07/07/2020 17:56:51 07/07/2020 bladder scan (PROC) completed BARCODE Information not available 07/08/2020 14:28:33 07/07/2020 CT, urogram completed [email or web address] Information n ot available 07/09/2020 16:07:42 Procedure [...] Not Available Vitals Date Recorded Body height Provider Name an d Address Organization Details Last Updated DateTime 06/13/2020 157.48 cm Alec Woo [facility] 0 06/13/2020 14:02:22 Date Recorded Body mass index (BMI) Body weight Provider Name and Address Organization Details Last Updated DateTime 06/13/2020 31.1 kg/m2 68438.7 g Alec Woo [facility] 06/13/2020 14:02:26 Date Recorded Body height Provider Name an d Address Organization Details Last Updated DateTime 07/07/2020 157.48 cm Margarito Phelps [facility] 07/07/2020 14:35:25 Date Recorded Body mass index (BMI) Body weight Provider Name and Address Organization Details Last Updated DateTime 07/07/2020 31.1 kg/m2 44919.7 g Margarito Phelps [facility] 07/07/2020 14:35:32 Social History Question Answer Notes LastModified by Organizat ion Details LastModified Time Tobacco Smoking Status [facility]/2020 14:03:50 What Is Your Level Of Alcohol Consumption? None Information not available 06/13/2020 What Is Your Level Of Caffeine Consumption? None Information not available 06/13/2020 How Much Tobacco Do You Chew? None [email or web address] Information not available 07/07/2020 Recreational Drug Use No [email or web address] Information not available 06/13/2020 Marital Status Single [email or web address] Informatio n not available 06/13/2020 What Was The Date Of Your Most Recent Tobacco Screening? 06/13/2020 [email or web address] Information not available 06/13/2020 Are You Sexually Active? No [email or web address] Information not available 06/13/2020 Sex: Unknown Functional Status None recorded. Mental Status None recorded. Family History Relationship Description Onset Age of this Age Resolved Age Notes LastModified by Organization Details LastModified Time Father No current problems or disability [email or web address] Not available 06/13 14:03:39 Mother No current problems or disability [email or web address] Not available 06/13 14:03:39 Medical History Condition [...] Diagnosis/Indication Diagnosis SNOMED-CT Code Diagnosis ICD10 Code Diagnosis Note [id number] Sebastián Clayton MD [facility] [address] [place] [address] 06/13/2020 13:45:12 06/16/2020 09:45:32 Microscopic hematuria 956883840 R31.29 Recurrent urinary tract infection 611079975 N39.0 Urinary tr act infectious disease 24139673 N39.0 [id number] Sebastián Clayton MD [facility] [address] 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 Health Concerns Section Related Observation LastModified by Organization Detai ls LastModified Time None Recorded Concern Status LastModified by Organization Details LastModified Time None Recorded Advance Directives Directive None Recorded Payers Encounter Date Sequence Insurance Name Policy Number Policy Rojas Covered Member ID Rojas Member ID Guarantor Name 06/13/2020 1 [employer] [employer] Hanna Douglaser [id number] Hanna House 07/07/2020 1 [employer] [facility] Ca Leuabieler [id number] Hanna Douglaser Notes Date Note Type Note Provider Name [...] mom has kidney stones. Sebastián Clayton MD [address] [place] [address],[address], [place], [address], [facility] 06/13/2020 15:37:29 07/07/2020 text/html follow up UTI an d urethritis. taking tamsulosin and tolerates it well, helping a lot with her voiding sx's. Had CT urogram today. looks OK on first view, will review formal read when available. Sebastián Clayton MD [address] [place] [address],[address], [place], [address], [facility] 07/07/2020 15:10:50 OBGyn Episode No OBEpisode recorded.
[2024-04-28 12:08] VITALS: BP 135/90; PULSE 81; RESP 18; TEMP 36.5; O2SAT 97; BMI 32.0
[2024-04-28 12:30] LABS: Appearance Urine Clear (Clear); Bilirubin Urine Negative (Negative); Blood Urine 2+ (Negative); Color Urine Light yellow (Yellow); Glucose Urine Negative (Negative); Ketones Urine Negative (Negative); Leukocyte Esterase Urine Negative (Negative); Nitrite Urine Negative (Negative); Protein Urine Negative (Negative); Specific Gravity Urine 1.015 (1.000-1.030); Urobilinogen Urine 0.2 (0.2-1.0)
--- NOTE | 2024-04-28 12:42 | CRLHL7_ITS ---
For Patients: As a result of the Century Cures Act, medical imaging exams and procedure reports are released immediately into your electronic medical record. You may view this report before your referring provider. If you have questions, please contact your health care provider. INDICATION: Post colonoscopy bleeding and pain. TECHNIQUE: Multiplanar CT examination of the abdomen and pelvis was performed after the administration of 85 mL Isovue 370 intravenous contrast. COMPARISON: CT abdomen pelvis 10/25/2019. FINDINGS: Lower chest: No focal consolidation. Normal heart size. No pleural effusions or pneumothorax. Liver: Probable diffuse hepatic steatosis. Gallbladder: Unremarkable. Biliary: Unremarkable. Pancreas: Within normal limits. Spleen: Unremarkable. Adrenal glands: Unremarkable. Renal/ureters/bladder: Normal in size and symmetrically enhancing. No obstructive uropathy. No hydronephrosis or obstructive urinary calculi. No suspicious renal masses. The ureters appear unremarkable. The bladder is within normal limits. Pelvis: Intrauterine device in place. No adnexal masses. Gastrointestinal: No bowel wall thickening or bowel obstruction. Normal appendix. Scattered colonic diverticulosis. There is new linear metallic hyperdense material within the distal transverse colon (2:69), without significant inflammatory changes. Mild colonic stool burden. Vasculature: No aortic aneurysm. The portal vein remains patent. No significant atherosclerotic calcifications. Limited evaluation for subtle active gastrointestinal hemorrhage on this single phase examination. Lymph nodes: No pathologic lymphadenopathy by size criteria. Peritoneum: No free fluid or pneumoperitoneum. No drainable fluid collections. Abdominal wall/soft tissues: Unremarkable. Bones: No acute osseous abnormalities. IMPRESSION: 1. Limited evaluation for subtle active gastrointestinal bleeding on this nondedicated single phase examination. 2. Small metallic hyperdense clips in the distal transverse colon, correlate with recent colonoscopy/procedural note. 3. Scattered colonic diverticulosis without CT evidence of acute diverticulitis. 4. Otherwise, no acute abdominopelvic pathology. Please note that all CT scans at this facility use dose modulation, iterative reconstruction, and/or weight-based dosing when appropriate to reduce radiation dose to as low as reasonably achievable. Dictated by Jeferson Mars MD @ 04/28/2024 1:43:26 PM (Electronically Signed)
--- NOTE | 2024-04-28 12:43 | ED.GENADULT ---
HPI - General Adult General Chief complaint: Abdominal Pain Stated complaint: Post colonoscopy, bleeding, pain Time Seen by Provider: 04/28/24 12:21 History of Present Illness HPI narrative: This 38-year-old female comes in reporting some right flank pain or right abdomen pain. She also has had some bright red blood in the toilet over the past 3 or 4 days. She does have some lightheadedness and feels tired all the time. She did have a colonoscopy a few months ago with a couple polyps removed. She had some small amount of blood for a few days after but these symptoms completely resolved until 4 days ago when these current symptoms began. She arrives here with normal vital signs. Related Data Home Medications ?Medication ?Instructions ?Recorded ?Confirmed levonorgestrel 1 device intrauterine ONCE 10/13/21 03/09/24 smgpksznwuff-Rw-pmaw-minerals 1 tab PO QDAY 10/13/21 03/09/24 Previous Rx's ?Medication ?Instructions ?Recorded metoprolol succinate 25 mg 50 mg (2 x 25 mg) PO QDAY #180 tabs 11/03/23 tablet,extended release 24 hr valacyclovir 500 mg tablet 1,000 mg (2 x 500 mg) PO QDAY PRN 11/03/23 cold sores 5 days #30 tabs diclofenac sodium 75 mg 75 mg PO BID #60 tabs 01/26/24 tablet,delayed release Allergies Allergy/AdvReac Type Severity Reaction Status Date / Time No Known Allergies Allergy Unknown Verified 04/28/24 13:02 Review of Systems Status of ROS: Reports: 10 or more systems reviewed and unremarkable except as noted in History and below Narrative: Constitutional: No fevers, no weight gain or loss. Eyes: No discharge. No vision changes. HENT: No congestion, no sore throat, no ear pain. Cardiovascular: No chest pain, no palpitations. Respiratory: No shortness of breath, no wheezes, no cough. Gastrointestinal: No vomiting, no diarrhea. Right-sided abdominal pain. Genitourinary: No dysuria, no hematuria. Musculoskeletal: Normal range of motion. Skin: No rashes, no pruritis. Neurological: No dizziness, weakness, sensory change, speech change. Endo/Heme/Allergies: No bruising or bleeding. No polydipsia. Pysch: no suicidality, no anxiety, no insomnia. All other systems reviewed and are negative. 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 3 kids ( 21, 18. 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 does not use illicit drugs, recreational drugs IUD (intrauterine device) in place Never smoker What is your current living situation?: I presently have a place to live Problems where you live: no known problems In the past 12 months, utilities in danger of being shut off: no In past 12 months, lack of transportation kept you from medical appts, meetings, work, or getting things needed for daily living: no In the past 12 mos, have been you worried that your food would run out before you had money to buy more?: never true In the past 12 mos, the food you bought just didn't last and you didn't have money to buy more?: never true Smoking Status: Never smoker Do you use any of these nicotine containing products: None Second hand tobacco smoke exposure: No How often do you have a drink containing alcohol: monthly or less AUDIT-C Alcohol total score: 1 Non-prescribed substance use: denies use How often does anyone, including family, friends and others, physically hurt you: never How often does anyone, including family, friends and others, insult or talk down to you: never How often does anyone, including family, friends and others, threaten you with harm: never How often does anyone, including family, friends and others, scream or curse at you: never service: No Exam Narrative: Exam Narrative: Constitutional: Well-developed, well-nourished, no acute distress. HEENT: Normocephalic, atraumatic. Neck: Normal range of motion. Nontender. Supple. Heart: Regular. No murmurs. Normal rate. Intact distal pulses. Lungs: Clear to auscultation. No chest discomfort. No wheezes, rhonchi, or rales. Abdomen: Normal bowel sounds. Diffuse pain in the right upper abdomen. No flank pain. No rebound tenderness. Genitalia: Deferred. Back: No midline tenderness. Normal range of motion. Extremities: Normal range of motion. No injury. Skin: Intact. No rash. Warm. No erythema or pallor. Neurologic: No altered sensation. No weakness. Alert and oriented. Psychiatric: No suicidality. No anxiety or depression. No insomnia. Nursing notes and vitals signs are reviewed. Const: Vital Signs, click to edit/add: Vital Signs - 24 hr 04/28/24 12:08 Temperature 97.7 F Pulse Rate [Pulse Oximeter] 81 Respiratory Rate 18 Blood Pressure [Ri ght Upper Arm] 135/90 H Pulse Oximetry 97 Oxygen Delivery Me thod Room Air Course Vital Signs Vital signs: Initial Vital Signs Temperature 97.7 F 04/28/24 12:08 Temperature Source Temporal Artery Scan 04/28/24 12:08 Pulse Rate 81 04/28/24 12:08 Respiratory Rate 18 04/28/24 12:08 Blood Pressure 135/90 H 04/28/24 12:08 Blood Pressure Mean 105 04/28/24 12:08 Pulse Oximetry 97 04/28/24 12:08 Oxygen Delivery Method Room Air 04/28/24 12:08 Vital Signs Temperature 97.7 F 04/28/24 12:08 Pulse Rate 81 04/28/24 12:08 Respiratory Rate 18 04/28/24 12:08 Blood Pressure 135/90 H 04/28/24 12:08 Pulse Oximetry 97 04/28/24 12:08 Oxygen Delivery Method Room Air 04/28/24 12:08 Temperature 97.7 F 04/28/24 12:08 Pulse Rate 81 04/28/24 12:08 Respiratory Rate 18 04/28/24 12:08 Blood Pressure 135/90 H 04/28/24 12:08 Pulse Oximetry 97 04/28/24 12:08 Oxygen Delivery Method Room Air 04/28/24 12:08 Medications Administered Medications: Discontinued Medications Generic Name Dose Route Start Last Admin Trade Name Zoya PRN Reason Stop Dose Admin Sodium Chloride 500 mls @ 500 mls/hr 04/28/24 12:40 04/28/24 13:32 0.9 % Sodium Chloride 500 Ml IV 04/28/24 13:39 500 mls/hr .Q1H ONE Administration Medical Decision Making MDM Narrative Medical decision making narrative: This patient comes in reporting right-sided abdominal pain and concern about some blood that she has noted in the toilet over the past few days. An IV was established and labs are acquired. These all returned with normal results. Her hemoglobin is normal as are the rest of her labs. CT imaging of her abdomen and pelvis also shows no acute findings. I do note that she has some stool in the ascending colon that may be giving her some discomfort. The patient did have a colonoscopy a couple months ago and had some small amount of bleeding the day or 2 after this as she did have a couple small polyps removed at that time. Her bleeding stopped but now has resumed in the last few days. It seems that it is more likely related to hemorrhoids or anal fissure seeing that she had a otherwise normal colonoscopy just a few months ago. The patient is reassured with these results and is okay to be discharged home. She understands that if bleeding continues she should return or follow-up with her primary physician. Lab Data Labs: Lab Results 04/28/24 04/28/24 Range/Units 12:23 12:55 WBC 8.51 (4.50-11.00) K/uL RBC 4.21 (4.00-5.20) m/uL Hgb 12.8 (12.0-16.0) gm/dL Hct 39.3 (33.0-51.0) % MCV 93 (80-100) fL MCH 30 (26-34) pg MCHC 33 (32-36) gm/dL RDW Coeff of Larry 12.0 (11.5-15.5) % Plt Count 299 (140-440) K/uL Neut % (Auto) 71.0 (42.0-72.0) % Lymph % (Auto) 20.1 (20-44) % [place] % (Auto) 5.9 (0.0-11.0) % Eos % (Auto) 1.9 (0.0-7.0) % Baso % (Auto) 0.2 (0.0-3.0) % Neut # (Auto) 6.04 (1.7-7.0) K/uL Lymph # (Auto) 1.71 (0.90-2.90) K/uL [place] # (Auto) 0.50 (0.00-0.90) K/UL Eos # (Auto) 0.16 (0.00-0.50) K/uL Baso # (Auto) 0.02 (0.00-0.30) K/uL Abs Immat Gran (auto) 0.08 (0.00-0.30) K/uL Imm/Tot Granulo (auto) 0.9 % Sodium 139 (135-149) mmol/L Potassium 4.0 (3.6-5.1) mmol/L Chloride 104 (96-114) mmol/L Carbon Dioxide 27 (20-32) mmol/L Anion Gap 8 (7-15) mEq/L BUN 9 (5-24) mg/dL Creatinine 0.6 (0.5-1.5) mg/dL Estimated Creat Clear 100.55 Estimated GFR 118 ml/min Glucose 109 (60-115) mg/dL Calcium 9.0 (8.4-10.6) mg/dL Urine Color Light yellow (Yellow) Urine Appearance Clear (Clear) Urine pH 7.0 (5.0-8.5) Ur Specific [place] 1.015 (1.000-1.030) Urine Protein Negative (Negative) Urine Glucose (UA) Negative (Negative) Urine Ketones Negative (Negative) Urine Blood 2+ A (Negative) Urine Nitrite Negative (Negative) Urine Bilirubin Negative (Negative) Urine Urobilinogen 0.2 (0.2-1.0) Ur Leukocyte Esterase Negative (Negative) Urine RBC 2-5 A (0-2) Urine WBC 0-2 (0-5) Ur Squamous Epith Cells None (None-Few) Urine Bacteria None (None) Imaging Data CT scan - abdomen: Radiologist's impression: 1. Limited evaluation for subtle active gastrointestinal bleeding on this nondedicated single phase examination. 2. Small metallic hyperdense clips in the distal transverse colon, correlate with recent colonoscopy/procedural note. 3. Scattered colonic diverticulosis without CT evidence of acute diverticulitis. 4. Otherwise, no acute abdominopelvic pathology. Discharge Plan Discharge Clinical Impression: Abdominal pain, Bright red rectal bleeding Patient Disposition: Home, Self-Care Condition: Stable Additional Instructions: Regular use of a fiber additive is recommended. Follow-up with primary physician or return if worsening symptoms occur. Prescriptions: No Action metoprolol succinate 25 mg tablet extended release 24 hr 50 mg PO QDAY Qty: 180 3RF Rx Instructions: 2 tablets daily for palpitations and Blood pressure diclofenac sodium 75 mg tablet,delayed release (DR/EC) 75 mg PO BID Qty: 60 1RF fgfxlzbfqvgj-Gg-ucbx-minerals Tablet 1 tab PO QDAY levonorgestrel 20 mcg/24 hours (7 yrs) 52 mg intrauterine device 1 device intrauterine ONCE Rx Instructions: as a single dose valacyclovir 500 mg tablet 1,000 mg PO QDAY PRN (Reason: cold sores ) 5 Days Qty: 30 3RF Rx Instructions: two tablets daily x 5 days for cold sores PRN ( QTY= enough for 3 outbreaks) Follow Up/Referrals: Malena Aguayo PA-C [Primary Care Provider] - Stand Alone Forms: MyHealth Info Instructions
[2024-04-28 12:49] LABS: WBC Urine 0-2 (0-5)
--- OUTSIDE RECORDS SUMMARY | 2024-04-28 12:53 | XMS_ITS | Clinical Summary ---
Author Organization [facility] Address [place], [place] [address] Care Team Providers Care Green Building Architect Name Role Phone Malena Aguayo PA-C Primary Care Provider + [phone] Allergies No known active allergies Medications metoprolol [...] on file Legal Sex Female 5:25 AM GORING CUTTER Gender Identity Not on file Sexual Orientation [...] 157.5 cm (5' 2) 02/08/2023 12:46 PM GORING CUTTER Body Mass Index 35.39 02/08/2023 12:46 PM GORING CUTTER Plan of Treatment Health Maintenance Due Date [...] 16 Negative Negative 11/07/2023 2:30 PM CDT [facility] TYPE 18 Negative Negative 11/07/2023 2:30 PM CDT [facility] OTHER HIGH RISK TYPES Positive(A) Negative 11/07/2023 2:30 PM CDT [facility] Other (Cervical) 11/03/2023 10:45 AM CDT 11/04/2023 9:54 AM [facility] 11/07/2023 2:30 PM CDT Specimen is positive for the DNA of any one of, or combination of, the following high risk HPV types: 31, 33, 35, 39, 45, 51, 52, 56, 58, 59, 66, 68. HPV types 16 and 18 DNA were undetectable or below the pre-set threshold. Methodology: Riki Lloyd 4800 HPV Test Malena Aguayo PA-C MICROBIOLOGY Final Result [facility] [address] [place] [address], from Last 3 Months or Most Recently Relevant to Health Maintenance Insurance [employer] [facility] Care Teams Green Building Architect Relationship Specialty Start Date End Date Malena Aguayo PA-C [id number] [place] [address] PCP - General Emergency Medicine 04/09/22
[2024-04-28 13:08] LABS: Basophils Absolute Auto 0.02 K/uL (0.00-0.30); Basophils Percent Auto 0.2 % (0.0-3.0); Eosinophils Absolute Auto 0.16 K/uL (0.00-0.50); Eosinophils Percent Auto 1.9 % (0.0-7.0); Hematocrit 39.3 % (33.0-51.0); Hemoglobin* 12.8 gm/dL (12.0-16.0); Immature Granulocytes Abs Auto 0.08 K/uL (0.00-0.30); Immature Granulocytes Pct Auto 0.9 %; Lymphocytes Absolute Auto 1.71 K/uL (0.90-2.90); Lymphocytes Percent Auto 20.1 % (20-44); Mean Corpuscular HGB Conc 33 gm/dL (32-36); Mean Corpuscular Hemoglobin 30 pg (26-34); Mean Corpuscular Volume 93 fL (80-100); Monocytes Percent Auto 5.9 % (0.0-11.0); Neutrophils Absolute Auto 6.04 K/uL (1.7-7.0); Platelet Count* 299 K/uL (140-440); Red Blood Count 4.21 m/uL (4.00-5.20); White Blood Count* 8.51 K/uL (4.50-11.00)
[2024-04-28 13:14] LABS: Slide Review Reflex No
[2024-04-28 13:16] LABS: Chloride* 104 mmol/L (96-114)
[2024-04-28 13:17] LABS: Sodium* 139 mmol/L (135-149)
[2024-04-28 13:19] LABS: Creatinine* 0.6 mg/dL (0.5-1.5); Est. Creatinine Clearance* 100.55; Estimated Glomerular Filt Rate 118 ml/min
[2024-04-28 13:20] LABS: Anion Gap 8 mEq/L (7-15); Blood Urea Nitrogen* 9 mg/dL (5-24); Carbon Dioxide* 27 mmol/L (20-32); Glucose* 109 mg/dL (60-115)
[2024-04-28] MEDS: 0.9 % SODIUM CHLORIDE 500 ML 500 ML IV (13:32)
== END 2024-04-28 14:35 | disposition home or self-care (01) ==
PROVIDERS: Emergency Provider Emergency Medicine Emergency Medical Services; PCP Physician Assistant Medical
DX: R10.9 Unspecified abdominal pain (principal); K62.5 Hemorrhage of anus and rectum
CPT/HCPCS: 36415; 74177; 80048; 81001; 85025; 99284; J7030; Q9967

== ENCOUNTER 2024-06-21 11:37 | Outpatient (CLI) | payer BC, SELFPAY | END 2024-06-21 11:38 | disposition home or self-care (01) | LOC: NFLDREF 06-23 21:39 | PROVIDERS: PCP Physician Assistant Medical; Referring Provider Physician Assistant Medical; Visit Provider Nurse Practitioner | DX: N30.01 Acute cystitis with hematuria (principal); N89.8 Other specified noninflammatory disorders of vagina | CPT/HCPCS: 87086 ==

== ENCOUNTER 2024-09-06 15:22 | Outpatient (CLI) | payer BC, SELFPAY | END 2024-09-06 15:23 | disposition home or self-care (01) | PROVIDERS: PCP Physician Assistant Medical; Visit Provider Emergency Medicine | DX: R20.2 Paresthesia of skin (principal) | CPT/HCPCS: 82607; 84443 ==

== ENCOUNTER 2024-10-24 09:26 | Outpatient (CLI) | payer BC, SELFPAY | END 2024-10-24 09:27 | disposition home or self-care (01) | LOC: NFLDREF 10-25 02:59 | PROVIDERS: PCP Physician Assistant Medical; Referring Provider Physician Assistant Medical; Visit Provider Emergency Medicine | DX: R31.9 Hematuria, unspecified (principal) | CPT/HCPCS: 87086 ==

== ENCOUNTER 2024-12-11 09:15 | Outpatient (CLI) | payer BC, SELFPAY ==
--- NOTE | 2024-12-11 10:51 | P.ANES_ITS ---
Anesthesia Charges Start Date/Time Anesthesia Start Date: 12/11/24 Anesthesia Start Time: 10:16 Stop Date/Time Anesthesia Stop Date: 12/11/24 Anesthesia Stop Time: 10:49 Coding CPT Codes CPT Codes: ANES LWR INTST NDSC NOS - 65271 ([id number]) P3 - PATIENT W/SEVERE SYS DISEASE, QX - TIE MAKER SVC W/ MD MED DIRECTION, QK - RN PLASTICS 2-4 CNCRNT ANES PROC
--- NOTE | 2024-12-11 10:51 | W.ANESCHARGE ---
Anesthesia Charges Start Date/Time Anesthesia Start Date: 12/11/24 Anesthesia Start Time: 10:16 Stop Date/Time Anesthesia Stop Date: 12/11/24 Anesthesia Stop Time: 10:49 Coding CPT Codes CPT Codes: ANES LWR INTST NDSC NOS - 02597 ([id number]) P3 - PATIENT W/SEVERE SYS DISEASE, QX - TUBING MILL OPERATOR SVC W/ MD MED DIRECTION, QK - FIRE INVESTIGATION MANAGER 2-4 CNCRNT ANES PROC
--- NOTE | 2024-12-11 11:02 | P.ANES_ITS ---
Anesthesia Charges Start Date/Time Anesthesia Start Date: 12/11/24 Anesthesia Start Time: 10:16 Stop Date/Time Anesthesia Stop Date: 12/11/24 Anesthesia Stop Time: 10:49 Coding CPT Codes CPT Codes: ANES LWR INTST NDSC NOS - 33938 ([id number]) QK - PARTITION ASSEMBLER 2-4 CNCRNT ANES PROC, QX - FAMILY PARTNER SVC W/ MED DIRECTION, P3 - PATIENT W/SEVERE SYS DISEASE
--- NOTE | 2024-12-11 11:02 | W.ANESCHARGE ---
Anesthesia Charges Start Date/Time Anesthesia Start Date: 12/11/24 Anesthesia Start Time: 10:16 Stop Date/Time Anesthesia Stop Date: 12/11/24 Anesthesia Stop Time: 10:49 Coding CPT Codes CPT Codes: ANES LWR INTST NDSC NOS - 70938 ([id number]) QK - TELEVISION SERVICE ENGINEER 2-4 CNCRNT ANES PROC, QX - WATER TAXI CAPTAIN SVC W/ MED DIRECTION, P3 - PATIENT W/SEVERE SYS DISEASE
== END 2024-12-11 09:16 | disposition home or self-care (01) ==
LOC: OP CLINIC 09:16
PROVIDERS: PCP Physician Assistant Medical; Visit Provider Surgery
DX: Z12.11 Encounter for screening for malignant neoplasm of colon (principal); Z86.0100 Personal history of colon polyps, unspecified; D12.8 Benign neoplasm of rectum; K64.8 Other hemorrhoids; K64.4 Residual hemorrhoidal skin tags
CPT/HCPCS: 00811; 00812; 45380; 45385; 45398; 88304; 88305; J2704

== ENCOUNTER 2024-12-11 18:30 | Day surgery (SDC) | payer BC, SELFPAY ==
[2024-12-11] VITALS (15 sets, daily range): BP systolic 105–133; BP diastolic 51–90; PULSE 50–81; RESP 12–18; TEMP 36.2–36.6; O2SAT 95–100
[2024-12-11 19:17] LABS: Ur HCG Qualitative* Negative (Negative)
[2024-12-11] MEDS: LACTATED RINGERS 1000 ML 1,000 ML 100 ML IV (20:00)
[2024-12-11] MEDS: PIPERACILLIN/TAZOBACTAM 3.375 GM INJ IVPB (20:10)
[2024-12-11] MEDS: BUPIVACAINE 0.5% 30 ML 10 ML INJECTION (20:24)
[2024-12-11] MEDS: BUPIVACAINE LIPOSOME 133 MG/10 ML INJ INFILTRATI (20:24)
--- NOTE | 2024-12-11 20:40 | PM.GSPRC ---
Operative Note Date of procedure: 12/11/24 Pre-op diagnosis: Internal hemorrhoids with necrosis Post-op diagnosis: Same Type of Procedure: 1. Exam under anesthesia 2. Removal of hemorrhoid band x2 3. Single quadrant Hemorrhoidectomy Indications: Patient is a 39-year-old female who underwent placement of 3 hemorrhoid bands on the internal hemorrhoidal tissue during her colonoscopy. Patient had a significant amount of discomfort following the placement of these bands. One was removed in clinic, with patient not tolerating the procedure well so the recommendation was for further examination under anesthesia. Risks and benefits were discussed at length the patient. Risks included, but were not limited to: Bleeding, infection, risk of damage to surrounding structures and possible need for additional procedures. All questions and concerns were addressed with patient agreeing to proceed. Procedure Description: The patient was brought to the Operating Room and a formal timeout for patient safety was performed in accordance with hospital protocol, thereby correctly matching this patient with their diagnosis and intended procedure. A spinal anesthetic was administered, with MAC sedation by Anesthesia. The patient was then transferred to the Operating Room table, placed in the prone jackknife position with appropriate bumps and padding. Care was taken to ensure the genitalia and breasts were properly positioned on the hip and chest rolls, respectively. The shoulders and arms were positioned with care to protect the brachial plexus. The buttocks were taped laterally. A sterile prep and drape was done in the usual fashion. 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 Just underneath this was an area of tissue necrosis, which correlated with the previous band that had been removed. Just lateral to this area was another section of banded mucosal tissue. The band was removed without any difficulty. The tissue that had been involved with the 2 bands was necrotic in appearance so the decision was made for removal. An elliptical incision was made with a needle-tip electrocautery just above the necrotic tissue, with careful dissection of the hemorrhoid complex in the plane between the internal anal sphincter and the submucosal vascular plexus. The tissue was removed with the LigaSure device. The specimen was then passed off to be sent for pathology analysis. The wound was closed in a running locked manner starting proximally at the apex with 4-0 chromic suture, coming out distally and then running back in a simple fashion before tying down at the apex. Hemostasis was excellent. Another band was identified left lateral. This held only a small amount of tissue and was easily removed. Some bruising of the underline mucosa, but no evidence of necrosis. No excision was performed. A mixture of 0.5% Marcaine and Exparel was then used to anesthetize circumferentially just outside the anal sphincter muscle. A bilateral pudendal nerve block was also performed. The patient tolerated procedure well. There were no apparent complications. Instrument, sponge, and needle counts were correct at the end of the case. Findings: Hemorrhoid banding of internal hemorrhoid tissue present, these were removed with removal of 1 segment necrotic tissue and primary closure by chromic suture. Anesthesia: MAC and spinal Surgeon: Kiley Norman MD Estimated blood loss (mL): 5 Additional Specimen Information: Hemorrhoidal tissue Condition: stable Disposition: PACU
--- NOTE | 2024-12-11 20:41 | P.ANES_ITS ---
Anesthesia Charges Start Date/Time Anesthesia Start Date: 12/11/24 Anesthesia Start Time: 20:00 Stop Date/Time Anesthesia Stop Date: 12/11/24 Anesthesia Stop Time: 20:42 Coding CPT Codes CPT Codes: ANESTH ANORECTAL SURGERY - 65850 ([id number]) P2 - PATIENT W/MILD SYST DISEASE, QZ - ELECTRICAL EQUIPMENT TESTER SVC W/O APPLIANCE PARTS COUNTER CLERK BY
--- NOTE | 2024-12-11 20:41 | W.ANESCHARGE ---
Anesthesia Charges Start Date/Time Anesthesia Start Date: 12/11/24 Anesthesia Start Time: 20:00 Stop Date/Time Anesthesia Stop Date: 12/11/24 Anesthesia Stop Time: 20:42 Coding CPT Codes CPT Codes: ANESTH ANORECTAL SURGERY - 40569 ([id number]) P2 - PATIENT W/MILD SYST DISEASE, QZ - TICKET TAKER SVC W/O TRAIN RESERVATION CLERK BY
--- NOTE | 2024-12-11 20:54 | W.PM.H&PU ---
History & Physical Update History & Physical Update H&P Reviewed and patient assessed: No changes noted H&P Updates: Please see consultation note from today. Please see H&P from earlier this month.
[2024-12-11] MEDS: SODIUM CHLORIDE 0.9 % (FLUSH) 10 ML SYRINGE IVF (22:35)
[2024-12-11] MEDS: HYDROCODONE-ACETAMIN 5-325 MG 1 TAB PO (22:50)
[2024-12-12 00:45] VITALS: BP 115/56; PULSE 74
[2024-12-12 01:45] VITALS: BP 95/49; PULSE 71; RESP 16; O2SAT 96
[2024-12-12 02:45] VITALS: BP 117/62; PULSE 79; RESP 16; O2SAT 95
[2024-12-12] MEDS: HYDROCODONE-ACETAMIN 5-325 MG 1 TAB PO ×2 (03:48→09:00)
--- NOTE | 2024-12-12 06:19 | PC.NURSE ---
The patient is pleasant, post op routine was completed, VSS. Reported pain @ 2/10 and requested medication for management to help stay on top of the patients pain. Up ad bals, No other concerns were noted by the patient overnight to RN. Kimmie HINES BSN
[2024-12-12 08:50] VITALS: BP 125/74; PULSE 76; RESP 16; TEMP 36.4; O2SAT 99
[2024-12-12] MEDS: SENNOSIDES 1 TAB TABLET PO (09:00)
[2024-12-12] MEDS: METOPROLOL SUCCINATE (XL) 25 MG TAB 50 MG PO (09:01)
== END 2024-12-12 11:11 | disposition home or self-care (01) ==
LOC: OR 18:43 → MEDSURG 18:43
PROVIDERS: PCP Physician Assistant Medical; Visit Provider Surgery
PROC: (CPT 46255; principal; 2024-12-11 20:00)
DX: K64.8 Other hemorrhoids (principal); K60.1 Chronic anal fissure; Z86.0100 Personal history of colon polyps, unspecified
CPT/HCPCS: 46255; 00902; 81025; A9270; J0665; J0666; J1100; J1171; J1885; J2250; J2405; J2543; J2704; J3010; J7120

== ENCOUNTER 2025-02-03 06:42 | Emergency (ER) | payer BC, SELFPAY ==
--- OUTSIDE RECORDS SUMMARY | 2025-02-03 06:46 | XMS_ITS | Clinical Summary ---
Author Organization [employer] [facility] Address [address] [place] [address] Care Team Providers Care Knitting Machine Tender Name Role Phone Malena Aguayo PA-C Primary Care Provider + [phone] Allergies No known active allergies Medications metoprolol succinate (TOPROL XL) 25 mg Sustained-Relea se tablet TAKE ONE TABLET BY MOUTH DAILY for palpitations and blood pressure* 3 Active lidocaine 5 % ointmentIndicat ions:Anal fissure Apply to anal fissure 2-3 times per day as needed pain. 1 g 1 4 Active Encounters Date Type Department Care Team Description 12/12/2024 Lab Requisition [facility] [phone] Kiley Norman MD 12/12/2024 Lab Requisition [facility] [phone] Kiley Norman MD from Last 3 Months Social History Tobacco [...] on file Legal Sex Female 5:25 AM [employer] Gender Identity Not on file Sexual Orientation [...] 157.5 cm (5' 2) 02/08/2023 12:46 PM [employer] Body Mass Index 35.39 02/08/2023 12:46 PM [employer] Plan of Treatment Health Maintenance Due Date Last Done Comments Tetanus booster 1996 Depression screening for age 12+ 1997 HIV for age 15-65 2000 Hepatitis C screening for age 18-79 08/20/2003 Hepatitis B series for 19+ (1 of 3 - 19+ 3-dose series) 2004 HPV series for age 9-45 (1 - 3-dose SCDM series) 2012 BMI (ht and wt on same day) for age 18+ 02/09/2024 02/08/2023 Influenza Vaccine (#1) 2024 Pap test for age 21-65 11/02/2026 , 11/03/2023, 05/15/2019, Additional history exists RSV vaccine for adults or (1 - 1-dose 75+ series) 2060 Pneumococcal series for age 6-49 Aged Out No longer eligible based on patient's age to complete this topic Procedures Procedure Name Priority Date/Time Associated Diagnosis Comments LAB TRACKING EVENT Routine 12/12/2024 12 :00 PM CDT PATH TISSUE EXAM Routine 12/11/2024 8:29 PM CDT LAB TRACKING EVENT Routine 12/11/2024 10 :32 AM CDT PATH TISSUE EXAM Routine 12/11/2024 10:3 2 AM CDT HPV HIGH RISK Routine 11/03/2023 10:45 AM CDT from Last 3 Months or Most Recently Relevant to Health Maintenance Results * LAB TRACKING EVENT (12/12/2024 12:00 PM CDT) Only the most recent of2 resultswithin the time period is included. Other (Other) Client Collect / Unknown 12/12/2024 12:00 PM CDT 12/12/2024 2:23 PM CDT Kiley Norman MD LAB BILL ONLY Final Re sult [facility] [address] [place] [address], [place] * PATH TISSUE EXAM (12/11/2024 8:29 PM CDT) Only the most recent of2 resultswithin the time period is included. Case Report Pathology Report Case: [id number] Authorizing Provider: Kiley Norman MD Collected: 12/11/20242028 Ordering Location: [facility] Received: 12/12/2024 1623 Pathologist: Herminio Hernandez MD Specimen: Hemorrhoids 12/14/2024 1:52 PM CDT [facility] Final Diagnosis A) ANUS, HEMORRHOIDS, HEMORRHOIDECTOMY : 1. Benign anal hemorrhoidal tissue 2. Negative for viral change, dysplasia and malignancy 12/14/2024 1:52 PM CDT [facility] at 1352 CDT Clinical Information Hemorrhoid 12/14/2024 1:52 PM CDT [facility] Gross Description A) Received in formalin, labeled with the patient's name and hemorrhoidal tissue, is a 2.0 x 0.5 x 0.5 cm cornejo-purple, rubbery portion of mucocutaneous tissue. Sectioning reveals fibrous tissue with intervening dilated vasculature. The specimen is bisected and entirely submitted in 1 cassette. JUAN 12/13/2024 12/14/2024 1:52 PM CDT [facility] Microscopic Description The final diagnosis is based on microscopic examination of appropriate sections of all specimens. 12/14/2024 1:52 PM CDT [facility] Additional Information Interpreted at [facility] - [address] [facility] [address], [place] [address] 12/14/2024 1:52 PM CDT [facility] Other HEMORRHOID TISSUE SPECIMEN / Unknown 12/11/2024 8:29 PM CDT 12/12/2024 4:27 PM CDT us Kiley Norman MD PATHOLOGY/CYTOLOGY Final Result Performing Organization Address City/[facility]/ZIP Co de Phone Number [facility] [address] [address], * (ABNORMAL) HPV HIGH RISK (11/03/2023 10:45 AM CDT) TYPE 16 Negative Negative 11/07/2023 2:30 PM CDT [facility] TYPE 18 Negative Negative 11/07/2023 2:30 PM CDT [facility] OTHER HIGH RISK TYPES Positive(A) Negative 11/07/2023 2:30 PM CDT [facility] Other (Cervical) 11/03/2023 10:45 AM CDT 11/04/2023 9:54 AM CDT Narrative [facility] - 11/07/2023 2:30 PM CDT Specimen is positive for the DNA of any one of, or combination of, the following high risk HPV types: 31, 33, 35, 39, 45, 51, 52, 56, 58, 59, 66, 68. HPV types 16 and 18 DNA were undetectable or below the pre-set threshold. Methodology: Riki Lloyd 4800 HPV Test us Malena Aguayo PA-C MICROBIOLOGY Final Result Performing Organization Address City/[facility]/ZIP Co de Phone Number [facility] [address] [place] [address], from Last 3 Months or Most Recently Relevant to Health Maintenance Insurance [facility] Care Teams Knitting Machine Tender Relationship Specialty Start Date End Date Malena Aguayo PA-C [address] [place] [address] PCP - General Emergency Medicine 04/09/22
[2025-02-03 06:47] VITALS: BP 143/100; PULSE 89; RESP 18; TEMP 36.1; O2SAT 97; BMI 37.3
--- NOTE | 2025-02-03 07:15 | ED.FEMALEGU ---
HPI - Female Genitourinary General Time Seen by Provider: 07:15 Date Seen: 02/03/25 Chief complaint: Urogenital Problems, Female Stated complaint: blood in urine, painful urination Time Seen by Provider: 02/03/25 07:15 Source: patient Mode of arrival: ambulatory History of Present Illness HPI Narrative: Hanna is a 39-year-old female who presents to the emergency department for evaluation of urinary symptoms. Patient reports that she woke up this morning around 5:30 a.m. with lower urinary symptoms. Patient reports urinary frequency, urgency, and dysuria. Patient reports symptoms similar to prior urinary tract infections in the past. Patient states she took 4 Azo's this morning with no improvement of symptoms. Denies any fever, chills, nausea, vomiting, abdominal pain, back pain. Patient also complains of itchy, watery, crusty eyes and is concerned she may have pinkeye. 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 Patient does not were glasses or contact lenses. No other complaints. Related Data Home Medications ?Medication ?Instructions ?Recorded ?Confirmed levonorgestrel 1 device intrauterine ONCE 10/13/21 01/30/25 vatceqivpyxz-Gb-xlcr-minerals 1 tab PO QDAY 10/13/21 01/30/25 valacyclovir 500 mg tablet mg PO 01/30/25 01/30/25 Previous Rx's ?Medication ?Instructions ?Recorded diclofenac sodium 75 mg 75 mg PO BID #60 tabs 01/26/24 tablet,delayed release metoprolol succinate 25 mg 50 mg (2 x 25 mg) PO QDAY #180 tabs 12/20/24 tablet,extended release 24 hr polymyxin B sulfate 10,000 1 drp ophthalmic (eye) Q3H 7 days 02/03/25 unit-trimethoprim 1 mg/mL eye drops #10 mL Allergies Allergy/AdvReac Type Severity Reaction Status Date / Time No Known Drug Allergies Allergy Verified 01/30/25 14:38 Review of Systems Narrative: Past medical history, past surgical history, medications, allergies, family history, and social history were reviewed with the patient. No additional pertinent items. A medically appropriate review of systems was performed with pertinent positives and negatives noted in HPI, all other systems negative. 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 3 kids ( 21, 18. 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 does not use illicit drugs, recreational drugs IUD (intrauterine device) in place Never smoker What is your current living situation?: I presently have a place to live Problems where you live: no known problems In the past 12 months, utilities in danger of being shut off: no In past 12 months, lack of transportation kept you from medical appts, meetings, work, or getting things needed for daily living: no In the past 12 mos, have been you worried that your food would run out before you had money to buy more?: never true In the past 12 mos, the food you bought just didn't last and you didn't have money to buy more?: never true Smoking Status: Never smoker Do you use any of these nicotine containing products: None Second hand tobacco smoke exposure: No How often do you have a drink containing alcohol: monthly or less AUDIT-C Alcohol total score: 1 Non-prescribed substance use: denies use How often does anyone, including family, friends and others, physically hurt you: never How often does anyone, including family, friends and others, insult or talk down to you: never How often does anyone, including family, friends and others, threaten you with harm: never How often does anyone, including family, friends and others, scream or curse at you: never service: No Exam Narrative: Exam Narrative: General: Afebrile, no acute distress HEENT: Normocephalic, atraumatic, conjunctiva normal. MMM Neck: non-tender, supple Cardio: regular rate. regular rhythm Resp: Normal work of breathing, no respiratory distress, lungs clear bilaterally, no wheezing, rhonchi, rales Chest/Back: no visual signs of trauma, no midline tenderness, no CVA tenderness Abdomen: soft, non distension, no tenderness, no peritoneal signs Neuro: alert and fully oriented. CN II-XII grossly intact. Grossly normal strength and sensation in all extremities. MSK: no deformities. Normal range of motion Integumentary/Skin: no rash visualized, normal color Psych: normal affect, normal behavior Const: Vital Signs, click to edit/add: Vital Signs - 24 hr 02/03/25 06:47 Temperature 97.0 F L Pulse Rate [Left P ulse Oximeter] 89 Respiratory Rate 18 Blood Pressure [Ri ght Upper Arm] 143/100 H Pulse Oximetry 97 Oxygen Delivery Me thod Room Air Course Vital Signs Vital signs: Initial Vital Signs Temperature 97.0 F L 02/03/25 06:47 Temperature Source Temporal Artery Scan 02/03/25 06:47 Pulse Rate 89 02/03/25 06:47 Pulse Rhythm Regular 02/03/25 06:47 Respiratory Rate 18 02/03/25 06:47 Blood Pressure 143/100 H 02/03/25 06:47 Blood Pressure Mean 114 H 02/03/25 06:47 Blood Pressure Position Sitting 02/03/25 06:47 Pulse Oximetry 97 02/03/25 06:47 Oxygen Delivery Method Room Air 02/03/25 06:47 Vital Signs Temperature 97.0 F L 02/03/25 06:47 Pulse Rate 89 02/03/25 06:47 Respiratory Rate 18 02/03/25 06:47 Blood Pressure 143/100 H 02/03/25 06:47 Pulse Oximetry 97 02/03/25 06:47 Oxygen Delivery Method Room Air 02/03/25 06:47 Temperature 97.0 F L 02/03/25 06:47 Pulse Rate 89 02/03/25 06:47 Respiratory Rate 18 02/03/25 06:47 Blood Pressure 143/100 H 02/03/25 06:47 Pulse Oximetry 97 02/03/25 06:47 Oxygen Delivery Method Room Air 02/03/25 06:47 MDM - Female Genitourinary MDM Narrative Medical decision making narrative: Hanna is a 39-year-old female who presents to the emergency department for evaluation of urinary symptoms. Upon arrival patient is nontoxic appearing, afebrile, in distress. Patient here with lower urinary symptoms concerning for urinary tract infection with onset earlier this morning. Per chart review patient's most recent urinary culture on 10/24/2024 grew out mixed robert. Urine culture back on 12/20/2023 positive for E coli with no resistance. I reviewed urinalysis which demonstrates +RBC, +WBC, moderate bacteria, negative test. Urine culture pending. Given patient's urinary symptoms, urinalysis, will treat with antibiotics. Patient given a 5 day course of Macrobid. Patient with no fever, nausea, vomiting, flank pain, is overall nontoxic appearing. Patient feels comfortable with this plan as well as continue supportive care. Patient also reports concern for developing conjunctivitis, does not were contact lenses or glasses, currently works at the school. At this time will discharge with a prescription for ophthalmic drops. Recommend close outpatient follow-up with the primary care provider. Strict return precautions discussed. Patient understands and agrees the plan. Medical Records Attestation: I reviewed the patient's medical records. Lab Data Attestation: I reviewed the patient's lab results. Labs: Lab Results 02/03/25 02/03/25 02/03/25 Range/Units 06:50 06:50 06:50 Urine Color Cancelled Urine Appearance Cancelled Urine pH Cancelled Ur Specific Sherman Cancelled Urine Protein Cancelled Urine Glucose (UA) Cancelled Urine Ketones Cancelled Urine Blood Cancelled Urine Nitrite Cancelled Urine Bilirubin Cancelled Urine Urobilinogen Cancelled Ur Leukocyte Esterase Cancelled Urine RBC Cancelled 25-50 A Urine WBC Cancelled >100 A Urine WBC Clumps Cancelled Ur Squamous Epith Cells Cancelled [employer] Biurate Crystals Calcium Carbonate Cryst Calcium Phosphate Cryst Calcium Oxalate Crystal Cystine Crystals Uric Acid Crystals Triple Phos Crystals Sulfur Crystals Cholesterol Crystals Tyrosine Crystals Hippuric Acid Crystals Amorphous Sediment Other Sediment Urine Bacteria Fatty Casts Hyaline Casts Fine Granular Casts Coarse Granular Casts Waxy Casts RBC Casts WBC Casts Other Casts Urine Starch Urine Mucus Urine Trichomonas Urine Yeast Urine HCG, Qual 02/03/25 02/03/25 02/03/25 Range/Units 06:50 06:50 06:50 Urine Color Urine Appearance Urine pH Ur Specific Sherman Urine Protein Urine Glucose (UA) Urine Ketones Urine Blood Urine Nitrite Urine Bilirubin Urine Urobilinogen Ur Leukocyte Esterase Urine RBC Urine WBC Urine WBC Clumps Ur Squamous Epith Cells None Bobby Biurate Crystals Cancelled Calcium Carbonate Cryst Cancelled Calcium Phosphate Cryst Cancelled Calcium Oxalate Crystal Cancelled Cystine Crystals Cancelled Uric Acid Crystals Cancelled Triple Phos Crystals Cancelled Sulfur Crystals Cancelled Cholesterol Crystals Cancelled Tyrosine Crystals Cancelled Hippuric Acid Crystals Cancelled Amorphous Sediment Cancelled Other Sediment Cancelled Urine Bacteria Cancelled Moderate A Fatty Casts Cancelled Hyaline Casts Cancelled Fine Granular Casts Cancelled Coarse Granular Casts Cancelled Waxy Casts Cancelled RBC Casts Cancelled WBC Casts Cancelled Other Casts Cancelled Urine Starch Cancelled Urine Mucus Cancelled Urine Trichomonas Cancelled Urine Yeast Cancelled Urine HCG, Qual Cancelled Negative Discharge Plan Discharge Clinical Impression: Urinary tract infection Patient Disposition: Home, Self-Care Condition: Stable Instructions: Urinary Tract Infection in Women (ED), Conjunctivitis (ED) Additional Instructions: Please follow-up with your primary care provider in the next 3-5 days for further evaluation and follow-up. Please call to schedule appointment. Please alternate taking Tylenol 1000 mg and ibuprofen 600 mg every 6 hours as needed for fever, pain. Please drink plenty of water/cranberry juice. Please take antibiotics twice daily as directed. Please use eyedrops as directed 1 drop both eyes every 3 hours while awake (do not take more than 6 drops every 24 hours). Please wash your hands and do not talk/rubbing her eyes. Please return to the emergency department if you develop persistent high fever, severe pain, persistent vomiting, worsening symptoms. It was a pleasure taking care of you today. We hope you feel better soon. Prescriptions: New polymyxin B sulf-trimethoprim 10,000 unit- 1 mg/mL drops 1 drp ophthalmic (eye) Q3H 7 Days Qty: 10 0RF Rx Instructions: while awake; do not exceed 6 doses in 24 hours No Action valacyclovir 500 mg tablet PO diclofenac sodium 75 mg tablet,delayed release (DR/EC) 75 mg PO BID Qty: 60 1RF cbfiihkospmu-Nr-vutn-minerals Tablet 1 tab PO QDAY levonorgestrel 20 mcg/24 hours (7 yrs) 52 mg intrauterine device 1 device intrauterine ONCE Rx Instructions: as a single dose metoprolol succinate 25 mg tablet extended release 24 hr 50 mg PO QDAY Qty: 180 0RF Rx Instructions: 2 tablets daily for palpitations and Blood pressure Follow Up/Referrals: Malena Aguayo PA-C [Physician Cardiac Exercise Specialist, Family Practice] Stand Alone Forms: Chemo Bean[employer] Info Instructions
[2025-02-03 07:17] LABS: Ur HCG Qualitative* Negative (Negative)
--- OUTSIDE RECORDS SUMMARY | 2025-02-03 07:35 | XMS_ITS | Data Portability ---
Author Organization [facility] Address [address] [place] [address] Care Team Providers Care Drug Abuse Resistance Education Officer Name Role Phone MARGUERITE GONZALEZ Primary Care Provider Assessment No assessment recorded. Plan of Treatment Reminders Order Date Submit Date Provider Last Modified By Organization Details Last Modified Time Details Appointments None recorded. Lab urinalysis , dipstick 2020 021 [email or web address] Not available 14:46:28 urinalysis , dipstick 2020 CLAUDE Not available 09:37:36 Referral None recorded. Procedures bladder scan (PROC) 2020 CLAUDE Not available 09:37:11 Surgeries None recorded. Imaging None recorded. Medication Orders tamsulosin 0.4 mg capsule [address] [id number], [id number], [place], [address], 14:32:49 Patient TargetsNo targets recorded. Patient Instructions Encounter Date Encounter Id Patient Instructions Last Modified By Organization Details Last Modified Time 06/13/2020 [id number] will send urine for pathnostic, try tamsulosin for the urethral sx's.plan recheck in one month/ with CT urogram [email or web address] Not available 06/13/2020 14:35:06 07/07/2020 [id number] doing well with tamsulosin, will continue on this until refills gone, rtc if still sx's at that point. [email or web address] Not available 07/07/2020 15:10:27 Reason for Referral None Reported. Results Created Date Observation Date Name Description Value Unit Range Abnormal Flag Note LastModifiedBy Organization Detail LastModifiedTime 07/08/19 21 07/07/2020 urina lysis , dipst ick Color-Status Yellow Not Available [facility] [address], [place], [address], 07/07/2020 14:45:09 07/08/19 21 07/07/2020 urina lysis , dipst ick Glucose-Stat us Negati ve Not Available [facility] [address], [place], [address], 07/07/2020 14:45:09 07/08/19 21 07/07/2020 urina lysis , dipst ick Bilirubin-St atus Negati ve Not Available [facility] [address], [place], [address], 07/07/2020 14:45:09 07/08/19 21 07/07/2020 urina lysis , dipst ick Ketones-Stat us Negati ve Not Available [facility] [address], [place], [address], 07/07/2020 14:45:09 07/08/19 21 07/07/2020 urina lysis , dipst ick Nitrates-Sta tus negati ve Not Available [facility] [address], [place], [address], 07/07/2020 14:45:09 07/08/19 21 07/07/2020 urina lysis , dipst ick Blood-Status Modera te Not Available [facility] [address], [place], [address], 07/07/2020 14:45:09 07/08/19 21 07/07/2020 urina lysis , dipst ick Leuko-Status Negati ve Not Available [facility] [address], [place], [address], 07/07/2020 14:45:09 06/18/19 21 06/13/2020 bladd er [...] urogr am No observ ation record ed. [email or web address] Not Available 07/09 16:07:42 Result Notes None recorded. Procedures Surgical History Date Name Laterality Status Provider Name and Address Organization Details Recorded Time Bladder Scan completed Lam Leal [facility] 07/07/2020 14:45:03 Imaging Results None recorded. Procedure Notes None recorded. Medical Equipment None [...] Updated DateTime 06/13/2020 157.48 cm 31.1 kg/m2 04157.7 g Alec SANCHEZ - [facility] 06/13/2020 14:02:26 Date Recorded Body height Body mass index (BMI) Body weight Provider Name and Address Organization Details Last Updated DateTime 07/07/2020 157.48 cm 31.1 kg/m2 95848.7 g Margarito Simmskarlene [facility] 07/07/2020 14:35:32 Social History Question Answer Notes LastModified by Organizat ion Details LastModified Time Tobacco Smoking Status Never Smoker Alec edouard [facility] 06/13/2020 14:03:50 What Is Your Level Of Caffeine Consumption? None Information not available 06/13/2020 How Much Tobacco Do You Chew? None [email or web address] Information not available 07/07/2020 Recreational Drug Use No Information not available 06/13/2020 Marital Status Single [email or web address] Informatio n not available 06/13/2020 What Was The Date Of Your Most Recent Tobacco Screening? 06/13/2020 [email or web address] Information not available 06/13/2020 Are You Sexually Active? No [email or web address] Information not available 06/13/2020 Sex: Unknown Functional Status Question Answer Note LastModified by Organization D etails LastModified Time What is your level of alcohol consumption? None Information not available 06/13/2020 Mental Status None recorded. Family History Relationship Description Onset Age of this Age Resolved Age Notes LastModified by Organization Details LastModified Time Father No current problems or disability [email or web address] Not available 06/13 14:03:39 Mother No current problems or disability [email or web address] Not available 06/13 14:03:39 Medical History Condition Response Other N High Blood Pressure N Kidney Stones N Lung Disease N Depression N GERD/Acid Reflux N Sexually Transmitted Infection N Diabetes N Bleeding Disorder N Cancer N High [...] Diagnosis SNOMED-CT Code Diagnosis ICD10 Code Diagnosis IMO Codes Diagnosis Note [id number] Sebastián Clayton MD [facility] [address] [address] 06/13/2020 13:45:12 06/16/2020 09:45:32 Microscopic hematuria [id number] R31.29 Recurrent urinary tract infection N39.0 Urinary tr act infectious disease 02249449 N39.0 [id number] Sebastián Clayton MD [facility] [address] [address] 07/07/2020 14:22:53 07/08/2020 14:53:32 Recurrent urinary tract infection [id number] N39.0 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 Health Concerns Section Related Observation LastModified by Organization Detai ls LastModified Time None Recorded Concern Status LastModified by Organization Details LastModified Time None Recorded Advance Directives Directive None Recorded Payers Insurance Date Sequence Insurance Name Policy Number Policy Rojas Covered Member ID Rojas Member ID Guarantor Name 06/13/2020 1 [place] - [place] [facility] Leub[facility] [id number] Hanna L Leubner 06/13/2020 1 [place] Hanna L Leubner [id number] Hanna L Leubner 06/13/2020 2 [place] Hanna L Leubner [id number] Hanna L Leubner 06/23/2021 1 [place] [facility] Hanna L Leubner [id number] Hanna L Leubner Notes Date Note [...] Sebastián Clayton MD [address], [place], [address], [facility] 06/13/2020 15:37:29 07/07/2020 text/html follow up UTI and urethritis. taking tamsulosin and tolerates it well, helping a lot with her voiding sx's. Had CT urogram today. looks OK on first view, will review formal read when available. Sebastián Clayton MD [address] [place] [address],[address], [place], [address], [facility] 07/07/2020 15:10:50 OBGyn Episode No OBEpisode recorded.
== END 2025-02-03 07:42 | disposition home or self-care (01) ==
PROVIDERS: Orthopaedic Surgery; Emergency Provider Emergency Medicine; PCP Nurse Practitioner Family
DX: N39.0 Urinary tract infection, site not specified (principal); R35.0 Frequency of micturition
CPT/HCPCS: 81001; 81015; 81025; 87086; 99283; 99284

== ENCOUNTER 2025-02-11 08:31 | Outpatient (CLI) | payer BC, SELFPAY ==
--- NOTE | 2025-02-11 08:45 | CRLHL7_ITS ---
For Patients: As a result of the Century Cures Act, medical imaging exams and procedure reports are released immediately into your electronic medical record. You may view this report before your referring provider. If you have questions, please contact your health care provider. BILATERAL DIGITAL DIAGNOSTIC MAMMOGRAM WITH TOMOSYNTHESIS AND COMPUTER-AIDED DETECTION BILATERAL BREAST ULTRASOUND CLINICAL HISTORY: BILATERAL breast lumps. COMPARISON: 10/28/2016. TECHNIQUE: Digital BILATERAL mammogram in 4 projections with computer-aided detection. Tomosynthesis was used in this interpretation. Real-time ultrasound imaging of BILATERAL breast with imaging documentation. BREAST COMPOSITION: The breasts are almost entirely fatty. FINDINGS: 3D CC/MLO BILATERAL mammogram images submitted. No suspicious masses or architectural distortion. No suspicious calcifications or adenopathy. Targeted RIGHT breast ultrasound performed. At 8 o`clock 17 cm from the nipple, there is normal fibroglandular tissue. Targeted LEFT breast ultrasound performed. At 9 o`clock 15 cm from the nipple and 4 o`clock 17 cm from the nipple, there is normal fibroglandular tissue. Additional ultrasound of the LEFT breast at 10 o`clock 10 cm from the nipple performed. Normal tissues noted. No fibrocystic change. No mass. No abnormal vascularity. IMPRESSION: No suspicious findings. No evidence of malignancy. RECOMMENDATIONS: Routine screening mammography starting at age 40. A lay language report of this examination will be provided to the patient. BI-RADS Category 2 Benign Dictated by Tavares Sanz MD @ 02/11/2025 11:16:08 AM/CRL:mary MILLER/Dictated by: Tavares Sanz MD @ 02/11/2025 11:16:00 AM (Electronically Signed)
--- NOTE | 2025-02-11 09:15 | CRLHL7_ITS ---
For Patients: As a result of the Century Cures Act, medical imaging exams and procedure reports are released immediately into your electronic medical record. You may view this report before your referring provider. If you have questions, please contact your health care provider. PLEASE SEE BILATERAL DIAGNOSTIC MAMMOGRAM SAME DAY. CRL:mary MILLER/Dictated by: Tavares Sanz MD @ 02/11/2025 10:30:00 AM (Electronically Signed)
== END 2025-02-11 08:32 | disposition home or self-care (01) ==
LOC: MAMMO 08:32
PROVIDERS: PCP Nurse Practitioner Family; Visit Provider Nurse Practitioner Family
DX: N63.10 Unspecified lump in the right breast, unspecified quadrant (principal); N63.20 Unspecified lump in the left breast, unspecified quadrant
CPT/HCPCS: 76642; 77066; G0279

== ENCOUNTER 2025-04-03 03:28 | Emergency (ER) | payer BC, SELFPAY ==
--- OUTSIDE RECORDS SUMMARY | 2025-04-03 03:31 | XMS_ITS | Data Portability ---
Author Organization [facility], [facility] Address [address] [place] [address] Care Team Providers Care Blueprint Developer Name Role Phone MARGUERITE GONZALEZ Primary Care Provider Assessment No assessment recorded. Plan of Treatment Reminders Order DateSubmit DateProviderLast Modified ByOrganization DetailsLast Modified TimeDetailsAppointmentsNone recorded.Laburinalysis, tqtdsheu56/08/2020 mmahamudNot ccpfqdjwe38/05/2021 14:46:28urinalysis, sdydnhsj44/03/2021 ATHENANot xlakgwjzq91/15/2021 09:37:36ReferralNone recorded.Proceduresbladder scan (PROC)THENANot kppdnrhar08/15/2021 09:37:11Surgeries None recorded.ImagingNone recorded.Medication Orderstamsulosin 0.4 mg capsule [id number] [id number], [place], [address], 06/13/2020 14:32:49 Patient TargetsNo targets recorded. Patient Instructions Encounter Date Encounter Id Patient Instructions Last Modified By Organization Details Last Modified Time 06/13/2020 [id number] will send urine for pathnostic, try tamsulosin for the urethral sx's.plan recheck in one month/ with CT urogram [email or web address] Not available 06/13/2020 14:35:06 07/07/2020 [id number] doing well with tamsulosin, will continue on this until refills gone, rtc if still sx's at that point. [email or web address] Not available 07/07/2020 15:10:27 Reason for Referral None Reported. Results Created Date Observation Date Name Description Value Unit Range Abnormal Flag Note LastModifiedBy Organization Detail LastModifiedTime 07/07/2020 07/07/2020 urinalysis, dipstick Color-Status [place] [facility] [address], [place], [address], 47/08/2020 14:45://08/2020urinalysis, dipstickGlucose-StatusNegativeNot Available[facility] [address], [place], [address], 10 14:45://08/2020urinalysis, dipstickBilirubin-StatusNegativeNot Available[facility] [address], [place], [address], 59 14:45:/urinalysis, dipstickKetones-StatusNegativeNot Available[facility] [address], [place], [address], 59 14:45:/urinalysis, dipstickNitrates-StatusnegativeNot Available[facility] [address], [place], [address], 82 14:45:urinalysis, dipstickBlood-StatusModerateNot Available[facility] [address], [place], [address], 55 14:45:urinalysis, dipstickLeuko-StatusNegativeNot Available[facility] [address], [place], [address], [address] 14:45:09/ladder scan (PROC)No observation recorded.BARCODE Not Uagnilpgy41/16/2021 10:21:3204/ladder scan (PROC)No observation recorded.BARCODENot Kcqjofqhm85/05/2021 17:56:5104 bladder scan (PROC)No observation recorded.BARCODENot Qifbqkxgi09/06/2021 14:28:3304T, urogramNo observation recorded.pxiapqsd86Czu Ipoajapba74/07/2021 16:07:42 Result Notes None recorded. Procedures Surgical History Date Name Laterality Status Provider Name and Address Organization Details Recorded Time 07/07/2020 [facility] 14:45:03 Imaging Results None recorded. Procedure Notes None recorded. Medical Equipment None Reported. Allergies No known drug allergies Medications Name Sig Start Date Stop Date Status Note LastModified by Organization Details LastModified Time fluconazole 100 mg tablet TAKE 1 TABLET BY MOUTH DAILY. 07/07/2020ompletedNot AvailableNot AvailableNot Availablecefuroxime axetil 250 mg tabletTAKE ONE TABLET BY MOUTH TWICE DAILYactiveNot AvailableNot AvailableNot Availableazithromycin 250 mg tabletTAKE 2 TABLETS BY MOUTH ON DAY 1, THEN TAKE 1 TABLET ONCE DAILY ON DAYS 2 THROUGH 5activeNot AvailableNot AvailableNot Availablefluconazole 150 mg tabletTAKE 1 TABLET BY MOUTH, MAY REPEAT IN 3-4 DAYS activeNot AvailableNot AvailableNot Availablesucralfate 1 gram tablettake 1 tablet by mouth 4 times dailyactiveNot AvailableNot AvailableNot Available phenazopyridine 200 mg tabletTAKE ONE TABLET BY MOUTH TWICE DAILY07/07/2020 completedNot AvailableNot AvailableNot Availablemetronidazole 0.75 % (37.5 mg/5 gram) vaginal gelInsert 1 applicatorful vaginally at bedtime for 5 nights.active Not AvailableNot AvailableNot Availableprednisone 20 mg tabletTAKE ONE TABLET BY MOUTH TWICE DAILYactiveNot AvailableNot AvailableNot Availableclobetasol 0.05 % topical creamAPPLY SMALL AMOUNT TOPICALLY TO AFFECTED AREA TWICE DAILY FOR 2 WEEKS NEEDED.activeNot AvailableNot AvailableNot Availablevalacyclovir 500 mg tabletTAKE 1 TABLET BY MOUTH TWICE DAILYactiveNot AvailableNot AvailableNot Availabletriamcinolone acetonide 0.1 % topical creamAPPLY TO AFFECTED AREA(S) TOPICALLY TWICE A DAYactiveNot AvailableNot AvailableNot Availableterbinafine HCl 250 mg tabletTAKE ONE TABLET BY MOUTH DAILY07/07/2020ompletedNot Available Not AvailableNot Availableamoxicillin 875 mg tabletTAKE ONE TABLET BY MOUTH TWICE DAILYactiveNot AvailableNot AvailableNot Availableamitriptyline 25 mg tabletTAKE ONE TABLET BY MOUTH AT BEDTIMEactiveNot AvailableNot AvailableNot Availabletamsulosin 0.4 mg capsuleTAKE ONE CAPSULE BY MOUTH DAILYactiveNot AvailableNot AvailableNot Availabledoxycycline monohydrate 100 mg capsuleTAKE 1 CAPSULE BY MOUTH TWICE DAILY FOR 14 DAYS07/07/2020ompletedNot AvailableNot AvailableNot Availableoseltamivir 75 mg capsuleTAKE 1 CAPSULE BY MOUTH TWICE DAILY FOR 5 DAYSactiveNot AvailableNot AvailableNot Availablelevofloxacin 500 mg tabletTAKE 1 TABLET BY MOUTH DAILY for 7 days07/07/2020ompletedNot AvailableNot AvailableNot Availablehydrocortisone 2.5 % topical ointmentAPPLY TO AFFECTED AREA(S) topically twice daily07/07/2020ompletedNot AvailableNot AvailableNot Availablefluticasone propionate 50 mcg/actuation nasal spray,suspensioninstill 2 SPRAYs into EACH NOSTR DAILYactiveNot AvailableNot AvailableNot Available azithromycin 500 mg tabletTAKE 2 TABLETS BY MOUTH DAILY07/07/2020ompletedNot AvailableNot AvailableNot Availablenitrofurantoin monohydrate/macrocrystals 100 mg capsuleTAKE ONE CAPSULE BY MOUTH TWICE DAILY07/07/2020ompletedNot Available Not AvailableNot Available Vitals Date Recorded Body height Body mass index (BMI) Body weight Provider Name and Address Organization Details Last Updated DateTime 06/13/2020 157.48 cm 31.1 kg/m2 69655.7 g [facility]c [facility]oo [place] [facility] 06/13/2020 14:02:26 Date Recorded Body height Body mass index (BMI) Body weight Provider Name and Address Organization Details Last Updated DateTime 07/07/2020 157.48 cm 31.1 kg/m2 41284.7 g Margarito Lenin [facility] 07/07/2020 14:35:32 Social History Question Answer Notes LastModified by Organization D etails LastModified Time Tobacco Smoking Status Never Smoker Alec Chilo edouard [facility] Oppqvyd6406/13/2020 14:03:50What Is Your Level Of Caffeine Consumption?Ewqswbckguo58Euyzfnaequr not drtarvhyg82/12/2021How Much Tobacco Do You Chew?NonebbeckersInformation not vzwfxlyfe57/05/2021ecreational Drug UseNo vbqptrp99Xfdqqisnbbd not cmoevbara92/12/2021Marital XlrydeLeyguofrjyndi79 Information not advinccqu96/12/2021What Was The Date Of Your Most Recent Tobacco Screening?06/13/20209267jpnrfog47Mccnogjuyee not /12/2021re You Sexually Active?Nwhtqgjlc23Knsihmxhmpb not ocaxmwrnc81/12/2021 Sex: Unknown Functional Status Question Answer Note LastModified by Organization D etails LastModified Time What is your level of alcohol consumption? None nfudrpe44Zzmyslditeh not /12/2021 Mental Status None recorded. Family History Relationship Description Onset Age of this Age Resolved Age Notes LastModified by Organization Details LastModified Time Father No current problems or disabilit y nevjnyi28Wcm mivdcsfus47/12/2021 14:03:39MotherNo current problems or disability wobtsxj74Emh ujhnjvowe90/12/2021 14:03:39 Medical History Condition Response Diabetes N [...] ICD10 Code Diagnosis IMO Codes Diagnosis Note [id number] Sebastián Clayton MD [facility] [address] [place] [address] 06/13/2020 13:45:12 06/16/2020 09:45:32 Microscopic hematuria 303288475 R31.29 Recurrent urinary tract uxxwhijdz850037902Z53.0 Urinary tract infectious cgncbdu73980689Y82.0 [id number] Clayton [facility] [address] [place] [address] 07/07/2020 14:22:53007/08/2020 14:53:32Recurrent urinary tract uvokznwvo536075885 N39.0 Polypoid bnettjqqcn432530786E06.2 Health Concerns Section Related Observation LastModified by Organization Detai ls LastModified Time None Recorded Concern Status LastModified by Organization Details LastModified Time None Recorded Advance Directives Directive None Recorded Payers Insurance Date Sequence Insurance Name Policy Number Policy Rojas Covered Member ID Rojas Member ID Guarantor Name 06/13/2020 1 [place]) [id number] Hanna L Leubner [id number] Hnana L [id number] L [id number] L [id number] (MEDICAID REPLACEMENT - HMO)Hanna L Leubner [id number] L [id number] (MEDICAID REPLACEMENT - HMO) [facility]ENTERDBBSJessika L [id number] L Leubner Notes Date Note Type Note Provider Name and Address Orga nization Details Recorded Time 06/13/2020 text/html sent for eval of microhematuria, UTI, UTI like sx's, recently finished doxycycline and sx's persisting so started amitriptylline and that has helped some. still felling lot of urethral discomfort, post void cramping. . PVR 24ml today. had CT last fall with no stones/obstruction. mom has kidney stones.Sebastián Clayton MD [address], [place], [address], [facility] Ueoeirx5706/13/2020 15:37:29007/07/2020text/html follow up UTI and urethritis. taking tamsulosin and tolerates it well, helping a lot with her voiding sx's. Had CT urogram today. looks OK on first view, will review formal read when available.Sebastián Clayton MD [address] [place] [address],[address], [place], [address], [facility] Qcymbhv2607/07/2020 15:10:50 OBGyn Episode No OBEpisode recorded.
--- OUTSIDE RECORDS SUMMARY | 2025-04-03 03:31 | XMS_ITS | Clinical Summary ---
Author Organization [facility] Address [address] [place] [address] Care Team Providers Care Chief Catalyst Operator Name Role Phone Luismary lou Malena JEFFRY Primary Care Provider + [phone] Allergies No known active allergies Medications MedicationSigDispense QuantityRefillsLast FilledStart DateEnd DateStatus metoprolol succinate (TOPROL XL) 25 mg Sustained-Release tablet TAKE ONE TABLET BY MOUTH DAILY for palpitations and blood pressure*02/02/2023 Active lidocaine 5 % ointment Indications:Anal fissureApply to anal fissure 2-3 times per day as needed pain. 1 g 4Active Encounters DateTypeDepartmentCare FminVidoxajkgqn16/26/2025Transcribe Orders [facility] [address] [place] [address] Lucio Ariza MD from Last 3 Months Social History Tobacco UseTypesPacks/DayYears UsedDateSmoking Tobacco: NeverSmokeless Tobacco: Never Tobacco Cessation:Counseling Given: Not Answered Alcohol UseStandard Drinks/WeekCommentsYes3 (1 standard drink = 0.6 oz pure alcohol)Social ConnectionsAnswerDate RecordedFrequency of Communication with Friends and FamilyNot on file3CommentsUnknownSex and Gender InformationValueDate RecordedSex Assigned at BirthNot on fileLegal SexFemale 04/17/2012 5:25 AM CSTGender IdentityNot on fileSexual OrientationNot on file Last Filed Vital Signs Vital SignReadingTime TakenCommentsBlood Ulvdubil756/7509/12/2023 2:53 PM CDT Swwec5539 2:53 PM CDTTemperature--Respiratory Rate--Oxygen Ihxstmxqkr05% 12/12/2023 2:53 PM CDTInhaled Oxygen Concentration--Vlsexy59.8 kg (193 lb 8 oz) 12/12/2023 2:53 PM PZKJrfryv921.5 cm (5' 2)02/08/2023 12:46 PM CSTBody Mass Index35.39104/10/2022 12:46 PM COMMISSIONS COORDINATOR Plan of Treatment Health MaintenanceDue DateLast DoneCommentsTetanus zkkmolj1008/19/1996Depression screening for age 12+1997HIV for age 15-65008/19/2000Hepatitis C screening for age 18-7908/20/2003Hepatitis B series for 19+ (1 of 3 - 19+ 3-dose series) 2004HPV series for age 9-45 (1 - 3-dose SCDM series)2012MI (ht and wt on same day) for age 18+OVID-19 vaccine series (2024- season)2024Influenza Vaccine (#1)2024Pap test for age 21-65 , 11/03/2023, 05/15/2019, Additional history exists Pneumococcal series for age 6-49Aged OutNo longer eligible based on patient's age to complete this topic Procedures Procedure NamePriorityDate/TimeAssociated DiagnosisCommentsHPV HIGH RISKRoutine 11/03/2023 10:45 AM CDT from Last 3 Months or Most Recently Relevant to Health Maintenance Results * (ABNORMAL) HPV HIGH RISK (11/03/2023 10:45 AM CDT)ComponentValueRef RangeTest MethodAnalysis TimePerformed AtPathologist SignatureTYPE 16NegativeNegative 11/07/2023 2:30 PM CDTALLINHIGHLAND DISTRICT H[facility]-CENTRAL LABORATORYTYPE 18 NsirktzrMuhfmkvp31/08/2023 2:30 PM [facility] LABORATORYOTHER HIGH RISK TYPESPositive(A)Bljzoinw47/05/2024 2:30 PM [facility] LABORATORYSpecimen (Source)Anatomical Location / LateralityCollection Method / VolumeCollection TimeReceived TimeOther (Cervical)11/03/2023 10:45 AM CDT11/04/2023 9:54 AM CDT Narrative [facility] - 11/07/2023 2:30 PM CDT Specimen is positive for the DNA of any one of, or combination of, the following high risk HPV types: 31, 33, 35, 39, 45, 51, 52, 56, 58, 59, 66, 68. HPV types 16 and 18 DNA were undetectable or below the pre-set threshold. ? Methodology: Riki Lloyd 4800 HPV Test Authorizing ProviderResult TypeResult StatusSaramarily POLANCOROBIOLOGYFinal ResultPerforming OrganizationAddressCity/State/ZIP CodePhone Number [facility] [address] [address], from Last 3 Months or Most Recently Relevant to Health [place] [address] Care Teams Team MemberRelationshipSpecialtyStart DateEnd Date Malena Aguayo PA-C [address] [place] [address] PCP - GeneralEmergency Medicine04/09/22
[2025-04-03 03:41] VITALS: BP 149/96; PULSE 95; RESP 16; TEMP 36.4; O2SAT 98; BMI 36.6
--- NOTE | 2025-04-03 04:43 | ED.NECK ---
HPI - Neck Pain/Injury General Chief Complaint: Neck Injury/Pain Stated Complaint: neck pain and arm pain/numbness Time Seen by Provider: 04/03/25 03:46 Source: patient Mode of arrival: ambulatory Limitations: no limitations History of Present Illness HPI Narrative: 39-year-old female with no prior history of similar symptoms presents to the emergency department for evaluation of pain in the left shoulder blade that radiates down the left arm, behind the left elbow and into the left palm and index finger. Symptomatic for the past 24 hours. No trauma or injury. Does not take any anticoagulants. No focal neurological deficits. Pain is improved by lifting the arm above the head and internally rotating the shoulder. No weakness in the hand. On specific questioning, has noticed a little bit of decreased sensation in the fingertips over time but nothing specific. No prior imaging. No recent chiropractic manipulation. She does have a massage device for her upper back, wonders if that could be contributing. No symptoms in the opposite right arm. Pain is constant and achy, sharp zingers at times. No primary care or urgent care visits for these symptoms. No prior injections. No prior surgery on the neck, no prior MRI. Past medical history notable for history of SVT and GERD. Current home medications are metoprolol 50 mg once daily she also has an IUD. No known drug allergies. Smoker. ROS is notable for the musculoskeletal symptoms as above. Denies other neurological, skin, musculoskeletal or generalized changes. Related Data Home Medications ?Medication ?Instructions ?Recorded ?Confirmed levonorgestrel 1 device intrauterine ONCE 10/13/21 03/27/25 uyrkwtiolwty-Ye-wxmf-minerals 1 tab PO QDAY 10/13/21 03/27/25 valacyclovir 500 mg tablet mg PO 01/30/25 03/27/25 Previous Rx's ?Medication ?Instructions ?Recorded metoprolol succinate 25 mg 50 mg (2 x 25 mg) PO QDAY #180 tabs 12/20/24 tablet,extended release 24 hr Allergies Allergy/AdvReac Type Severity Reaction Status Date / Time No Known Drug Allergies Allergy Verified 03/27/25 10:02 [facility] Medical History Family history of breast cancer ?Z80.3 - Family history of malignant neoplasm of breast (ICD-10) Sessile serrated polyp of colon ?D12.6 - Benign neoplasm of colon, unspecified (ICD-10) Paresthesia ?R20.2 - Paresthesia of skin (ICD-10) Abnormal cervical Papanicolaou smear (11/28/12) ?R87.619 - Unspecified abnormal cytological findings in specimens from cervix uteri (ICD-10) Colon adenoma (~2018) ?D12.6 - Benign neoplasm of colon, unspecified (ICD-10) Normal echocardiogram (~03/11/23) 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 3 kids ( 21, 18. 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 does not use illicit drugs, recreational drugs IUD (intrauterine device) in place Never smoker What is your current living situation?: I presently have a place to live Problems where you live: no known problems In the past 12 months, utilities in danger of being shut off: no In past 12 months, lack of transportation kept you from medical appts, meetings, work, or getting things needed for daily living: no In the past 12 mos, have been you worried that your food would run out before you had money to buy more?: never true In the past 12 mos, the food you bought just didn't last and you didn't have money to buy more?: never true Smoking Status: Never smoker Do you use any of these nicotine containing products: None Second hand tobacco smoke exposure: No How often do you have a drink containing alcohol: monthly or less AUDIT-C Alcohol total score: 1 Non-prescribed substance use: denies use How often does anyone, including family, friends and others, physically hurt you: never How often does anyone, including family, friends and others, insult or talk down to you: never How often does anyone, including family, friends and others, threaten you with harm: never How often does anyone, including family, friends and others, scream or curse at you: never service: No Exam Const: Vital Signs, click to edit/add: Vital Signs - 24 hr 04/03/25 03:41 Temperature 97.6 F Pulse Rate [Pulse Oximeter] 95 Respiratory Rate 16 Blood Pressure [Ri ght Upper Arm] 149/96 H Pulse Oximetry 98 Oxygen Delivery Me thod Room Air Documenting provider has reviewed patient's vital signs: yes General appearance: well kempt Other: Mild distress due to pain but redirectable. Appears well nourished, well hydrated, nontoxic. HENMT: Common normals: normocephalic, moist oral mucous membranes and oropharynx normal Head and scalp: normocephalic Face and sinus: normal facial exam Mouth: oral and palatal mucosa normal Eye: Common normals: conjunctivae normal General eye: normal appearance of both eyes Conjunctiva: conjunctiva(e) normal Neck & C-Spine: Common normals: full ROM and no lymphadenopathy General: normal visual inspection Cervical spine: cervical ROM normal and trapezius muscle tenderness (Mild, left side); no pain with cervical ROM, no cervical spine tenderness, no step off deformity and no paracervical muscle tenderness Resp: Common normals: normal respiratory effort, no use of accessory muscles and clear to auscultation bilaterally Effort & inspection: able to speak in complete sentences Auscultation: clear to auscultation bilaterally Cardio: Common normals: regular rate, regular rhythm, S1 normal heart sound, S2 normal heart sound and no murmurs Rate: regular rate Rhythm: regular rhythm Heart sounds: S1 normal and S2 normal Extremity: Other: Right shoulder with normal range of motion, normal strength. Normal hand strength on the right side as well. Left side has normal range of motion of the shoulder, slight weakness to the supraspinatus but I think it was more positional due to her pain. That part of the exam was not fully reproducible. The elbow, wrist and hand has normal strength, normal range of motion and no deformity. Normal sensation as well. Psych: Appearance: well kempt Attitude: engaged Activity/motor behavior: appropriate eye contact Attention/concentration: attention grossly intact Memory/cognition: memory grossly intact Insight: insight good Judgement: judgment good Skin: Common normals: no rashes or lesions noted General skin exam: no rashes or lesions noted Course Course ED Course: 39-year-old female with left neck pain radiating down the left arm suspicious for cervical radiculopathy, specifically C6. No trauma or injury that would suggest fracture or dangerous pathology. Shoulder exam is reassuring that this is not likely a rotator cuff issue primarily. Counseled patient on findings. Counseled the MRI can be more sensitive than x-ray but is not available to us in the middle of the night on a holiday. I recommended a course of prednisone 20 mg twice daily for 5 days and Flexeril 10 mg b.i.d.. I am concerned about her getting an appointment due to the holiday for the next few days and upcoming weekend. Because of this I am willing to give her a few Percocet tablets but have cautioned her to use these sparingly. We discussed Tylenol and ibuprofen as primary means of pain control. Make a follow-up appointment with primary care doctor in about a week to see how things are going. She should try to schedule physical therapy as soon as possible. Alarm symptoms including loss of function in the arm, especially motor function would warrant emergent ED re-evaluation. She verbalizes understanding and agreement. Written instructions are provided Vital Signs Vital signs: Initial Vital Signs Temperature 97.6 F 04/03/25 03:41 Temperature Source Temporal Artery Scan 04/03/25 03:41 Pulse Rate 95 04/03/25 03:41 Respiratory Rate 16 04/03/25 03:41 Blood Pressure 149/96 H 04/03/25 03:41 Blood Pressure Mean 113 H 04/03/25 03:41 Blood Pressure Position Semi-Fowlers 04/03/25 03:41 Pulse Oximetry 98 04/03/25 03:41 Oxygen Delivery Method Room Air 04/03/25 03:41 Vital Signs Temperature 97.6 F 04/03/25 03:41 Pulse Rate 95 04/03/25 03:41 Respiratory Rate 16 04/03/25 03:41 Blood Pressure 149/96 H 04/03/25 03:41 Pulse Oximetry 98 04/03/25 03:41 Oxygen Delivery Method Room Air 04/03/25 03:41 Temperature 97.6 F 04/03/25 03:41 Pulse Rate 95 04/03/25 03:41 Respiratory Rate 16 04/03/25 03:41 Blood Pressure 149/96 H 04/03/25 03:41 Pulse Oximetry 98 04/03/25 03:41 Oxygen Delivery Method Room Air 04/03/25 03:41 Discharge Plan Discharge Clinical Impression: Herniation of intervertebral disc at C5-C6 level Patient Disposition: Home, Self-Care Condition: Stable Instructions: Cervical Disc Herniation (ED) Additional Instructions: As we discussed, your symptoms are consistent with the nerve being compressed at the C6 level on the left side. This usually happens from gradual buildup of arthritis until it pushes on the sensory fibers of that nerve causing sudden pain. X-rays do not tend to be overly helpful unless you do not have improvement of symptoms in a few days. Often, and MRIs the best test but is not available to us in the middle of the night on a holiday. I have started on prednisone 20 mg twice daily. Take the 1st dose as soon as you get home. Take your next dose at around 5:00 p.m. today. Then continue taking twice daily for 5 days but preferably not within 4 hours of bedtime. Try to space the morning and evening doses at least 8 hours apart. You may use Tylenol 1000 mg every 6 hours and or ibuprofen 600 mg every 6 hours. I have given her prescription for Flexeril which is a muscle relaxant. It will make you sleepy. You may take half to 1 full pill up to 2 times daily. I have also given you a very small supply of oxycodone since I do fear that you will have difficulty getting into urgent care or a primary care office for a few days because of holiday. Try to use this sparingly or not at all if it is not needed but you may take 1 pill up to every 6 hours for severe pain. Try to wean off of it as soon as possible. Most people started to notice improvement after 2 days on the prednisone but it is important that you schedule physical therapy to help heal the underlying herniated desk as the most important step in her treatment. Please make a follow-up appointment with her primary care doctor in a week to review how the course of prednisone went, get the referral for physical therapy if needed and decide if further imaging is needed. Come back to the emergency room if you have sudden weakness in the arm. Activity Level: Activity as Tolerated Discharge Diet: Regular Prescriptions: No Action valacyclovir 500 mg tablet PO hfpiwemqyphl-Nf-ndeo-minerals Tablet 1 tab PO QDAY levonorgestrel 20 mcg/24 hours (7 yrs) 52 mg intrauterine device 1 device intrauterine ONCE Rx Instructions: as a single dose metoprolol succinate 25 mg tablet extended release 24 hr 50 mg PO QDAY Qty: 180 0RF Rx Instructions: 2 tablets daily for palpitations and Blood pressure Follow Up/Referrals: Christin Ruvalcaba CNP [Primary Care Provider, Family Practice] Stand Alone Forms: MyHealth Info Instructions
== END 2025-04-03 04:56 | disposition home or self-care (01) ==
LOC: ED 04:37
PROVIDERS: Emergency Provider Family Medicine; PCP Nurse Practitioner Family
DX: M50.222 Other cervical disc displacement at C5-C6 level (principal)
CPT/HCPCS: 99283; 99284